=== PATIENT | female | born 1945 ===

== ENCOUNTER 2018-02-16 19:51 | Inpatient (IN) | payer MEDICARE, MEDICAID ==
--- NOTE | 2018-02-16 22:01 | ED PDOC ---
HPI: Psych/Substance Abuse Time Seen by Provider: 02/16/18 21:00 Chief Complaint (Nursing): Psychiatric Evaluation Chief Complaint (Provider): Psychiatric Evaluation History Per: Family (daughters) History/Exam Limitations: no limitations Onset/Duration Of Symptoms: Hrs Current Symptoms Are (Timing): Still Present Additional History Per: EMS Additional Complaint(s): 72 year old female was brought to the ED via EMS for psychiatric evaluation. Her two daughters have custody over the patient and state the patient does not have food and they brought her here for evaluation and admission. Patient has a history of dementia and Alzheimers. PMD: Gelacio Wilson Past Medical History Reviewed: Historical Data, Nursing Documentation, Vital Signs Vital Signs: Last Vital Signs Temp 98.4 F 02/16/18 20:02 Pulse 106 H 02/16/18 20:02 Resp 16 02/16/18 20:02 BP 167/94 H 02/16/18 20:02 Pulse Ox 98 02/16/18 20:02 - Medical History PMH: Alzheimer's Disease, Anemia, Dementia Denies: Chronic Kidney Disease - Family History Family History: States: Unknown Family Hx - Allergies Allergies/Adverse Reactions: Allergies Allergy/AdvReac Type Severity Reaction Status Date / Time cortisone Allergy RASH Verified 02/16/18 19:58 Penicillins Allergy REDNESS Verified 02/16/18 19:58 Review of Systems Review Of Systems: ROS cannot be obtained secondary to pt's inabilty to answer questions. Physical Exam - Reviewed Nursing Documentation Reviewed: Yes Vital Signs Reviewed: Yes - Physical Exam Appears: Positive for: Non-toxic, No Acute Distress Head Exam: Positive for: ATRAUMATIC, NORMAL INSPECTION, NORMOCEPHALIC Skin: Positive for: Normal Color, Warm, Dry. Negative for: Rash Eye Exam: Positive for: Normal appearance, EOMI, PERRL ENT: Positive for: Normal ENT Inspection Neck: Positive for: Normal, Painless ROM, Supple. Negative for: Decreased ROM Cardiovascular/Chest: Positive for: Regular Rate, Rhythm. Negative for: Murmur Respiratory: Positive for: Normal Breath Sounds. Negative for: Decreased Breath Sounds, Wheezing, Respiratory Distress Gastrointestinal/Abdominal: Positive for: Normal Exam, Soft. Negative for: Tenderness Back: Positive for: Normal Inspection. Negative for: L CVA Tenderness, R CVA Tenderness Extremity: Positive for: Normal ROM. Negative for: Tenderness, Pedal Edema, Deformity Neurologic/Psych: Positive for: Alert, Oriented (x3). Negative for: Motor/Sensory Deficits - Laboratory Results Result Diagrams: 02/16/18 21:30 02/16/18 22:10 - ECG O2 Sat by Pulse Oximetry: 98 (RA) Pulse Ox Interpretation: Normal Medical Decision Making Medical Decision Making: Time: 2125 Initial Impression: psychiatric evaluation Initial Plan: EKG Alcohol serum CMP Drug screen Crisis Evaluation CBC w/ Differential CXR Urinalysis Reevaluation Pt is medically cleared for admission and further psychiatric evaluation Scribe Attestation: Documented by Namrata Burns, acting as a scribe for Dexter Mancia PA-C. Provider Scribe Attestation: All medical record entries made by the Scribe were at my direction and personally dictated by me. I have reviewed the chart and agree that the record accurately reflects my personal performance of the history, physical exam, medical decision making, and the department course for this patient. I have also personally directed, reviewed, and agree with the discharge instructions and disposition. Disposition - Clinical Impression Clinical Impression: Dementia with behavioral disturbance - Patient ED Disposition Is Patient to be Admitted: Yes Discussed With : Frank Duran Doctor Will See Patient In The: Hospital Counseled Patient/Family Regarding: Studies Performed, Diagnosis, Need For Followup - Disposition Disposition Time: 23:50 Condition: STABLE Forms: [employer] (Vietnamese) - Pt Status Changed To: Hospital Disposition Of: Inpatient - Admit Certification Admit to Inpatient:: After my assessment, the patient will require hospitalization for at least two midnights. This is because of the severity of symptoms shown, intensity of services needed, and/or the medical risk in this patient being treated as an outpatient.
[2018-02-16 22:33] LABS: BASO % 0.6 % (0.0-2.0); EOS # 0.2 K/uL (0.0-0.7); EOS % 5.1 % (0.0-4.0); HEMOGLOBIN 13.4 g/dL (12.0-16.0); LYMPH # 1.4 K/uL (1.0-4.3); MEAN CORPUSCULAR HEMOGLOBIN 30.3 pg (27.0-31.0); MEAN CORPUSCULAR HGB CONC 33.7 g/dL (33.0-37.0); MONO # 0.4 K/uL (0.0-0.8); MONO % 8.9 % (0.0-10.0); NEUT # 2.7 K/uL (1.8-7.0); NEUT % 56.4 % (50.0-75.0); NRBC % 0.2 % (0.0-0.0); RBC 4.41 Mil/uL (3.80-5.20); WHITE BLOOD COUNT 4.9 K/uL (4.8-10.8)
[2018-02-16 22:35] LABS: URINE BILIRUBIN NEGATIVE (NEGATIVE); URINE BLOOD SMALL (NEGATIVE); URINE CLARITY CLEAR (Clear); URINE COLOR YELLOW (YELLOW); URINE GLUCOSE (UA) NEG (NEGATIVE); URINE LEUKOCYTE ESTERASE NEG Leu/uL (Negative); URINE PROTEIN NEGATIVE (NEGATIVE); URINE UROBILINOGEN 0.2-1.0 mg/dL (0.2-1.0)
[2018-02-16 22:48] LABS: BARBITURATES, UR NEGATIVE (NEGATIVE); BENZODIAZEPINES, UR NEGATIVE (NEGATIVE); OPIATES, UR NEGATIVE (NEGATIVE); PHENCYCLIDINE, UR NEGATIVE (NEGATIVE)
[2018-02-16 23:02] LABS: BLOOD UREA NITROGEN 16 mg/dl (7-17); CALCIUM 8.9 mg/dL (8.4-10.2); GFR NON-AFRICAN AMERICAN > 60
[2018-02-16 23:03] LABS: ALB/GLOB RATIO 1.2 (1.0-2.1); ALT/SGPT 22 U/L (9-52); AST/SGOT 22 U/L (14-36)
[2018-02-17] MEDS ORDERED: Magnesium Hydroxide Susp 30 ml UD PO PRN (02:55)
[2018-02-17] MEDS ORDERED: Alum-Mag Hydrox-Simethicone Susp (30 mL) PO PRN (02:55)
[2018-02-17] MEDS ORDERED: Bismuth Subsalicylate 262 mg/15 ml Sus (240 ml) PO PRN (02:55)
[2018-02-17 08:07] LABS: T4 6.61 ug/dl (5.5-11.0)
[2018-02-17] MEDS: Levothyroxine 75 MCG TAB PO SCH (11:10)
--- NOTE | 2018-02-17 11:40 | PCM.PSYCH ---
Initial Psychiatric Evaluation - Initial Psychiatric Evaluation Type of Admission: Voluntary Legal Status: DPOA Chief Complaint (in patient's own words): "My daughter's is doing something to me." Patient's Reaction to Hospitalization: HPI: 72 yo female w/ h/o Alzheimer's Dementia, presents w/ worsening memory, paranoia that she is being poisoned or contaminated, feelings that her daughter is mistreating her, belief that someone broke into her home and changed the alarm, tangential speech, mood lability, poor insight/judgment. Patient has also been hoarding at home. She did not have food at home and has decreased ability to care for herself. Automotive Dismantler discussed case w/ patient's daughter, Denise Atkins ([phone]), who gave curriculum writer to modify medications as psychiatrically and medically indicated. Automotive Dismantler informed patient's daughter that there is an increased risk of with treatment with antipsychotics in patient's w/ dementia. PPHx: No history of psychiatric admissions or medications PMHx: Hypothyroidism; HLD, anemia, h/o bladder surery, h/o colon polyp resection ALL: Cortison, PCN SHx: Lives alone, denies drugs/etoh/ cig use Current Medications: Active Medications Generic Name Dose Route Start Last Admin Trade Name Freq PRN Reason Stop Dose Admin Acetaminophen 650 mg 02/17/18 02:55 02/17/18 03:12 Tylenol 325mg Tab PO 650 mg Q4 PRN Administration Pain, moderate (4-7) Al Hydrox/Mg Hydrox/Simethicone 30 ml 02/17/18 02:55 Maalox Plus 30 Ml PO Q4 PRN Dyspepsia Bismuth Subsalicylate 524 mg 02/17/18 02:55 Pepto-Bismol PO Q4 PRN Diarrhea Donepezil HCl 5 mg 02/17/18 22:00 Aricept PO HS TYSHAWN Levothyroxine Sodium 75 mcg 02/17/18 11:30 02/17/18 11:10 Synthroid PO 75 mcg DAILY@0630 TYSHAWN Administration Lorazepam 0.5 mg 02/17/18 02:55 Ativan PO 03/03/18 02:56 HS PRN Insomnia Lorazepam 0.5 mg 02/17/18 02:55 Ativan PO 03/03/18 02:56 Q6 PRN Anixety/Agitation Magnesium Hydroxide 30 ml 02/17/18 02:55 Milk Of Magnesia PO HS PRN Constipation Risperidone 0.25 mg 02/17/18 22:00 Risperidone Odt 0.25mg PO HS TYSHAWN Past Psychiatric History - Past Psychiatric History Previous Treatment History: None Pertinent Medical Hx (Current Medical&Sleep Prob, Allergies): Allergies Allergy/AdvReac Type Severity Reaction Status Date / Time cortisone Allergy RASH Verified 02/16/18 19:58 Penicillins Allergy REDNESS Verified 02/16/18 19:58 Levothyroxine [Synthroid] 75 mcg PO DAILY 02/17/18 Review of Systems - Psychiatric Psychiatric: As Per HPI, Anxiety, Behavioral Changes, Change in Appetite, Difficulty Concentrating, Irritability, Memory Loss, Mood Swings, Paranoia Mental Status Examination - Personal Presentation Personal Presentation: Looks stated age - Affect Affect: Constricted - Motor Activity Motor Activity: Calm - Reliability in Providing Information Reliability in Providing Information: Poor, due to cognitve impairment - Speech Speech: Tangential - Mood Mood: Anxious - Formal Thought Process Formal Thought Process: Paranoia - Hallucinations/Delusions Additional comments: No AH/VH/paranoia/delusions - Obsessions/Compulsions Obsessions: No Compulsions: No - Cognitive Functions Orientation: Person, Time Sensorium: Alert Attention/Concentration: Easily distracted Judgement: Imparied, as evidence by: Poor judgement, Imparied, as evidence by: Lack of insight into illness Memory: Recent impaired, as evidence by: Inability to recall events of the day, Recent imparied as evidence by:Inability to complete 3/3 object recall - Risk Risk: Diminished functioning - Strength & Assets Inventory Strength & Assets Inventory: Family support - Limitations Limitations: Living alone, Decreased memory, recent DSM 5 DX - DSM 5 DSM 5 Diagnosis: Dementia with behavioral disturbance; Psychosis NOS - Recommended/Plan of Treatment Treatment Recommendations and Plan of Treatment: Dementia with behavioral disturbance; Psychosis NOS -Admit to psychiatry unit -Individual and group therapy -Start Aricept 5 mg PO HS -Start Risperda 0.25 mg PO HS -Medicine consult -Disposition planning -Psychoeducation -Case discussed w/ POA Projected ELOS: 7-10 days Discharge Plan and Discharge Criteria: Discharge when patient is psychiatrically stable - Smoking Cessation Smoking Cessation Initiated: No Reason for not providing: Not indicated
--- NOTE | 2018-02-17 12:21 | RAD ---
Date of service: 02/16/2018 HISTORY: admit COMPARISON: No prior. TECHNIQUE: Chest PA and lateral FINDINGS: LUNGS: No active pulmonary disease. PLEURA: No significant pleural effusion identified. No pneumothorax apparent. CARDIOVASCULAR: No aortic atherosclerotic calcification present. Normal cardiac size. No pulmonary vascular congestion. OSSEOUS STRUCTURES: No significant abnormalities. VISUALIZED UPPER ABDOMEN: Normal. OTHER FINDINGS: None. IMPRESSION: No active disease.
[2018-02-17 17:54] LABS: FOLATE 13.5 ng/mL
[2018-02-17] MEDS ORDERED: RISPERIDONE 0.25 MG ODT PO SCH (22:00)
--- NOTE | 2018-02-18 00:16 | CP.PCM.HP ---
History of Present Illness - History of Present Illness History of Present Illness: CC: Refusing to take her Medication due to Paranoid Behaviour History of Present Illness: A 72 year old female was brought to the ED via EMS for psychiatric evaluation. Her two daughters have custody over the patient and state the patient does not have food and they brought her here for evaluation and admission. Patient has a history of dementia and Alzheimers with Paranoid Behaviour with refusing to take her medications. Patient states her daughter was bothering her, and the patient states that she told her daughter that she will report her to the legal systems. Present on Admission - Present on Admission Any Indicators Present on Admission: No Review of Systems - Review of Systems All systems: reviewed and no additional remarkable complaints except Review of Systems: as per HPI Past Patient History - Past Medical History & Family History Past Medical History?: Yes Past Family History: Reviewed and not pertinent - Past Social History Smoking Status: Never Smoked Alcohol: None Drugs: Denies - CARDIAC Hx Cardiac Disorders: No Hx Hypercholesterolemia: Yes Hx Hypertension: No - PULMONARY Hx Tuberculosis: No - NEUROLOGICAL Hx Alzheimer's Disease: Yes Hx Dementia: Yes - HEENT Hx HEENT Problems: No - RENAL Hx Chronic Kidney Disease: No - ENDOCRINE/METABOLIC Hx Endocrine Disorders: No Hx Hypothyroidism: Yes - HEMATOLOGICAL/ONCOLOGICAL Hx Anemia: Yes - INTEGUMENTARY Hx Dermatological Problems: No - MUSCULOSKELETAL/RHEUMATOLOGICAL Hx Musculoskeletal Disorders: No Hx Falls: No - GASTROINTESTINAL Hx Gastrointestinal Disorders: No - GENITOURINARY/GYNECOLOGICAL Hx Sexually Transmitted Disorders: No - PSYCHIATRIC Hx Substance Use: No - SURGICAL HISTORY Hx Surgeries: No - ANESTHESIA Hx Anesthesia: No Meds Allergies/Adverse Reactions: Allergies Allergy/AdvReac Type Severity Reaction Status Date / Time cortisone Allergy RASH Verified 02/16/18 19:58 Penicillins Allergy REDNESS Verified 02/16/18 19:58 Physical Exam - Constitutional Appears: Well, No Acute Distress - Head Exam Head Exam: ATRAUMATIC, NORMAL INSPECTION, NORMOCEPHALIC - Eye Exam Eye Exam: EOMI, Normal appearance, PERRL Pupil Exam: NORMAL ACCOMODATION, PERRL - ENT Exam ENT Exam: Mucous Membranes Moist, Normal Exam - Neck Exam Neck exam: Positive for: Normal Inspection - Respiratory Exam Respiratory Exam: Clear to Auscultation Bilateral, NORMAL BREATHING PATTERN - Cardiovascular Exam Cardiovascular Exam: REGULAR RHYTHM, +S1, +S2 - GI/Abdominal Exam GI & Abdominal Exam: Normal Bowel Sounds, Soft. absent: Tenderness - Extremities Exam Extremities exam: Positive for: full ROM, normal capillary refill, normal inspection - Back Exam Back exam: FULL ROM, NORMAL INSPECTION - Neurological Exam Neurological exam: Alert, CN II-XII Intact, Normal Gait, Oriented x3, Reflexes Normal - Psychiatric Exam Additional comments: +Paranoid. Tangential. - Skin Skin Exam: Dry, Intact, Normal Color, Warm Results - Vital Signs Recent Vital Signs: Last Vital Signs Temp 98.2 F 02/17/18 15:51 Pulse 69 02/17/18 15:51 Resp 18 02/17/18 15:51 BP 119/60 02/17/18 15:51 Pulse Ox 98 02/17/18 02:07 - Labs Result Diagrams: 02/22/18 07:30 02/22/18 07:30 Labs: Laboratory Results - last 24 hr 02/17/18 02/17/18 02/17/18 06:15 06:15 06:15 Hemoglobin A1c 5.8 Ferritin 37.0 Triglycerides 85 Cholesterol 158 LDL Cholesterol Direct 103 HDL Cholesterol 49 Vitamin B12 314 Folate 13.5 Free T4 1.00 Thyroxine (T4) 6.61 TSH 3rd Generation 2.25 RPR 02/17/18 06:15 Hemoglobin A1c Ferritin Triglycerides Cholesterol LDL Cholesterol Direct HDL Cholesterol Vitamin B12 Folate Free T4 Thyroxine (T4) TSH 3rd Generation RPR Nonreactive Assessment & Plan (1) Dementia with behavioral disturbance Assessment and Plan: Paranoid Personality Status: Acute Priority: Medium (2) Hypothyroidism (acquired) Status: Acute Priority: Low - Assessment and Plan (Free Text) Plan: C/w Current Care as per Psych recommendation.
[2018-02-18] MEDS: Levothyroxine 75 MCG TAB PO SCH (06:24)
--- NOTE | 2018-02-18 10:49 | PCM.BM ---
<Maren Mulleniraida Stein - Last Filed: 02/18/18 10:47> Treatment Plan Problems - Problems identified on initial assessmt Delusions Date Initiated: 02/18/18 Time Initiated: 10:48 Assessment reference: HP, NA Status: Active Problem 2 Date Initiated: 02/18/18 Time Initiated: 10:49 Assessment reference: HP, NA Status: Active Treatment assets and liabiliti Patient Assests: ADL independent, negotiates basic needs Patient Liabilities: live alone, relationship conflicts, medical problems, imparied memory - Milieu Protocol Maintain good personal hygiene: daily Encourage regular showers, daily Remind patient to perform daily oral care, daily Assist patient to perform ADL's Conduct patient checks and document Observation sheet: Q15 minutes Maintain personal safety: every shift Educate patient to report safety concerns to staff, every shift Monitor environment for contraband/sharps Medication safety: Monitor for expected outcome, potential side effects: every shift, Assess barriers to learning: every shift, Assess readiness for medication education: every shift Milieu Narrative: Dementia with behavioral disturbance; Psychosis NOS -Admit to psychiatry unit -Individual and group therapy -Start Aricept 5 mg PO HS -Start Risperda 0.25 mg PO HS -Medicine consult -Disposition planning -Psychoeducation -Case discussed w/ POA Discharge/Continuing Care - Treatment Team Participation Patient/Family/SO Statement: Dementia with behavioral disturbance; Psychosis NOS -Admit to psychiatry unit -Individual and group therapy -Start Aricept 5 mg PO HS -Start Risperda 0.25 mg PO HS -Medicine consult -Disposition planning -Psychoeducation -Case discussed w/ POA <Madonna Fagan - Last Filed: 02/18/18 11:13> - Diagnosis (1) Dementia with behavioral disturbance Status: Acute Interventions: Medication management, Individual and group therapy, Psychoeducation 02/18/18 11:14 (2) Psychosis Status: Acute Interventions: Medication management, Individual and group therapy, Psychoeducation 02/18/18 11:14 <Dom Flores - Last Filed: 02/20/18 19:45> Family Contact Family involvement: Family/SO is involved Family contact: Patient agrees to contact, Family has been contacted by patient, Telephone contact initiated by staff Family contact name: Denise BenavidezaurelioBarrientos Family contacted how many times per week?: 4 Family contact comment: Vending Service Technician spoke with pt's daughter and POA, Denise [phone], to gain collateral and discuss treatment and discharge. Denise reported that pt was brought to the ED after pt's other daughter came to visit her apartment and found it to be extremely hot and pt did not have any food in her refrigerator. Denise reported that pt will not speak to her or allow her into her apartment because the pt believes that Denise is poisoning her. Denise reported that pt was residing in [place] near her other daughter and would call Denise and tell her that the other daughter was trying to kill her or say that she attempted to hit her with a car. Pt also called the police in September with fears that someone was attempting to break into her apartment to poison her. Denise reported that the police found all of pt's belongings in boxes. Denise reported that pt has no prior psych history, but was diagnosed with Alzheimer's Disease on Oct 29, 2015 by Jeni Vanegas. Pt's two daughters do not feel that pt is safe to return home and are hoping to have pt placed in Long-term care. - Goals for Treatment Patient goals for treatment: Pt unable to formulate goals due to dementia. Patient's family/SO goals for treatment: Daughter would like pt placed in long- term care where gher dementia can be specially treated. Discharge/Continuing Care - Education Needs Education Needs: Family Medication, Family Diagnosis/Disease Process, Family Coping Skills, Family Aftercare Safety Plan, Patient Medication, Patient Diagnosis/Disease Process, Patient Coping Skills, Patient Aftercare Safety Plan - Discharge Discharge Criteria: Tolerates medication w/o severe side effects, Free of paranoid thoughts, Free of agitation, Reduction of target symptoms Discharge to:: [facility]way Facility - Treatment Team Participation Patient/Family/SO Statement: 02/20/18 19:44 Pt seen in team on 02/18/18. Pt unable to participate due to extreme paranoia toward family, no insight into condition, and resistance to placement and diagnosis of dementia. Discussed with Family/SO: Yes Was Patient/Family/SO present at Treatment Team Meeting: Yes
--- NOTE | 2018-02-18 11:18 | PCM.PYCHPN ---
Psychiatric Progress Note - Psychiatric Progress Note Patient seen today, length of contact: Pt evaluated, case discussed w/ team, chart reviewed Patient Chief Complaint: "My daughter's is doing something to me." Problems Identified/Issues Discussed: Patient refused to take medications last night. She continues to be paranoid, expressing beliefs that her son-in-law wants to kill her and that her daughter wants to steal all of her money. She continues to have poor insight/judgment and does not believe she has any memory deficits. Medication Change: No Medical Record Reviewed: Yes Consults ordered or reviewed: Medicine consult Mental Status Examination - Cognitive Function Orientation: Person, Time Memory: Impaired Association: Loose Fund of Knowledge: Poor Decription of patient's judgement and insights: Poor I/J - Mood Mood: Anxious - Affect Affect: Constricted - Formal Thought Process Formal Thought Process: Paranoia Psychotic Thoughts and Behaviors: +Paranoia - Suicidal Ideation Suicidal Ideation: No - Homicidal Ideation Homicidal Ideation: No Goal/Treatment Plan - Goal/Treatment Plan Need for Continued Stay: Remain at risks for inpatient hospitalization, Severe functional impairment Progress Toward Problem(s) and Goals/Treatment Plan: Dementia with behavioral disturbance; Psychosis NOS -Individual and group therapy -Continue to offer Aricept and Risperdal; patient current refusing -Medicine consult -Disposition planning -Psychoeducation -Case discussed w/ POA
--- NOTE | 2018-02-18 16:42 | CP.PCM.PN ---
Subjective - Date & Time of Evaluation Date of Evaluation: 02/18/18 Time of Evaluation: 13:10 Objective - Vital Signs/Intake and Output Vital Signs (last 24 hours): Temp Pulse Resp BP Pulse Ox 98.4 F 71 18 123/78 98 02/18/18 16:04 02/18/18 16:04 02/18/18 16:04 02/18/18 16:04 02/17/18 02:07 - Medications Medications: Current Medications Acetaminophen (Tylenol 325mg Tab) 650 mg PO Q4 PRN PRN Reason: Pain, moderate (4-7) Last Admin: 02/17/18 03:12 Dose: 650 mg Al Hydrox/Mg Hydrox/Simethicone (Maalox Plus 30 Ml) 30 ml PO Q4 PRN PRN Reason: Dyspepsia Bismuth Subsalicylate (Pepto-Bismol) 524 mg PO Q4 PRN PRN Reason: Diarrhea Donepezil HCl (Aricept) 5 mg PO HS [facility] Last Admin: 02/18/18 00:57 Dose: Not Given Levothyroxine Sodium (Synthroid) 75 mcg PO DAILY@0630 [facility] Last Admin: 02/18/18 06:24 Dose: 75 mcg Lorazepam (Ativan) 0.5 mg PO HS PRN PRN Reason: Insomnia Stop: 03/03/18 02:56 Lorazepam (Ativan) 0.5 mg PO Q6 PRN PRN Reason: Anixety/Agitation Stop: 03/03/18 02:56 Magnesium Hydroxide (Milk Of Magnesia) 30 ml PO HS PRN PRN Reason: Constipation Risperidone (Risperdal M-Tab) 0.5 mg PO BID [facility] - Labs Labs: 02/16/18 21:30 02/16/18 22:10
[2018-02-18] MEDS: Risperidone M tab 0.5MG PO SCH (21:15)
[2018-02-19] MEDS: Levothyroxine 75 MCG TAB PO SCH (06:00)
[2018-02-19] MEDS: Risperidone M tab 0.5MG PO SCH ×2 (08:33→21:09)
--- NOTE | 2018-02-19 20:45 | CP.PCM.PN ---
Subjective - Date & Time of Evaluation Date of Evaluation: 02/19/18 Time of Evaluation: 16:15 Objective - Vital Signs/Intake and Output Vital Signs (last 24 hours): Temp Pulse Resp BP Pulse Ox 97.9 F 88 20 129/69 98 02/19/18 15:34 02/19/18 15:34 02/19/18 15:34 02/19/18 15:34 02/17/18 02:07 - Medications Medications: Current Medications Acetaminophen (Tylenol 325mg Tab) 650 mg PO Q4 PRN PRN Reason: Pain, moderate (4-7) Last Admin: 02/17/18 03:12 Dose: 650 mg Al Hydrox/Mg Hydrox/Simethicone (Maalox Plus 30 Ml) 30 ml PO Q4 PRN PRN Reason: Dyspepsia Bismuth Subsalicylate (Pepto-Bismol) 524 mg PO Q4 PRN PRN Reason: Diarrhea Donepezil HCl (Aricept) 5 mg PO HS [facility] Last Admin: 02/18/18 21:15 Dose: Not Given Levothyroxine Sodium (Synthroid) 75 mcg PO DAILY@0630 [facility] Last Admin: 02/19/18 06:00 Dose: 75 mcg Lorazepam (Ativan) 0.5 mg PO HS PRN PRN Reason: Insomnia Stop: 03/03/18 02:56 Lorazepam (Ativan) 0.5 mg PO Q6 PRN PRN Reason: Anixety/Agitation Stop: 03/03/18 02:56 Magnesium Hydroxide (Milk Of Magnesia) 30 ml PO HS PRN PRN Reason: Constipation Risperidone (Risperdal M-Tab) 0.5 mg PO BID [facility] Last Admin: 02/19/18 08:33 Dose: Not Given - Labs Labs: 02/16/18 21:30 02/16/18 22:10
--- NOTE | 2018-02-19 22:24 | PCM.PYCHPN ---
Psychiatric Progress Note - Psychiatric Progress Note Patient seen today, length of contact: Pt evaluated, case discussed w/ team, chart reviewed Patient Chief Complaint: came to hospital for being upset does not think she needs medicine, staff reports that pt. continues to be intrusive although somewhat more redirectable. rx adherent, seen in social area. Problems Identified/Issues Discussed: alteration in mood alteration in level of function Medical Problems: per chart Diagnostic Results: per psychiatry per medicine per nursing per nephrology social worker per recreational therapy Medication Change: No Medical Record Reviewed: Yes Consults ordered or reviewed: pt seen by hospitalist Mental Status Examination - Cognitive Function Orientation: Person, Time Memory: Impaired Association: Loose Fund of Knowledge: Poor Decription of patient's judgement and insights: impaired - Mood Mood: Anxious - Affect Affect: Broad - Speech Speech: Appropriate - Formal Thought Process Formal Thought Process: Paranoia, Circumstantial Psychotic Thoughts and Behaviors: somewhat improved - Suicidal Ideation Suicidal Ideation: No - Homicidal Ideation Homicidal Ideation: No Goal/Treatment Plan - Goal/Treatment Plan Need for Continued Stay: Remain at risks for inpatient hospitalization, Severe functional impairment Progress Toward Problem(s) and Goals/Treatment Plan: inpt milieu vital signs/clinical observation per protocol and per clinical adjust meds per clinical status discharge planning in process Estimated Date of D/C: 02/23/18 - Smoking Cessation Smoking Cessation Initiated: No Reason for not providing: pt defers
[2018-02-20] MEDS: Levothyroxine 75 MCG TAB PO SCH (06:05)
[2018-02-20] MEDS: Risperidone M tab 0.5MG PO SCH ×2 (11:03→16:15)
--- NOTE | 2018-02-20 20:07 | PCM.PYCHPN ---
Psychiatric Progress Note - Psychiatric Progress Note Patient seen today, length of contact: Pt evaluated, case discussed w/ team, chart reviewed Patient Chief Complaint: PT denies having mental illness and denies needing medication-pt refused medication (psychiatric), seen in social area, pt complained of rectal pain seen staff Dr maribeth hughes per staff. _ Problems Identified/Issues Discussed: alteration in mood alteration in level of function Medical Problems: per chart Diagnostic Results: per psychiatry per medicine per nursing per social services coordinator per recreational therapy DSM 5 Symptoms Update: continues to be paranoid refusing medications (psychiatric) Medication Change: No Medical Record Reviewed: Yes Consults ordered or reviewed: pt seen by dr robin Mental Status Examination - Cognitive Function Orientation: Person, Time Memory: Impaired Association: Loose Fund of Knowledge: Poor Decription of patient's judgement and insights: impaired - Mood Mood: Anxious - Affect Affect: Broad - Speech Speech: Appropriate - Formal Thought Process Formal Thought Process: Paranoia, Circumstantial Psychotic Thoughts and Behaviors: unchanged - Suicidal Ideation Suicidal Ideation: No - Homicidal Ideation Homicidal Ideation: No Goal/Treatment Plan - Goal/Treatment Plan Need for Continued Stay: Remain at risks for inpatient hospitalization, Severe functional impairment Progress Toward Problem(s) and Goals/Treatment Plan: inpt milieu vital signs/clinical observation per protocol and per clinical adjust meds per clinical status-pt has been refusing psychiatric medications discharge planning in process Estimated Date of D/C: 02/23/18 - Smoking Cessation Smoking Cessation Initiated: No Reason for not providing: pt defers
--- NOTE | 2018-02-20 20:58 | CP.PCM.PN ---
Subjective - Date & Time of Evaluation Date of Evaluation: 02/20/18 Time of Evaluation: 15:00 Objective - Vital Signs/Intake and Output Vital Signs (last 24 hours): Temp Pulse Resp BP Pulse Ox 98.6 F 78 20 121/69 98 02/20/18 05:57 02/20/18 15:49 02/20/18 15:49 02/20/18 15:49 02/17/18 02:07 - Medications Medications: Current Medications Acetaminophen (Tylenol 325mg Tab) 650 mg PO Q4 PRN PRN Reason: Pain, moderate (4-7) Last Admin: 02/17/18 03:12 Dose: 650 mg Al Hydrox/Mg Hydrox/Simethicone (Maalox Plus 30 Ml) 30 ml PO Q4 PRN PRN Reason: Dyspepsia Last Admin: 02/20/18 20:56 Dose: 30 ml Bismuth Subsalicylate (Pepto-Bismol) 524 mg PO Q4 PRN PRN Reason: Diarrhea Donepezil HCl (Aricept) 5 mg PO HS [facility] Last Admin: 02/19/18 21:10 Dose: Not Given Hydrocortisone (Cortizone 1% Cream) 1 applic TOP TID [facility] Levothyroxine Sodium (Synthroid) 75 mcg PO DAILY@0630 [facility] Last Admin: 02/20/18 06:05 Dose: 75 mcg Lorazepam (Ativan) 0.5 mg PO HS PRN PRN Reason: Insomnia Stop: 03/03/18 02:56 Lorazepam (Ativan) 0.5 mg PO Q6 PRN PRN Reason: Anixety/Agitation Stop: 03/03/18 02:56 Magnesium Hydroxide (Milk Of Magnesia) 30 ml PO HS PRN PRN Reason: Constipation Risperidone (Risperdal M-Tab) 0.5 mg PO BID [facility] Last Admin: 02/20/18 16:15 Dose: Not Given - Labs Labs: 02/16/18 21:30 02/16/18 22:10
[2018-02-21] MEDS: Levothyroxine 75 MCG TAB PO SCH (05:55)
[2018-02-21] MEDS ORDERED: Hydrocortisone-Pramoxine(Proctofoam HC) EXT SCH (09:00)
[2018-02-21] MEDS: Risperidone M tab 0.5MG PO SCH ×2 (10:21→18:33)
--- NOTE | 2018-02-21 11:06 | PCM.PYCHPN ---
Psychiatric Progress Note - Psychiatric Progress Note Patient seen today, length of contact: Pt evaluated, case discussed w/ team, chart reviewed Patient Chief Complaint: "My daughter's is doing something to me." Problems Identified/Issues Discussed: Patient continues to be paranoid and refuses to take an antipsychotic. She continues to believe that her daughter wants to kill her. Cemetery Counselor called patient's PMD Dr. Davenport, , to discuss the case. He reports that patient has a history of dementia and paranoia. Cemetery Counselor informed PMD that patient would benefit from treatment with an antipsychotic and he was in agreement. Patient stated that she will take Risperdal, once she is able to talk with her PMD. Medication Change: No Medical Record Reviewed: Yes Consults ordered or reviewed: Medicine consult Mental Status Examination - Cognitive Function Orientation: Person, Time Memory: Impaired Association: Loose Fund of Knowledge: Poor - Mood Mood: Anxious - Affect Affect: Broad - Speech Speech: Appropriate - Formal Thought Process Formal Thought Process: Paranoia, Circumstantial Psychotic Thoughts and Behaviors: +Paranoia - Suicidal Ideation Suicidal Ideation: No - Homicidal Ideation Homicidal Ideation: No Goal/Treatment Plan - Goal/Treatment Plan Need for Continued Stay: Remain at risks for inpatient hospitalization, Severe functional impairment Progress Toward Problem(s) and Goals/Treatment Plan: Dementia with behavioral disturbance; Psychosis NOS -Individual and group therapy -Continue to offer Aricept and Risperdal -Medicine consult -Disposition planning -Psychoeducation -Case discussed w/ POA and patient's PMD Estimated Date of D/C: 02/25/18
--- NOTE | 2018-02-22 01:36 | CP.PCM.PN ---
Subjective - Date & Time of Evaluation Date of Evaluation: 02/21/18 Time of Evaluation: 23:00 Objective - Vital Signs/Intake and Output Vital Signs (last 24 hours): Temp Pulse Resp BP Pulse Ox 98.1 F 89 18 125/66 98 02/21/18 15:40 02/21/18 15:40 02/21/18 15:40 02/21/18 15:40 02/17/18 02:07 - Medications Medications: Current Medications Acetaminophen (Tylenol 325mg Tab) 650 mg PO Q4 PRN PRN Reason: Pain, moderate (4-7) Last Admin: 02/17/18 03:12 Dose: 650 mg Al Hydrox/Mg Hydrox/Simethicone (Maalox Plus 30 Ml) 30 ml PO Q4 PRN PRN Reason: Dyspepsia Last Admin: 02/20/18 20:56 Dose: 30 ml Bismuth Subsalicylate (Pepto-Bismol) 524 mg PO Q4 PRN PRN Reason: Diarrhea Donepezil HCl (Aricept) 5 mg PO HS [facility] Last Admin: 02/21/18 22:24 Dose: Not Given Hydrocortisone (Cortizone 1% Cream) 1 applic TOP TID [facility] Last Admin: 02/21/18 13:00 Dose: Not Given Levothyroxine Sodium (Synthroid) 75 mcg PO DAILY@0630 [facility] Last Admin: 02/21/18 05:55 Dose: 75 mcg Lorazepam (Ativan) 0.5 mg PO HS PRN PRN Reason: Insomnia Stop: 03/03/18 02:56 Lorazepam (Ativan) 0.5 mg PO Q6 PRN PRN Reason: Anixety/Agitation Stop: 03/03/18 02:56 Magnesium Hydroxide (Milk Of Magnesia) 30 ml PO HS PRN PRN Reason: Constipation Risperidone (Risperdal M-Tab) 0.5 mg PO BID [facility] Last Admin: 02/21/18 18:33 Dose: 0.5 mg - Labs Labs: 02/16/18 21:30 02/16/18 22:10
[2018-02-22] MEDS: Levothyroxine 75 MCG TAB PO SCH (05:46)
[2018-02-22 08:30] LABS: BASO % 0.9 % (0.0-2.0); EOS # 0.3 K/uL (0.0-0.7); EOS % 6.4 % (0.0-4.0); HEMOGLOBIN 14.8 g/dL (12.0-16.0); LYMPH # 1.5 K/uL (1.0-4.3); LYMPH % 31.3 % (20.0-40.0); MEAN CELL VOLUME 92.6 fl (81.0-99.0); MEAN CORPUSCULAR HEMOGLOBIN 30.3 pg (27.0-31.0); MEAN CORPUSCULAR HGB CONC 32.7 g/dL (33.0-37.0); MONO # 0.4 K/uL (0.0-0.8); MONO % 8.6 % (0.0-10.0); NEUT # 2.5 K/uL (1.8-7.0); NEUT % 52.8 % (50.0-75.0); NRBC % 0.1 % (0.0-0.0); RBC 4.89 Mil/uL (3.80-5.20); RED CELL DISTRIBUTION WIDTH 15.5 % (11.5-14.5); WHITE BLOOD COUNT 4.7 K/uL (4.8-10.8)
[2018-02-22 08:40] LABS: ALB/GLOB RATIO 1.2 (1.0-2.1); ALBUMIN 4.2 g/dL (3.5-5.0); ALT/SGPT 21 U/L (9-52); AST/SGOT 21 U/L (14-36); BLOOD UREA NITROGEN 21 mg/dl (7-17); CALCIUM 9.7 mg/dL (8.4-10.2); GFR NON-AFRICAN AMERICAN > 60
[2018-02-22] MEDS: Risperidone M tab 0.5MG PO SCH ×2 (09:02→17:13)
--- NOTE | 2018-02-22 10:44 | PCM.PYCHPN ---
Psychiatric Progress Note - Psychiatric Progress Note Patient seen today, length of contact: Pt evaluated, case discussed w/ team, chart reviewed Patient Chief Complaint: "My daughter's is doing something to me." Problems Identified/Issues Discussed: Patient continues to be paranoid towards her daughter and son-in-law. She believes her daughter is in danger from her son-in-law and also believes that her daughter tells her son-in-law to harm her. She also states that her daughter was hiding food from her and not allowing her to eat. She started taking the Risperdal yesterday. No adverse effects to medications reported. She continues to have poor insight into her chronic memory deficits. Medication Change: No Medical Record Reviewed: Yes Consults ordered or reviewed: Medicine consult Mental Status Examination - Cognitive Function Orientation: Person, Time Memory: Impaired Concentration: Poor Association: Loose Fund of Knowledge: Poor Decription of patient's judgement and insights: Poor I/J - Mood Mood: Anxious - Affect Affect: Broad - Speech Speech: Appropriate - Formal Thought Process Formal Thought Process: Paranoia, Circumstantial Psychotic Thoughts and Behaviors: +Paranoia - Suicidal Ideation Suicidal Ideation: No - Homicidal Ideation Homicidal Ideation: No Goal/Treatment Plan - Goal/Treatment Plan Need for Continued Stay: Remain at risks for inpatient hospitalization, Severe functional impairment Progress Toward Problem(s) and Goals/Treatment Plan: Dementia with behavioral disturbance; Psychosis NOS -Individual and group therapy -Continue Aricept and Risperdal; patient is now taking the medications -Medicine consult -Disposition planning -Psychoeducation -Case discussed w/ POA and patient's PMD Estimated Date of D/C: 02/25/18
--- NOTE | 2018-02-22 18:10 | CP.PCM.PN ---
Subjective - Date & Time of Evaluation Date of Evaluation: 02/22/18 Time of Evaluation: 15:15 - Subjective Subjective: No new complaint. Objective - Vital Signs/Intake and Output Vital Signs (last 24 hours): Temp Pulse Resp BP Pulse Ox 98.1 F 89 19 109/56 L 98 02/22/18 15:22 02/22/18 15:22 02/22/18 15:22 02/22/18 15:22 02/17/18 02:07 - Medications Medications: Current Medications Acetaminophen (Tylenol 325mg Tab) 650 mg PO Q4 PRN PRN Reason: Pain, moderate (4-7) Last Admin: 02/17/18 03:12 Dose: 650 mg Al Hydrox/Mg Hydrox/Simethicone (Maalox Plus 30 Ml) 30 ml PO Q4 PRN PRN Reason: Dyspepsia Last Admin: 02/20/18 20:56 Dose: 30 ml Bismuth Subsalicylate (Pepto-Bismol) 524 mg PO Q4 PRN PRN Reason: Diarrhea Donepezil HCl (Aricept) 5 mg PO HS [facility] Last Admin: 02/21/18 22:24 Dose: Not Given Hydrocortisone (Cortizone 1% Cream) 1 applic TOP TID [facility] Last Admin: 02/22/18 17:12 Dose: Not Given Levothyroxine Sodium (Synthroid) 75 mcg PO DAILY@0630 [facility] Last Admin: 02/22/18 05:46 Dose: 75 mcg Lorazepam (Ativan) 0.5 mg PO HS PRN PRN Reason: Insomnia Stop: 03/03/18 02:56 Lorazepam (Ativan) 0.5 mg PO Q6 PRN PRN Reason: Anixety/Agitation Stop: 03/03/18 02:56 Magnesium Hydroxide (Milk Of Magnesia) 30 ml PO HS PRN PRN Reason: Constipation Risperidone (Risperdal M-Tab) 0.5 mg PO BID [facility] Last Admin: 02/22/18 17:13 Dose: 0.5 mg - Labs Labs: 02/22/18 07:30 02/22/18 07:30 Assessment and Plan (1) Dementia with behavioral disturbance Status: Acute (2) Hypothyroidism (acquired) Status: Acute (3) Psychosis Status: Acute - Assessment and Plan (Free Text) Plan: Continue Current Care
[2018-02-23] MEDS: Levothyroxine 75 MCG TAB PO SCH (05:45)
[2018-02-23] MEDS: Risperidone M tab 0.5MG PO SCH ×2 (09:02→16:12)
--- NOTE | 2018-02-23 09:44 | PCM.PYCHPN ---
Psychiatric Progress Note - Psychiatric Progress Note Patient seen today, length of contact: Pt evaluated, case discussed w/ team, chart reviewed Patient Chief Complaint: "My daughter's is doing something to me." Problems Identified/Issues Discussed: Patient continues to be paranoid towards her daughter and son-in-law. She does not want to talk with her daughter unless there is a recording device to record the conversation. Regulator Tester informed patient that that is not possible. She has been compliant with Risperdal. No adverse effects to medications reported. She continues to have poor insight into her chronic memory deficits. Medication Change: No Medical Record Reviewed: Yes Consults ordered or reviewed: Medicine consult Mental Status Examination - Cognitive Function Orientation: Person, Time Memory: Impaired Concentration: Poor Association: Loose Fund of Knowledge: Poor Decription of patient's judgement and insights: Poor I/J - Mood Mood: Anxious - Affect Affect: Broad - Speech Speech: Appropriate - Formal Thought Process Formal Thought Process: Paranoia, Circumstantial Psychotic Thoughts and Behaviors: +Paranoia - Suicidal Ideation Suicidal Ideation: No - Homicidal Ideation Homicidal Ideation: No Goal/Treatment Plan - Goal/Treatment Plan Need for Continued Stay: Remain at risks for inpatient hospitalization, Severe functional impairment Progress Toward Problem(s) and Goals/Treatment Plan: Dementia with behavioral disturbance; Psychosis NOS -Individual and group therapy -Continue Aricept; patient currently refusing -Continue Risperdal 0.5 mg PO BID -Medicine consult -Disposition planning -Psychoeducation -Case discussed w/ POA and patient's PMD Estimated Date of D/C: 02/25/18
--- NOTE | 2018-02-23 23:50 | CP.PCM.PN ---
Subjective - Date & Time of Evaluation Date of Evaluation: 02/23/18 Time of Evaluation: 13:10 - Subjective Subjective: Continue to Refuse to take medications because paranoid behaviour.. Objective - Vital Signs/Intake and Output Vital Signs (last 24 hours): Temp Pulse Resp BP Pulse Ox 98.8 F 102 H 19 141/81 98 02/23/18 15:17 02/23/18 15:17 02/23/18 15:17 02/23/18 15:17 02/17/18 02:07 - Medications Medications: Current Medications Acetaminophen (Tylenol 325mg Tab) 650 mg PO Q4 PRN PRN Reason: Pain, moderate (4-7) Last Admin: 02/17/18 03:12 Dose: 650 mg Al Hydrox/Mg Hydrox/Simethicone (Maalox Plus 30 Ml) 30 ml PO Q4 PRN PRN Reason: Dyspepsia Last Admin: 02/20/18 20:56 Dose: 30 ml Bismuth Subsalicylate (Pepto-Bismol) 524 mg PO Q4 PRN PRN Reason: Diarrhea Donepezil HCl (Aricept) 5 mg PO HS [facility] Last Admin: 02/22/18 21:51 Dose: Not Given Hydrocortisone (Cortizone 1% Cream) 1 applic TOP TID [facility] Last Admin: 02/23/18 16:13 Dose: Not Given Levothyroxine Sodium (Synthroid) 75 mcg PO DAILY@0630 [facility] Last Admin: 02/23/18 05:45 Dose: 75 mcg Magnesium Hydroxide (Milk Of Magnesia) 30 ml PO HS PRN PRN Reason: Constipation Risperidone (Risperdal M-Tab) 0.5 mg PO BID [facility] Last Admin: 02/23/18 16:12 Dose: 0.5 mg - Labs Labs: 02/22/18 07:30 02/22/18 07:30 Assessment and Plan (1) Dementia with behavioral disturbance Status: Acute (2) Hypothyroidism (acquired) Status: Acute (3) Psychosis Status: Acute - Assessment and Plan (Free Text) Plan: Continue RX as per Psychiatrist
[2018-02-24] MEDS: Levothyroxine 75 MCG TAB PO SCH (06:15)
[2018-02-24] MEDS: Risperidone M tab 0.5MG PO SCH (08:45)
--- NOTE | 2018-02-24 09:37 | PCM.PYCHPN ---
Psychiatric Progress Note - Psychiatric Progress Note Patient seen today, length of contact: Pt evaluated, case discussed w/ team, chart reviewed Patient Chief Complaint: "My daughter's is doing something to me." Problems Identified/Issues Discussed: Patient continues to be paranoid towards her daughter and son-in-law. She has been compliant with Risperdal. No adverse effects to medications reported. She continues to have poor insight into her chronic memory deficits. Medication Change: Yes (Increase Risperdal) Medical Record Reviewed: Yes Consults ordered or reviewed: Medicine consult Mental Status Examination - Cognitive Function Orientation: Person, Time Memory: Impaired Concentration: Poor Association: Loose Fund of Knowledge: Poor Decription of patient's judgement and insights: Poor I/J - Mood Mood: Anxious - Affect Affect: Broad - Speech Speech: Appropriate - Formal Thought Process Formal Thought Process: Paranoia, Circumstantial Psychotic Thoughts and Behaviors: +Paranoia - Suicidal Ideation Suicidal Ideation: No - Homicidal Ideation Homicidal Ideation: No Goal/Treatment Plan - Goal/Treatment Plan Need for Continued Stay: Remain at risks for inpatient hospitalization, Severe functional impairment Progress Toward Problem(s) and Goals/Treatment Plan: Dementia with behavioral disturbance; Psychosis NOS -Individual and group therapy -Continue Aricept; patient currently refusing -Increase Risperdal -Medicine consult -Disposition planning -Psychoeducation -Case discussed w/ POA and patient's PMD Estimated Date of D/C: 02/28/18
[2018-02-24] MEDS: Risperidone M tab 1 MG PO SCH (16:54)
--- NOTE | 2018-02-24 22:33 | CP.PCM.PN ---
Subjective - Date & Time of Evaluation Date of Evaluation: 02/24/18 Time of Evaluation: 12:00 - Subjective Subjective: Seen and examined at the bedside. New complaint. Discussed with the social of all subacute rehab, and being arranged Long-term prison facility with a closed unit. As per the social work program coordinator, the daughters are aware of the plan. Objective - Vital Signs/Intake and Output Vital Signs (last 24 hours): Temp Pulse Resp BP Pulse Ox 98.2 F 102 H 18 118/67 98 02/24/18 15:41 02/24/18 15:41 02/24/18 15:41 02/24/18 15:41 02/17/18 02:07 - Medications Medications: Current Medications Acetaminophen (Tylenol 325mg Tab) 650 mg PO Q4 PRN PRN Reason: Pain, moderate (4-7) Last Admin: 02/17/18 03:12 Dose: 650 mg Al Hydrox/Mg Hydrox/Simethicone (Maalox Plus 30 Ml) 30 ml PO Q4 PRN PRN Reason: Dyspepsia Last Admin: 02/20/18 20:56 Dose: 30 ml Bismuth Subsalicylate (Pepto-Bismol) 524 mg PO Q4 PRN PRN Reason: Diarrhea Donepezil HCl (Aricept) 5 mg PO HS [facility] Last Admin: 02/24/18 06:15 Dose: Not Given Hydrocortisone (Cortizone 1% Cream) 1 applic TOP TID [facility] Last Admin: 02/24/18 16:53 Dose: Not Given Levothyroxine Sodium (Synthroid) 75 mcg PO DAILY@0630 [facility] Last Admin: 02/24/18 06:15 Dose: 75 mcg Magnesium Hydroxide (Milk Of Magnesia) 30 ml PO HS PRN PRN Reason: Constipation Risperidone (Risperdal M-Tab) 1 mg PO BID [facility] Last Admin: 02/24/18 16:54 Dose: 1 mg - Labs Labs: 02/22/18 07:30 02/22/18 07:30 Assessment and Plan (1) Dementia with behavioral disturbance Status: Acute (2) Hypothyroidism (acquired) Status: Acute (3) Psychosis Status: Acute - Assessment and Plan (Free Text) Plan: Continue current care For discharge to long-term facility soon as patient is continued by the psychiatrist.
[2018-02-25] MEDS: Levothyroxine 75 MCG TAB PO SCH (06:09)
[2018-02-25] MEDS: Risperidone M tab 1 MG PO SCH ×2 (08:12→17:09)
--- NOTE | 2018-02-25 11:09 | PCM.PYCHPN ---
Psychiatric Progress Note - Psychiatric Progress Note Patient seen today, length of contact: Pt evaluated, case discussed w/ team, chart reviewed Patient Chief Complaint: "My daughter's is doing something to me." Problems Identified/Issues Discussed: Patient continues to be paranoid towards her daughter and son-in-law. Family meeting was held with the patient, her daughter RODRICK Walker MD and activity therapy, in which the case was discussed with the family. Patient was informed that she has significant cognitive deficits and will need halfway placement. She continues to be paranoid and made paranoid accusations toward the daughter during the meeting. She has been compliant with Risperdal. No adverse effects to medications reported. She continues to have poor insight into her chronic memory deficits. Medication Change: Yes (Increase Risperdal) Medical Record Reviewed: Yes Consults ordered or reviewed: Medicine consult Mental Status Examination - Cognitive Function Orientation: Person, Time Memory: Impaired Concentration: Poor Association: Loose Fund of Knowledge: Poor Decription of patient's judgement and insights: Poor I/J - Mood Mood: Anxious - Affect Affect: Broad - Speech Speech: Appropriate - Formal Thought Process Formal Thought Process: Paranoia, Circumstantial Psychotic Thoughts and Behaviors: +Paranoia - Suicidal Ideation Suicidal Ideation: No - Homicidal Ideation Homicidal Ideation: No Goal/Treatment Plan - Goal/Treatment Plan Need for Continued Stay: Remain at risks for inpatient hospitalization, Severe functional impairment Progress Toward Problem(s) and Goals/Treatment Plan: Dementia with behavioral disturbance; Psychosis NOS -Individual and group therapy -Continue Aricept; patient currently refusing -Increase Risperdal -Medicine consult -Disposition planning- patient will need termination clerk placement -Psychoeducation -Case discussed w/ POA and patient's PMD Estimated Date of D/C: 02/28/18
--- NOTE | 2018-02-25 15:10 | PCM.BM ---
Treatment Plan Problems - Problems identified on initial assessmt Problem 2 Date Initiated: 02/18/18 Time Initiated: 10:49 Assessment reference: HP, NA Status: Active Delusions Date Initiated: 02/18/18 Time Initiated: 10:48 Assessment reference: HP, NA Status: Active Treatment assets and liabiliti Patient Assests: ADL independent, negotiates basic needs Patient Liabilities: live alone, relationship conflicts, medical problems, imparied memory - Milieu Protocol Maintain good personal hygiene: daily Encourage regular showers, daily Remind patient to perform daily oral care, daily Assist patient to perform ADL's Conduct patient checks and document Observation sheet: Q15 minutes Maintain personal safety: every shift Educate patient to report safety concerns to staff, every shift Monitor environment for contraband/sharps Medication safety: Monitor for expected outcome, potential side effects: every shift, Assess barriers to learning: every shift, Assess readiness for medication education: every shift Milieu Narrative: Dementia with behavioral disturbance; Psychosis NOS -Individual and group therapy -Continue Aricept; patient currently refusing -Increase Risperdal -Medicine consult -Disposition planning- patient will need prison placement -Psychoeducation -Case discussed w/ POA and patient's PMD Family Contact Family involvement: Family/SO is involved Family contact: Patient agrees to contact, Family has been contacted by patient, Telephone contact initiated by staff Family contact name: Denise Filiberto PALAFOX Family contacted how many times per week?: 4 Family contact comment: Digester spoke with pt's daughter and JAVY, Denise [phone], to gain collateral and discuss treatment and discharge. Denise reported that pt was brought to the ED after pt's other daughter came to visit her apartment and found it to be extremely hot and pt did not have any food in her refrigerator. Denise reported that pt will not speak to her or allow her into her apartment because the pt believes that Denise is poisoning her. Denise reported that pt was residing in [place] near her other daughter and would call Denise and tell her that the other daughter was trying to kill her or say that she attempted to hit her with a car. Pt also called the police in September with fears that someone was attempting to break into her apartment to poison her. Denise reported that the police found all of pt's belongings in boxes. Denise reported that pt has no prior psych history, but was diagnosed with Alzheimer's Disease on Oct 29, 2015 by Jeni Vanegas. Pt's two daughters do not feel that pt is safe to return home and are hoping to have pt placed in Long-term care. - Goals for Treatment Patient goals for treatment: Pt unable to formulate goals due to dementia. Patient's family/SO goals for treatment: Daughter would like pt placed in long- term care where gher dementia can be specially treated. Discharge/Continuing Care - Education Needs Education Needs: Family Medication, Family Diagnosis/Disease Process, Family Coping Skills, Family Aftercare Safety Plan, Patient Medication, Patient Diagnosis/Disease Process, Patient Coping Skills, Patient Aftercare Safety Plan - Discharge Discharge Criteria: Tolerates medication w/o severe side effects, Free of paranoid thoughts, Free of agitation, Reduction of target symptoms Discharge to:: Group Home Facility - Treatment Team Participation Patient/Family/SO Statement: Dementia with behavioral disturbance; Psychosis NOS -Individual and group therapy -Continue Aricept; patient currently refusing -Increase Risperdal -Medicine consult -Disposition planning- patient will need prison placement -Psychoeducation -Case discussed w/ POA and patient's PMD Discussed with Family/SO: Yes Was Patient/Family/SO present at Treatment Team Meeting: Yes Treatment Plan Review - Problem Problem 2 Time Initiated: 10:49 Delusions Time Initiated: 10:48 - Discharge / Continuing Care Discharge to:: Long Term Behavioral Health Services: Residential treatment Health Needs: Follow up care/test, Doctor appointments (Pt met with for treatment team review on 02/25/18 following family meeting where she was told she would be referred to a long term and wuld not have a choice due to Dementia, delusional thoughts and daughter having POA. Pt offered no questions or complaints at this time. ), Medications/Rx
--- NOTE | 2018-02-25 22:28 | CP.PCM.PN ---
Subjective - Date & Time of Evaluation Date of Evaluation: 02/25/18 Time of Evaluation: 12:05 - Subjective Subjective: No new complaint Objective - Vital Signs/Intake and Output Vital Signs (last 24 hours): Temp Pulse Resp BP Pulse Ox 97.8 F 98 H 18 110/71 98 02/25/18 16:14 02/25/18 16:14 02/25/18 16:14 02/25/18 16:14 02/17/18 02:07 - Medications Medications: Current Medications Acetaminophen (Tylenol 325mg Tab) 650 mg PO Q4 PRN PRN Reason: Pain, moderate (4-7) Last Admin: 02/17/18 03:12 Dose: 650 mg Al Hydrox/Mg Hydrox/Simethicone (Maalox Plus 30 Ml) 30 ml PO Q4 PRN PRN Reason: Dyspepsia Last Admin: 02/20/18 20:56 Dose: 30 ml Bismuth Subsalicylate (Pepto-Bismol) 524 mg PO Q4 PRN PRN Reason: Diarrhea Donepezil HCl (Aricept) 5 mg PO HS [facility] Last Admin: 02/25/18 21:02 Dose: Not Given Hydrocortisone (Cortizone 1% Cream) 1 applic TOP TID [facility] Last Admin: 02/25/18 17:08 Dose: Not Given Levothyroxine Sodium (Synthroid) 75 mcg PO DAILY@0630 [facility] Last Admin: 02/25/18 06:09 Dose: 75 mcg Magnesium Hydroxide (Milk Of Magnesia) 30 ml PO HS PRN PRN Reason: Constipation Risperidone (Risperdal M-Tab) 1 mg PO BID [facility] Last Admin: 02/25/18 17:09 Dose: 1 mg - Labs Labs: 02/22/18 07:30 02/22/18 07:30 Assessment and Plan (1) Dementia with behavioral disturbance Status: Acute (2) Hypothyroidism (acquired) Status: Acute (3) Psychosis Status: Acute - Assessment and Plan (Free Text) Plan: Continue current care
[2018-02-26] MEDS: Levothyroxine 75 MCG TAB PO SCH (06:16)
[2018-02-26] MEDS: Risperidone M tab 1 MG PO SCH ×2 (09:03→17:06)
--- NOTE | 2018-02-26 09:17 | PCM.PYCHPN ---
Psychiatric Progress Note - Psychiatric Progress Note Patient seen today, length of contact: Pt evaluated, case discussed w/ team, chart reviewed Patient Chief Complaint: "My daughter's is doing something to me." Problems Identified/Issues Discussed: Patient continues to be paranoid towards her daughter. Family meeting was held on 02/25/18, with the patient, her daughter RODRICK Walker MD and activity therapy, in which the case was discussed with the family. She has been compliant with Risperdal. No adverse effects to medications reported. She continues to have poor insight into her chronic memory deficits. Medication Change: No Medical Record Reviewed: Yes Consults ordered or reviewed: Medicine consult Mental Status Examination - Cognitive Function Orientation: Person, Time Memory: Impaired Concentration: Poor Association: Loose Fund of Knowledge: Poor Decription of patient's judgement and insights: Poor I/J - Mood Mood: Anxious - Affect Affect: Broad - Speech Speech: Appropriate - Formal Thought Process Formal Thought Process: Paranoia, Circumstantial Psychotic Thoughts and Behaviors: +Paranoia - Suicidal Ideation Suicidal Ideation: No - Homicidal Ideation Homicidal Ideation: No Goal/Treatment Plan - Goal/Treatment Plan Need for Continued Stay: Remain at risks for inpatient hospitalization, Severe functional impairment Progress Toward Problem(s) and Goals/Treatment Plan: Dementia with behavioral disturbance; Psychosis NOS -Individual and group therapy -Continue Aricept; patient currently refusing -Continue Risperdal -Medicine consult -Disposition planning- patient will need longterm placement -Psychoeducation -Case discussed w/ POA and patient's PMD Estimated Date of D/C: 03/01/18
--- NOTE | 2018-02-27 01:19 | CP.PCM.PN ---
Subjective - Date & Time of Evaluation Date of Evaluation: 02/26/18 Time of Evaluation: 07:15 - Subjective Subjective: Reviewed. No change. Objective - Vital Signs/Intake and Output Vital Signs (last 24 hours): Temp Pulse Resp BP Pulse Ox 97.0 F L 92 H 19 118/72 98 02/26/18 15:24 02/26/18 15:24 02/26/18 15:24 02/26/18 15:24 02/17/18 02:07 - Medications Medications: Current Medications Acetaminophen (Tylenol 325mg Tab) 650 mg PO Q4 PRN PRN Reason: Pain, moderate (4-7) Last Admin: 02/17/18 03:12 Dose: 650 mg Al Hydrox/Mg Hydrox/Simethicone (Maalox Plus 30 Ml) 30 ml PO Q4 PRN PRN Reason: Dyspepsia Last Admin: 02/20/18 20:56 Dose: 30 ml Bismuth Subsalicylate (Pepto-Bismol) 524 mg PO Q4 PRN PRN Reason: Diarrhea Donepezil HCl (Aricept) 5 mg PO HS [facility] Last Admin: 02/26/18 21:15 Dose: 5 mg Hydrocortisone (Cortizone 1% Cream) 1 applic TOP TID [facility] Last Admin: 02/26/18 17:07 Dose: 1 applic Levothyroxine Sodium (Synthroid) 75 mcg PO DAILY@0630 [facility] Last Admin: 02/26/18 06:16 Dose: 75 mcg Magnesium Hydroxide (Milk Of Magnesia) 30 ml PO HS PRN PRN Reason: Constipation Risperidone (Risperdal M-Tab) 1 mg PO BID [facility] Last Admin: 02/26/18 17:06 Dose: 1 mg - Labs Labs: 02/22/18 07:30 02/22/18 07:30 Assessment and Plan (1) Dementia with behavioral disturbance Status: Acute (2) Hypothyroidism (acquired) Status: Acute (3) Psychosis Status: Acute - Assessment and Plan (Free Text) Plan: Continue Current Care For LT NH placement
[2018-02-27] MEDS: Levothyroxine 75 MCG TAB PO SCH (06:20)
[2018-02-27 08:45] LABS: BASO % 0.7 % (0.0-2.0); EOS # 0.3 K/uL (0.0-0.7); EOS % 6.6 % (0.0-4.0); HEMOGLOBIN 13.1 g/dL (12.0-16.0); LYMPH # 1.2 K/uL (1.0-4.3); LYMPH % 26.6 % (20.0-40.0); MEAN CELL VOLUME 90.5 fl (81.0-99.0); MEAN CORPUSCULAR HEMOGLOBIN 31.7 pg (27.0-31.0); MEAN CORPUSCULAR HGB CONC 35.1 g/dL (33.0-37.0); MEAN PLATELET VOLUME 8.1 fl (7.2-11.7); MONO # 0.5 K/uL (0.0-0.8); MONO % 11.8 % (0.0-10.0); NEUT # 2.5 K/uL (1.8-7.0); NEUT % 54.3 % (50.0-75.0); NRBC % 0.1 % (0.0-0.0); RBC 4.13 Mil/uL (3.80-5.20); RED CELL DISTRIBUTION WIDTH 15.7 % (11.5-14.5); WHITE BLOOD COUNT 4.6 K/uL (4.8-10.8)
[2018-02-27] MEDS: Risperidone M tab 1 MG PO SCH ×2 (08:45→16:41)
--- NOTE | 2018-02-27 08:47 | PCM.PYCHPN ---
Psychiatric Progress Note - Psychiatric Progress Note Patient seen today, length of contact: Pt evaluated, case discussed w/ team, chart reviewed Patient Chief Complaint: Paranoia Problems Identified/Issues Discussed: Patient is less paranoid towards her daughter and was able to meet with her alone yesterday. Patient had previously refused to talk or meet with her daughter due to acute paranoia. She has been compliant with Risperdal. No adverse effects to medications reported. She continues to have poor insight into her chronic memory deficits. Medication Change: No Medical Record Reviewed: Yes Consults ordered or reviewed: Medicine consult Mental Status Examination - Cognitive Function Orientation: Person, Time Memory: Impaired Concentration: Poor Association: Loose Fund of Knowledge: Poor Decription of patient's judgement and insights: Poor I/J - Mood Mood: Anxious - Affect Affect: Broad - Speech Speech: Appropriate - Formal Thought Process Formal Thought Process: Paranoia, Circumstantial Psychotic Thoughts and Behaviors: +Paranoia - Suicidal Ideation Suicidal Ideation: No - Homicidal Ideation Homicidal Ideation: No Goal/Treatment Plan - Goal/Treatment Plan Need for Continued Stay: Remain at risks for inpatient hospitalization, Severe functional impairment Progress Toward Problem(s) and Goals/Treatment Plan: Dementia with behavioral disturbance; Psychosis NOS -Individual and group therapy -Continue Aricept; patient currently refusing -Continue Risperdal -Medicine consult -Disposition planning- patient will need correction placement -Psychoeducation -Case discussed w/ PODung and patient's PMD Estimated Date of D/C: 03/01/18
[2018-02-27 08:51] LABS: ALB/GLOB RATIO 1.2 (1.0-2.1); ALBUMIN 3.6 g/dL (3.5-5.0); ALT/SGPT 32 U/L (9-52); AST/SGOT 19 U/L (14-36); BLOOD UREA NITROGEN 20 mg/dl (7-17); GFR NON-AFRICAN AMERICAN > 60
--- NOTE | 2018-02-27 21:44 | CP.PCM.PN ---
Subjective - Date & Time of Evaluation Date of Evaluation: 02/27/18 Time of Evaluation: 18:55 Objective - Vital Signs/Intake and Output Vital Signs (last 24 hours): Temp Pulse Resp BP Pulse Ox 97.8 F 87 19 120/67 98 02/27/18 15:58 02/27/18 15:58 02/27/18 15:58 02/27/18 15:58 02/17/18 02:07 - Medications Medications: Current Medications Acetaminophen (Tylenol 325mg Tab) 650 mg PO Q4 PRN PRN Reason: Pain, moderate (4-7) Last Admin: 02/17/18 03:12 Dose: 650 mg Al Hydrox/Mg Hydrox/Simethicone (Maalox Plus 30 Ml) 30 ml PO Q4 PRN PRN Reason: Dyspepsia Last Admin: 02/20/18 20:56 Dose: 30 ml Bismuth Subsalicylate (Pepto-Bismol) 524 mg PO Q4 PRN PRN Reason: Diarrhea Donepezil HCl (Aricept) 5 mg PO HS [facility] Last Admin: 02/27/18 21:11 Dose: 5 mg Hydrocortisone (Cortizone 1% Cream) 1 applic TOP TID [facility] Last Admin: 02/27/18 16:41 Dose: Not Given Levothyroxine Sodium (Synthroid) 75 mcg PO DAILY@0630 [facility] Last Admin: 02/27/18 06:20 Dose: 75 mcg Magnesium Hydroxide (Milk Of Magnesia) 30 ml PO HS PRN PRN Reason: Constipation Risperidone (Risperdal M-Tab) 1 mg PO BID [facility] Last Admin: 02/27/18 16:41 Dose: 1 mg - Labs Labs: 02/27/18 07:10 02/27/18 07:10 Assessment and Plan (1) Dementia with behavioral disturbance Status: Acute (2) Hypothyroidism (acquired) Status: Acute (3) Psychosis Status: Acute
[2018-02-28] MEDS: Levothyroxine 75 MCG TAB PO SCH (06:13)
[2018-02-28] MEDS: Risperidone M tab 1 MG PO SCH ×2 (08:42→16:11)
--- NOTE | 2018-02-28 08:51 | PCM.PYCHPN ---
Psychiatric Progress Note - Psychiatric Progress Note Patient seen today, length of contact: Pt evaluated, case discussed w/ team, chart reviewed Patient Chief Complaint: Paranoia Problems Identified/Issues Discussed: Patient continues to have paranoid ideations towards her daughter and son-in-law, but is less paranoid and now able to engage in conversation with her daughter, who visited her several times over the weekend. She is also less pressured to talk about her paranoid ideations. She has been compliant with Risperdal. No adverse effects to medications reported. She continues to have poor insight into her chronic memory deficits. Medication Change: No Medical Record Reviewed: Yes Consults ordered or reviewed: Medicine consult Mental Status Examination - Cognitive Function Orientation: Person, Time Memory: Impaired Concentration: Poor Association: Loose Fund of Knowledge: Poor Decription of patient's judgement and insights: Poor I/J - Mood Mood: Anxious - Affect Affect: Broad - Speech Speech: Appropriate - Formal Thought Process Formal Thought Process: Paranoia, Circumstantial Psychotic Thoughts and Behaviors: +Paranoia - Suicidal Ideation Suicidal Ideation: No - Homicidal Ideation Homicidal Ideation: No Goal/Treatment Plan - Goal/Treatment Plan Need for Continued Stay: Remain at risks for inpatient hospitalization, Severe functional impairment Progress Toward Problem(s) and Goals/Treatment Plan: Dementia with behavioral disturbance; Psychosis NOS -Individual and group therapy -Continue Aricept -Continue Risperdal -Medicine consult -Disposition planning- patient will need residential placement -Psychoeducation -Case discussed w/ POA and patient's PMD Estimated Date of D/C: 03/02/18
--- NOTE | 2018-02-28 22:49 | CP.PCM.PN ---
Subjective - Date & Time of Evaluation Date of Evaluation: 02/28/18 Time of Evaluation: 16:05 Objective - Vital Signs/Intake and Output Vital Signs (last 24 hours): Temp Pulse Resp BP Pulse Ox 98.4 F 96 H 18 128/69 98 02/28/18 16:04 02/28/18 16:04 02/28/18 16:04 02/28/18 16:04 02/17/18 02:07 - Medications Medications: Current Medications Acetaminophen (Tylenol 325mg Tab) 650 mg PO Q4 PRN PRN Reason: Pain, moderate (4-7) Last Admin: 02/17/18 03:12 Dose: 650 mg Al Hydrox/Mg Hydrox/Simethicone (Maalox Plus 30 Ml) 30 ml PO Q4 PRN PRN Reason: Dyspepsia Last Admin: 02/20/18 20:56 Dose: 30 ml Bismuth Subsalicylate (Pepto-Bismol) 524 mg PO Q4 PRN PRN Reason: Diarrhea Donepezil HCl (Aricept) 5 mg PO HS [facility]EDS AT [facility] Last Admin: 02/28/18 21:15 Dose: 5 mg Hydrocortisone (Cortizone 1% Cream) 1 applic TOP TID [facility] BEDS AT THE [facility] Last Admin: 02/28/18 16:11 Dose: Not Given Levothyroxine Sodium (Synthroid) 75 mcg PO DAILY@0630 [facility]S [facility] Last Admin: 02/28/18 06:13 Dose: 75 mcg Magnesium Hydroxide (Milk Of Magnesia) 30 ml PO HS PRN PRN Reason: Constipation Risperidone (Risperdal M-Tab) 1 mg PO BID [facility] Last Admin: 02/28/18 16:11 Dose: 1 mg - Labs Labs: 02/27/18 07:10 02/27/18 07:10 Assessment and Plan (1) Dementia with behavioral disturbance Status: Acute (2) Hypothyroidism (acquired) Status: Acute (3) Psychosis Status: Acute
[2018-03-01] MEDS: Levothyroxine 75 MCG TAB PO SCH (05:53)
[2018-03-01] MEDS: Risperidone M tab 1 MG PO SCH ×2 (08:25→16:18)
--- NOTE | 2018-03-01 09:35 | PCM.PYCHPN ---
Psychiatric Progress Note - Psychiatric Progress Note Patient seen today, length of contact: Pt evaluated, case discussed w/ team, chart reviewed Patient Chief Complaint: Inability to care for self Problems Identified/Issues Discussed: Patient reports her mood is stable. She denies acute depression/anxiety. Her paranoia has improved and she is now able to meet with her daughter and spend time with her. She has been compliant with Risperdal. No adverse effects to medications reported. She continues to have poor insight into her chronic memory deficits. Medication Change: No Medical Record Reviewed: Yes Consults ordered or reviewed: Medicine consult Mental Status Examination - Cognitive Function Orientation: Person, Time Memory: Impaired Concentration: Poor Association: Loose Fund of Knowledge: Poor Decription of patient's judgement and insights: Poor I/J - Mood Mood: Neutral - Affect Affect: Broad - Speech Speech: Appropriate - Formal Thought Process Formal Thought Process: Circumstantial Psychotic Thoughts and Behaviors: +Mild chronic paranoia - Suicidal Ideation Suicidal Ideation: No - Homicidal Ideation Homicidal Ideation: No Goal/Treatment Plan - Goal/Treatment Plan Need for Continued Stay: Severe functional impairment Progress Toward Problem(s) and Goals/Treatment Plan: Dementia with behavioral disturbance; Psychosis NOS; patient is psychiatrically stable for referral for medical terminologist placement -Individual and group therapy -Continue Aricept -Continue Risperdal -Medicine consult -Psychoeducation -Case discussed w/ POA and patient's PMD Estimated Date of D/C: 03/04/18
[2018-03-02] MEDS: Levothyroxine 75 MCG TAB PO SCH (05:29)
[2018-03-02] MEDS: Risperidone M tab 1 MG PO SCH ×2 (08:28→17:25)
--- NOTE | 2018-03-02 09:46 | PCM.PYCHPN ---
Psychiatric Progress Note - Psychiatric Progress Note Patient seen today, length of contact: Pt evaluated, case discussed w/ team, chart reviewed Patient Chief Complaint: Inability to care for self Problems Identified/Issues Discussed: Patient reports her mood is stable. She denies acute depression/anxiety. She is less paranoid towards her family. She has been compliant with Risperdal. No adverse effects to medications reported. She understands that she will need truck terminal manager placement. Medication Change: No Medical Record Reviewed: Yes Consults ordered or reviewed: Medicine consult Mental Status Examination - Cognitive Function Orientation: Person, Time Memory: Impaired Concentration: Poor Association: Loose Fund of Knowledge: Poor Decription of patient's judgement and insights: Poor I/J - Mood Mood: Neutral - Affect Affect: Broad - Speech Speech: Appropriate - Formal Thought Process Formal Thought Process: Circumstantial Psychotic Thoughts and Behaviors: +Mild chronic paranoia - Suicidal Ideation Suicidal Ideation: No - Homicidal Ideation Homicidal Ideation: No Goal/Treatment Plan - Goal/Treatment Plan Need for Continued Stay: Severe functional impairment Progress Toward Problem(s) and Goals/Treatment Plan: Alzheimer's Dementia without behavioral disturbance; Psychosis NOS; patient is psychiatrically stable for referral for truck terminal manager placement -Individual and group therapy -Continue Aricept -Continue Risperdal -Medicine consult -Psychoeducation -Case discussed w/ POA and patient's PMD Estimated Date of D/C: 03/04/18
--- NOTE | 2018-03-02 22:26 | CP.PCM.PN ---
Subjective - Date & Time of Evaluation Date of Evaluation: 03/01/18 Time of Evaluation: 07:50 Objective - Vital Signs/Intake and Output Vital Signs (last 24 hours): Temp Pulse Resp BP Pulse Ox 98.8 F 87 20 108/62 98 03/02/18 15:56 03/02/18 15:56 03/02/18 15:56 03/02/18 15:56 02/17/18 02:07 - Medications Medications: Current Medications Acetaminophen (Tylenol 325mg Tab) 650 mg PO Q4 PRN PRN Reason: Pain, moderate (4-7) Last Admin: 02/17/18 03:12 Dose: 650 mg Al Hydrox/Mg Hydrox/Simethicone (Maalox Plus 30 Ml) 30 ml PO Q4 PRN PRN Reason: Dyspepsia Last Admin: 02/20/18 20:56 Dose: 30 ml Bismuth Subsalicylate (Pepto-Bismol) 524 mg PO Q4 PRN PRN Reason: Diarrhea Donepezil HCl (Aricept) 5 mg PO HS [facility] Last Admin: 03/02/18 21:08 Dose: 5 mg Hydrocortisone (Cortizone 1% Cream) 1 applic TOP TID [facility] Last Admin: 03/02/18 17:15 Dose: Not Given Levothyroxine Sodium (Synthroid) 75 mcg PO DAILY@0630 [facility] Last Admin: 03/02/18 05:29 Dose: 75 mcg Magnesium Hydroxide (Milk Of Magnesia) 30 ml PO HS PRN PRN Reason: Constipation Oxymetazoline HCl (Nasal Decongestant 15 Ml) 1 spr NS Q12 PRN PRN Reason: Nasal congestion Last Admin: 03/02/18 21:09 Dose: 1 spr Risperidone (Risperdal M-Tab) 1 mg PO BID [facility] Last Admin: 03/02/18 17:25 Dose: 1 mg - Labs Labs: 02/27/18 07:10 02/27/18 07:10 Assessment and Plan (1) Dementia with behavioral disturbance Status: Acute (2) Hypothyroidism (acquired) Status: Acute (3) Psychosis Status: Acute
--- NOTE | 2018-03-02 22:27 | CP.PCM.PN ---
Subjective - Date & Time of Evaluation Date of Evaluation: 03/02/18 Time of Evaluation: 12:55 Objective - Vital Signs/Intake and Output Vital Signs (last 24 hours): Temp Pulse Resp BP Pulse Ox 98.8 F 87 20 108/62 98 03/02/18 15:56 03/02/18 15:56 03/02/18 15:56 03/02/18 15:56 02/17/18 02:07 - Medications Medications: Current Medications Acetaminophen (Tylenol 325mg Tab) 650 mg PO Q4 PRN PRN Reason: Pain, moderate (4-7) Last Admin: 02/17/18 03:12 Dose: 650 mg Al Hydrox/Mg Hydrox/Simethicone (Maalox Plus 30 Ml) 30 ml PO Q4 PRN PRN Reason: Dyspepsia Last Admin: 02/20/18 20:56 Dose: 30 ml Bismuth Subsalicylate (Pepto-Bismol) 524 mg PO Q4 PRN PRN Reason: Diarrhea Donepezil HCl (Aricept) 5 mg PO HS [facility] Last Admin: 03/02/18 21:08 Dose: 5 mg Hydrocortisone (Cortizone 1% Cream) 1 applic TOP TID [facility] Last Admin: 03/02/18 17:15 Dose: Not Given Levothyroxine Sodium (Synthroid) 75 mcg PO DAILY@0630 [facility] Last Admin: 03/02/18 05:29 Dose: 75 mcg Magnesium Hydroxide (Milk Of Magnesia) 30 ml PO HS PRN PRN Reason: Constipation Oxymetazoline HCl (Nasal Decongestant 15 Ml) 1 spr NS Q12 PRN PRN Reason: Nasal congestion Last Admin: 03/02/18 21:09 Dose: 1 spr Risperidone (Risperdal M-Tab) 1 mg PO BID [facility] Last Admin: 03/02/18 17:25 Dose: 1 mg - Labs Labs: 02/27/18 07:10 02/27/18 07:10 Assessment and Plan (1) Dementia with behavioral disturbance Status: Acute (2) Hypothyroidism (acquired) Status: Acute (3) Psychosis Status: Acute
[2018-03-03] MEDS: Levothyroxine 75 MCG TAB PO SCH (08:20)
[2018-03-03] MEDS: Risperidone M tab 1 MG PO SCH ×2 (08:20→17:10)
--- NOTE | 2018-03-03 08:20 | PCM.PYCHPN ---
Psychiatric Progress Note - Psychiatric Progress Note Patient seen today, length of contact: Pt evaluated, case discussed w/ team, chart reviewed Patient Chief Complaint: Inability to care for self Problems Identified/Issues Discussed: No new events. No behavioral issues. Patient reports her mood is stable. She denies acute depression/anxiety. She is less paranoid towards her family. She has been compliant with Risperdal. No adverse effects to medications reported. She understands that she will need snf placement. Medication Change: No Medical Record Reviewed: Yes Consults ordered or reviewed: Medicine consult Mental Status Examination - Cognitive Function Orientation: Person, Time Memory: Impaired Concentration: Poor Association: Loose Fund of Knowledge: Poor Decription of patient's judgement and insights: Poor I/J - Mood Mood: Neutral - Affect Affect: Broad - Speech Speech: Appropriate - Formal Thought Process Formal Thought Process: Circumstantial Psychotic Thoughts and Behaviors: +Mild chronic paranoia - Suicidal Ideation Suicidal Ideation: No - Homicidal Ideation Homicidal Ideation: No Goal/Treatment Plan - Goal/Treatment Plan Need for Continued Stay: Severe functional impairment Progress Toward Problem(s) and Goals/Treatment Plan: Alzheimer's Dementia without behavioral disturbance; Psychosis NOS; patient is psychiatrically stable for referral for intermodal truck driver placement -Individual and group therapy -Continue Aricept -Continue Risperdal -Medicine consult -Psychoeducation -Case discussed w/ POA and patient's PMD Estimated Date of D/C: 03/04/18
[2018-03-04] MEDS: Levothyroxine 75 MCG TAB PO SCH (06:08)
[2018-03-04] MEDS: Risperidone M tab 1 MG PO SCH ×2 (08:32→16:22)
--- NOTE | 2018-03-04 10:20 | CP.PCM.PN ---
Subjective - Date & Time of Evaluation Date of Evaluation: 03/03/18 Objective - Vital Signs/Intake and Output Vital Signs (last 24 hours): Temp Pulse Resp BP Pulse Ox 97.9 F 76 18 96/64 L 98 03/04/18 06:00 03/04/18 06:00 03/04/18 06:00 03/04/18 06:00 02/17/18 02:07 - Medications Medications: Current Medications Acetaminophen (Tylenol 325mg Tab) 650 mg PO Q4 PRN PRN Reason: Pain, moderate (4-7) Last Admin: 02/17/18 03:12 Dose: 650 mg Al Hydrox/Mg Hydrox/Simethicone (Maalox Plus 30 Ml) 30 ml PO Q4 PRN PRN Reason: Dyspepsia Last Admin: 02/20/18 20:56 Dose: 30 ml Bismuth Subsalicylate (Pepto-Bismol) 524 mg PO Q4 PRN PRN Reason: Diarrhea Donepezil HCl (Aricept) 5 mg PO HS [facility] Last Admin: 03/03/18 21:06 Dose: 5 mg Hydrocortisone (Cortizone 1% Cream) 1 applic TOP TID [facility] Last Admin: 03/04/18 08:32 Dose: Not Given Levothyroxine Sodium (Synthroid) 75 mcg PO DAILY@0630 [facility] Last Admin: 03/04/18 06:08 Dose: 75 mcg Magnesium Hydroxide (Milk Of Magnesia) 30 ml PO HS PRN PRN Reason: Constipation Oxymetazoline HCl (Nasal Decongestant 15 Ml) 1 spr NS Q12 PRN PRN Reason: Nasal congestion Last Admin: 03/03/18 21:07 Dose: 1 spr Risperidone (Risperdal M-Tab) 1 mg PO BID [facility] Last Admin: 03/04/18 08:32 Dose: 1 mg - Labs Labs: 02/27/18 07:10 02/27/18 07:10 Assessment and Plan (1) Dementia with behavioral disturbance Status: Acute (2) Hypothyroidism (acquired) Status: Acute (3) Psychosis Status: Acute
--- NOTE | 2018-03-04 10:48 | PCM.PYCHPN ---
Psychiatric Progress Note - Psychiatric Progress Note Patient seen today, length of contact: Pt evaluated, case discussed w/ team, chart reviewed Patient Chief Complaint: Inability to care for self Problems Identified/Issues Discussed: No new events overnight. No behavioral issues. Patient reports her mood is stable. She denies acute depression/anxiety. She is less paranoid towards her family. She has been compliant with Risperdal. No adverse effects to medic ations reported. She understands that she will need technician terminal and repeater placement. Medication Change: No Medical Record Reviewed: Yes Consults ordered or reviewed: Medicine consult Mental Status Examination - Cognitive Function Orientation: Person, Time Memory: Impaired Concentration: Poor Association: Loose Fund of Knowledge: Poor Decription of patient's judgement and insights: Poor I/J - Mood Mood: Neutral - Affect Affect: Broad - Speech Speech: Appropriate - Formal Thought Process Formal Thought Process: Circumstantial Psychotic Thoughts and Behaviors: +Mild chronic paranoia - Suicidal Ideation Suicidal Ideation: No - Homicidal Ideation Homicidal Ideation: No Goal/Treatment Plan - Goal/Treatment Plan Need for Continued Stay: Severe functional impairment Progress Toward Problem(s) and Goals/Treatment Plan: Alzheimer's Dementia without behavioral disturbance; Psychosis NOS; patient is psychiatrically stable for referral for technician terminal and repeater placement -Individual and group therapy -Continue Aricept -Continue Risperdal -Medicine consult -Psychoeducation -Case discussed w/ POA and patient's PMD Estimated Date of D/C: 03/09/18
[2018-03-04] MEDS ORDERED: Hydrocortisone-Pramoxine 1%-1% Foam(10 gm) TOP SCH (18:15)
--- NOTE | 2018-03-04 23:03 | CP.PCM.PN ---
Subjective - Date & Time of Evaluation Date of Evaluation: 03/04/18 Objective - Vital Signs/Intake and Output Vital Signs (last 24 hours): Temp Pulse Resp BP Pulse Ox 98.2 F 93 H 20 139/78 98 03/04/18 15:45 03/04/18 15:45 03/04/18 15:45 03/04/18 15:45 02/17/18 02:07 - Medications Medications: Current Medications Acetaminophen (Tylenol 325mg Tab) 650 mg PO Q4 PRN PRN Reason: Pain, moderate (4-7) Last Admin: 02/17/18 03:12 Dose: 650 mg Al Hydrox/Mg Hydrox/Simethicone (Maalox Plus 30 Ml) 30 ml PO Q4 PRN PRN Reason: Dyspepsia Last Admin: 02/20/18 20:56 Dose: 30 ml Bismuth Subsalicylate (Pepto-Bismol) 524 mg PO Q4 PRN PRN Reason: Diarrhea Donepezil HCl (Aricept) 5 mg PO HS [facility] Last Admin: 03/04/18 21:10 Dose: 5 mg Hamamelis (Tucks) 1 pad TP BID [facility] Last Admin: 03/04/18 21:10 Dose: 1 pad Levothyroxine Sodium (Synthroid) 75 mcg PO DAILY@0630 [facility] Last Admin: 03/04/18 06:08 Dose: 75 mcg Magnesium Hydroxide (Milk Of Magnesia) 30 ml PO HS PRN PRN Reason: Constipation Oxymetazoline HCl (Nasal Decongestant 15 Ml) 1 spr NS Q12 PRN PRN Reason: Nasal congestion Last Admin: 03/04/18 21:15 Dose: 1 spr Risperidone (Risperdal M-Tab) 1 mg PO BID [facility] Last Admin: 03/04/18 16:22 Dose: 1 mg - Labs Labs: 02/27/18 07:10 02/27/18 07:10 Assessment and Plan (1) Dementia with behavioral disturbance Status: Acute (2) Hypothyroidism (acquired) Status: Acute (3) Psychosis Status: Acute
[2018-03-05] MEDS: Levothyroxine 75 MCG TAB PO SCH (05:49)
[2018-03-05] MEDS: Risperidone M tab 1 MG PO SCH ×2 (09:17→16:50)
--- NOTE | 2018-03-05 16:33 | PCM.PYCHPN ---
Psychiatric Progress Note - Psychiatric Progress Note Patient seen today, length of contact: Pt evaluated, case discussed w/ team, chart reviewed Patient Chief Complaint: pt has been less paranoid and less anxious and less depressed but remains with limited insight . Medication Change: No Medical Record Reviewed: Yes Mental Status Examination - Cognitive Function Orientation: Person, Time Memory: Impaired Concentration: Poor Association: Loose Fund of Knowledge: Poor - Mood Mood: Neutral - Affect Affect: Broad - Speech Speech: Appropriate - Formal Thought Process Formal Thought Process: Circumstantial - Suicidal Ideation Suicidal Ideation: No - Homicidal Ideation Homicidal Ideation: No Goal/Treatment Plan - Goal/Treatment Plan Need for Continued Stay: Severe functional impairment Progress Toward Problem(s) and Goals/Treatment Plan: will continue to stabilize with risperdal. pt is waiting for placement. Estimated Date of D/C: 03/09/18
--- NOTE | 2018-03-06 00:15 | CP.PCM.PN ---
Subjective - Date & Time of Evaluation Date of Evaluation: 03/05/18 Objective - Vital Signs/Intake and Output Vital Signs (last 24 hours): Temp Pulse Resp BP Pulse Ox 97.5 F L 84 18 110/66 98 03/05/18 15:49 03/05/18 15:49 03/05/18 15:49 03/05/18 15:49 02/17/18 02:07 - Medications Medications: Current Medications Acetaminophen (Tylenol 325mg Tab) 650 mg PO Q4 PRN PRN Reason: Pain, moderate (4-7) Last Admin: 02/17/18 03:12 Dose: 650 mg Al Hydrox/Mg Hydrox/Simethicone (Maalox Plus 30 Ml) 30 ml PO Q4 PRN PRN Reason: Dyspepsia Last Admin: 02/20/18 20:56 Dose: 30 ml Bismuth Subsalicylate (Pepto-Bismol) 524 mg PO Q4 PRN PRN Reason: Diarrhea Donepezil HCl (Aricept) 5 mg PO HS [facility] Last Admin: 03/05/18 21:09 Dose: 5 mg Hamamelis (Tucks) 1 pad TP BID [facility] Last Admin: 03/05/18 17:06 Dose: 1 pad Levothyroxine Sodium (Synthroid) 75 mcg PO DAILY@0630 [facility] Last Admin: 03/05/18 05:49 Dose: 75 mcg Magnesium Hydroxide (Milk Of Magnesia) 30 ml PO HS PRN PRN Reason: Constipation Oxymetazoline HCl (Nasal Decongestant 15 Ml) 1 spr NS Q12 PRN PRN Reason: Nasal congestion Last Admin: 03/05/18 10:16 Dose: 1 spr Risperidone (Risperdal M-Tab) 1 mg PO BID [facility] Last Admin: 03/05/18 16:50 Dose: 1 mg - Labs Labs: 02/27/18 07:10 02/27/18 07:10 Assessment and Plan (1) Dementia with behavioral disturbance Status: Acute (2) Hypothyroidism (acquired) Status: Acute (3) Psychosis Status: Acute
[2018-03-06] MEDS: Levothyroxine 75 MCG TAB PO SCH (05:35)
[2018-03-06] MEDS: Risperidone M tab 1 MG PO SCH ×2 (08:44→16:19)
--- NOTE | 2018-03-06 13:14 | PCM.PYCHPN ---
Psychiatric Progress Note - Psychiatric Progress Note Patient seen today, length of contact: Pt evaluated, case discussed w/ team, chart reviewed Patient Chief Complaint: pt has been still internally preoccupied .pt has been less paranoid and less anxious and less depressed but remains with limited insight . Medication Change: No Medical Record Reviewed: Yes Mental Status Examination - Cognitive Function Orientation: Person, Time Memory: Impaired Concentration: Poor Association: Loose Fund of Knowledge: Poor - Mood Mood: Neutral - Affect Affect: Broad - Speech Speech: Appropriate - Formal Thought Process Formal Thought Process: Circumstantial - Suicidal Ideation Suicidal Ideation: No - Homicidal Ideation Homicidal Ideation: No Goal/Treatment Plan - Goal/Treatment Plan Need for Continued Stay: Severe functional impairment Progress Toward Problem(s) and Goals/Treatment Plan: will continue to stabilize with risperdal. pt is waiting for placement. Estimated Date of D/C: 03/09/18
[2018-03-07] MEDS: Levothyroxine 75 MCG TAB PO SCH (05:58)
--- NOTE | 2018-03-07 07:52 | PCM.PYCHPN ---
Psychiatric Progress Note - Psychiatric Progress Note Patient seen today, length of contact: Pt evaluated, case discussed w/ team, chart reviewed Patient Chief Complaint: Inability to care for self Problems Identified/Issues Discussed: No new events over the weekend. No behavioral issues. Patient reports her mood is stable. She denies acute depression/anxiety. She has been compliant with Risperdal. No adverse effects to medications reported. She understands that she will need cogeneration technician placement. Medication Change: No Medical Record Reviewed: Yes Consults ordered or reviewed: Medicine consult Mental Status Examination - Cognitive Function Orientation: Person, Place, Time Memory: Impaired Concentration: Poor Association: Loose Fund of Knowledge: Poor Decription of patient's judgement and insights: Chronic limitations in I/J due to dementia - Mood Mood: Neutral - Affect Affect: Broad - Speech Speech: Appropriate - Formal Thought Process Formal Thought Process: Circumstantial Psychotic Thoughts and Behaviors: Denies AH/VH - Suicidal Ideation Suicidal Ideation: No - Homicidal Ideation Homicidal Ideation: No Goal/Treatment Plan - Goal/Treatment Plan Need for Continued Stay: Severe functional impairment Progress Toward Problem(s) and Goals/Treatment Plan: Alzheimer's Dementia without behavioral disturbance; Psychosis NOS; patient is psychiatrically stable for referral for cogeneration technician placement -Individual and group therapy -Continue Aricept -Continue Risperdal -Medicine consult -Psychoeducation -Case discussed w/ POA and patient's PMD Estimated Date of D/C: 03/09/18
[2018-03-07] MEDS: Risperidone M tab 1 MG PO SCH ×2 (08:31→16:05)
--- NOTE | 2018-03-08 01:15 | CP.PCM.PN ---
Subjective - Date & Time of Evaluation Date of Evaluation: 03/07/18 Time of Evaluation: 14:00 Objective - Vital Signs/Intake and Output Vital Signs (last 24 hours): Temp Pulse Resp BP Pulse Ox 98.6 F 82 18 111/62 98 03/07/18 16:05 03/07/18 16:05 03/07/18 16:05 03/07/18 16:05 02/17/18 02:07 - Medications Medications: Current Medications Acetaminophen (Tylenol 325mg Tab) 650 mg PO Q4 PRN PRN Reason: Pain, moderate (4-7) Last Admin: 02/17/18 03:12 Dose: 650 mg Al Hydrox/Mg Hydrox/Simethicone (Maalox Plus 30 Ml) 30 ml PO Q4 PRN PRN Reason: Dyspepsia Last Admin: 02/20/18 20:56 Dose: 30 ml Bismuth Subsalicylate (Pepto-Bismol) 524 mg PO Q4 PRN PRN Reason: Diarrhea Donepezil HCl (Aricept) 5 mg PO HS [facility] Last Admin: 03/07/18 21:08 Dose: 5 mg Hamamelis (Tucks) 1 pad TP BID [facility] Last Admin: 03/07/18 16:06 Dose: 1 pad Levothyroxine Sodium (Synthroid) 75 mcg PO DAILY@0630 [facility] Last Admin: 03/07/18 05:58 Dose: 75 mcg Magnesium Hydroxide (Milk Of Magnesia) 30 ml PO HS PRN PRN Reason: Constipation Oxymetazoline HCl (Nasal Decongestant 15 Ml) 1 spr NS Q12 PRN PRN Reason: Nasal congestion Last Admin: 03/07/18 21:09 Dose: 1 spr Risperidone (Risperdal M-Tab) 1 mg PO BID [facility] Last Admin: 03/07/18 16:05 Dose: 1 mg - Labs Labs: 02/27/18 07:10 02/27/18 07:10 Assessment and Plan (1) Dementia with behavioral disturbance Status: Acute (2) Hypothyroidism (acquired) Status: Acute (3) Psychosis Status: Acute
[2018-03-08] MEDS: Levothyroxine 75 MCG TAB PO SCH (05:54)
[2018-03-08] MEDS: Risperidone M tab 1 MG PO SCH ×2 (08:06→17:56)
--- NOTE | 2018-03-08 08:09 | PCM.BM ---
Treatment Plan Problems - Problems identified on initial assessmt Problem 2 Date Initiated: 02/18/18 Time Initiated: 10:49 Assessment reference: HP, NA Status: Active Delusions Date Initiated: 02/18/18 Time Initiated: 10:48 Assessment reference: HP, NA Status: Active Treatment assets and liabiliti Patient Assests: ADL independent, negotiates basic needs Patient Liabilities: live alone, relationship conflicts, medical problems, imparied memory - Milieu Protocol Maintain good personal hygiene: daily Encourage regular showers, daily Remind patient to perform daily oral care, daily Assist patient to perform ADL's Conduct patient checks and document Observation sheet: Q15 minutes Maintain personal safety: every shift Educate patient to report safety concerns to staff, every shift Monitor environment for contraband/sharps Medication safety: Monitor for expected outcome, potential side effects: every shift, Assess barriers to learning: every shift, Assess readiness for medication education: every shift Milieu Narrative: Alzheimer's Dementia without behavioral disturbance; Psychosis NOS; patient is psychiatrically stable for referral for assisted placement -Individual and group therapy -Continue Aricept -Continue Risperdal -Medicine consult -Psychoeducation -Case discussed w/ POA and patient's PMD Family Contact Family involvement: Family/SO is involved Family contact: Patient agrees to contact, Family has been contacted by patient, Telephone contact initiated by staff Family contact name: Denise Filiberto PALAFOX Family contacted how many times per week?: 4 Family contact comment: [employer]er[employer] Supervisor spoke with pt's daughter and JAVY, Denise [phone], to gain collateral and discuss treatment and discharge. Denise reported that pt was brought to the ED after pt's other daughter came to visit her apartment and found it to be extremely hot and pt did not have any food in her refrigerator. Denise reported that pt will not speak to her or allow her into her apartment because the pt believes that Denise is poisoning her. Denise reported that pt was residing in [place] near her other daughter and would call Denise and tell her that the other daughter was trying to kill her or say that she attempted to hit her with a car. Pt also called the police in September with fears that someone was attempting to break into her apartment to poison her. Denise reported that the police found all of pt's belongings in boxes. Denise reported that pt has no prior psych history, but was diagnosed with Alzheimer's Disease on Oct 29, 2015 by Jeni Vanegas. Pt's two daughters do not feel that pt is safe to return home and are hoping to have pt placed in Long-term care. - Goals for Treatment Patient goals for treatment: Pt unable to formulate goals due to dementia. Patient's family/SO goals for treatment: Daughter would like pt placed in long- term care where gher dementia can be specially treated. Discharge/Continuing Care - Education Needs Education Needs: Family Medication, Family Diagnosis/Disease Process, Family Coping Skills, Family Aftercare Safety Plan, Patient Medication, Patient Diagnosis/Disease Process, Patient Coping Skills, Patient Aftercare Safety Plan - Discharge Discharge Criteria: Tolerates medication w/o severe side effects, Free of paranoid thoughts, Free of agitation, Reduction of target symptoms Discharge to:: [facility] - Treatment Team Participation Patient/Family/SO Statement: Alzheimer's Dementia without behavioral disturbance; Psychosis NOS; patient is psychiatrically stable for referral for long term care phlebotomist placement -Individual and group therapy -Continue Aricept -Continue Risperdal -Medicine consult -Psychoeducation -Case discussed w/ POA and patient's PMD Discussed with Family/SO: Yes Was Patient/Family/SO present at Treatment Team Meeting: Yes Treatment Plan Review - Problem Problem 2 Time Initiated: 10:49 Delusions Time Initiated: 10:48 - Discharge / Continuing Care Discharge to:: [facility]: Residential treatment Health Needs: Follow up care/test, Doctor appointments, Medications/Rx (Pt was seen in treatment team for a review on 03/04/18. It was explained that pt was awaiting insurance approval for LTP and then she would be transferred to a residential. )
--- NOTE | 2018-03-08 08:16 | PCM.PYCHPN ---
Psychiatric Progress Note - Psychiatric Progress Note Patient seen today, length of contact: Pt evaluated, case discussed w/ team, chart reviewed Patient Chief Complaint: Inability to care for self Problems Identified/Issues Discussed: No new events. No behavioral issues. Patient reports her mood is stable. She denies acute depression/anxiety. She has been compliant with Risperdal. No adverse effects to medications reported. She understands that she will need custodial placement. Medication Change: No Medical Record Reviewed: Yes Consults ordered or reviewed: Medicine consult Mental Status Examination - Cognitive Function Orientation: Person, Place, Time Memory: Impaired Concentration: Poor Association: Loose Fund of Knowledge: Poor Decription of patient's judgement and insights: Chronic limitations in I/J due to dementia - Mood Mood: Neutral - Affect Affect: Broad - Speech Speech: Appropriate - Formal Thought Process Formal Thought Process: Circumstantial Psychotic Thoughts and Behaviors: Denies AH/VH - Suicidal Ideation Suicidal Ideation: No - Homicidal Ideation Homicidal Ideation: No Goal/Treatment Plan - Goal/Treatment Plan Need for Continued Stay: Severe functional impairment Progress Toward Problem(s) and Goals/Treatment Plan: Alzheimer's Dementia without behavioral disturbance; Psychosis NOS; patient is psychiatrically stable for referral for custodial placement -Individual and group therapy -Continue Aricept -Continue Risperdal -Medicine consult -Psychoeducation -Case discussed w/ POA and patient's PMD -Disposition planning- referral for rodent exterminator placement Estimated Date of D/C: 03/11/18
--- NOTE | 2018-03-08 17:37 | CP.PCM.PN ---
Subjective - Date & Time of Evaluation Date of Evaluation: 03/08/18 Time of Evaluation: 16:20 Objective - Vital Signs/Intake and Output Vital Signs (last 24 hours): Temp Pulse Resp BP Pulse Ox 97.9 F 98 H 20 129/69 98 03/08/18 15:44 03/08/18 15:44 03/08/18 15:44 03/08/18 15:44 02/17/18 02:07 - Medications Medications: Current Medications Acetaminophen (Tylenol 325mg Tab) 650 mg PO Q4 PRN PRN Reason: Pain, moderate (4-7) Last Admin: 02/17/18 03:12 Dose: 650 mg Al Hydrox/Mg Hydrox/Simethicone (Maalox Plus 30 Ml) 30 ml PO Q4 PRN PRN Reason: Dyspepsia Last Admin: 02/20/18 20:56 Dose: 30 ml Bismuth Subsalicylate (Pepto-Bismol) 524 mg PO Q4 PRN PRN Reason: Diarrhea Donepezil HCl (Aricept) 5 mg PO HS [facility] Last Admin: 03/07/18 21:08 Dose: 5 mg Fluticasone Propionate (Flonase) 2 spr FRITZ DAILY [facility] Last Admin: 03/08/18 10:57 Dose: 2 spr Hamamelis (Tucks) 1 pad TP BID [facility] Last Admin: 03/08/18 08:07 Dose: 1 pad Levothyroxine Sodium (Synthroid) 75 mcg PO DAILY@0630 [facility] Last Admin: 03/08/18 05:54 Dose: 75 mcg Magnesium Hydroxide (Milk Of Magnesia) 30 ml PO HS PRN PRN Reason: Constipation Oxymetazoline HCl (Nasal Decongestant 15 Ml) 1 spr NS Q12 PRN PRN Reason: Nasal congestion Last Admin: 03/08/18 10:57 Dose: 1 spr Risperidone (Risperdal M-Tab) 1 mg PO BID [facility] Last Admin: 03/08/18 08:06 Dose: 1 mg - Labs Labs: 02/27/18 07:10 02/27/18 07:10 Assessment and Plan (1) Dementia with behavioral disturbance Status: Acute (2) Hypothyroidism (acquired) Status: Acute (3) Psychosis Status: Acute
[2018-03-09] MEDS: Levothyroxine 75 MCG TAB PO SCH (06:03)
--- NOTE | 2018-03-09 08:14 | PCM.PYCHPN ---
Psychiatric Progress Note - Psychiatric Progress Note Patient seen today, length of contact: Pt evaluated, case discussed w/ team, chart reviewed Patient Chief Complaint: Inability to care for self Problems Identified/Issues Discussed: No new events overnight. No behavioral issues. Patient reports her mood is stable. She denies acute depression/anxiety. She has been compliant with Risperdal. No adverse effects to medications reported. She understands that she will need equipment operator intermodal yard placement. Medication Change: No Medical Record Reviewed: Yes Consults ordered or reviewed: Medicine consult Mental Status Examination - Cognitive Function Orientation: Person, Place, Time Memory: Impaired Concentration: Poor Association: Loose Fund of Knowledge: Poor Decription of patient's judgement and insights: Chronic limitations in I/J due to dementia - Mood Mood: Neutral - Affect Affect: Broad - Speech Speech: Appropriate - Formal Thought Process Formal Thought Process: Circumstantial Psychotic Thoughts and Behaviors: Denies AH/VH - Suicidal Ideation Suicidal Ideation: No - Homicidal Ideation Homicidal Ideation: No Goal/Treatment Plan - Goal/Treatment Plan Need for Continued Stay: Severe functional impairment Progress Toward Problem(s) and Goals/Treatment Plan: Alzheimer's Dementia without behavioral disturbance; Psychosis NOS; patient is psychiatrically stable for referral for equipment operator intermodal yard placement -Individual and group therapy -Continue Aricept -Continue Risperdal -Medicine consult -Psychoeducation -Case discussed w/ POA and patient's PMD -Disposition planning- referral for skilled nursing placement Estimated Date of D/C: 03/11/18
[2018-03-09] MEDS: Risperidone M tab 1 MG PO SCH ×2 (08:33→16:03)
--- NOTE | 2018-03-09 21:32 | CP.PCM.PN ---
Subjective - Date & Time of Evaluation Date of Evaluation: 03/09/18 Objective - Vital Signs/Intake and Output Vital Signs (last 24 hours): Temp Pulse Resp BP Pulse Ox 98.2 F 89 18 108/55 L 98 03/09/18 15:43 03/09/18 15:43 03/09/18 15:43 03/09/18 15:43 02/17/18 02:07 - Medications Medications: Current Medications Acetaminophen (Tylenol 325mg Tab) 650 mg PO Q4 PRN PRN Reason: Pain, moderate (4-7) Last Admin: 02/17/18 03:12 Dose: 650 mg Al Hydrox/Mg Hydrox/Simethicone (Maalox Plus 30 Ml) 30 ml PO Q4 PRN PRN Reason: Dyspepsia Last Admin: 02/20/18 20:56 Dose: 30 ml Bismuth Subsalicylate (Pepto-Bismol) 524 mg PO Q4 PRN PRN Reason: Diarrhea Donepezil HCl (Aricept) 5 mg PO HS [facility] Last Admin: 03/09/18 21:13 Dose: 5 mg Fluticasone Propionate (Flonase) 2 spr FRITZ DAILY [facility] Last Admin: 03/09/18 08:32 Dose: 2 spr Hamamelis (Tucks) 1 pad TP BID [facility] Last Admin: 03/09/18 16:17 Dose: 1 pad Levothyroxine Sodium (Synthroid) 75 mcg PO DAILY@0630 [facility] Last Admin: 03/09/18 06:03 Dose: 75 mcg Magnesium Hydroxide (Milk Of Magnesia) 30 ml PO HS PRN PRN Reason: Constipation Oxymetazoline HCl (Nasal Decongestant 15 Ml) 1 spr NS Q12 PRN PRN Reason: Nasal congestion Last Admin: 03/09/18 21:14 Dose: 1 spr Risperidone (Risperdal M-Tab) 1 mg PO BID [facility] Last Admin: 03/09/18 16:03 Dose: 1 mg - Labs Labs: 02/27/18 07:10 02/27/18 07:10 Assessment and Plan (1) Dementia with behavioral disturbance Status: Acute (2) Hypothyroidism (acquired) Status: Acute (3) Psychosis Status: Acute
[2018-03-10] MEDS: Levothyroxine 75 MCG TAB PO SCH (05:30)
--- NOTE | 2018-03-10 08:04 | PCM.PYCHPN ---
Psychiatric Progress Note - Psychiatric Progress Note Patient seen today, length of contact: Pt evaluated, case discussed w/ team, chart reviewed Patient Chief Complaint: Inability to care for self Problems Identified/Issues Discussed: No new events. No behavioral issues. Patient reports her mood is stable. She denies acute depression/anxiety. She has been compliant with Risperdal. No adverse effects to medications reported. She understands that she will need long-term placement. Medication Change: No Medical Record Reviewed: Yes Consults ordered or reviewed: Medicine consult Mental Status Examination - Cognitive Function Orientation: Person, Place, Time Memory: Impaired Concentration: Poor Association: Loose Fund of Knowledge: Poor Decription of patient's judgement and insights: Chronic limitations in I/J due to dementia - Mood Mood: Neutral - Affect Affect: Broad - Speech Speech: Appropriate - Formal Thought Process Formal Thought Process: Circumstantial Psychotic Thoughts and Behaviors: Denies AH/VH - Suicidal Ideation Suicidal Ideation: No - Homicidal Ideation Homicidal Ideation: No Goal/Treatment Plan - Goal/Treatment Plan Need for Continued Stay: Severe functional impairment Progress Toward Problem(s) and Goals/Treatment Plan: Alzheimer's Dementia without behavioral disturbance; Psychosis NOS; patient is psychiatrically stable for referral for long-term placement -Individual and group therapy -Continue Aricept -Continue Risperdal -Medicine consult -Psychoeducation -Case discussed w/ POA and patient's PMD -Disposition planning- referral for terminal operator placement Estimated Date of D/C: 03/11/18
[2018-03-10] MEDS: Risperidone M tab 1 MG PO SCH ×2 (08:50→16:38)
--- NOTE | 2018-03-10 21:56 | CP.PCM.PN ---
Subjective - Date & Time of Evaluation Date of Evaluation: 03/10/18 Time of Evaluation: 16:35 Objective - Vital Signs/Intake and Output Vital Signs (last 24 hours): Temp Pulse Resp BP Pulse Ox 97.6 F 85 20 110/63 98 03/10/18 16:18 03/10/18 16:18 03/10/18 16:18 03/10/18 16:18 02/17/18 02:07 - Medications Medications: Current Medications Acetaminophen (Tylenol 325mg Tab) 650 mg PO Q4 PRN PRN Reason: Pain, moderate (4-7) Last Admin: 02/17/18 03:12 Dose: 650 mg Al Hydrox/Mg Hydrox/Simethicone (Maalox Plus 30 Ml) 30 ml PO Q4 PRN PRN Reason: Dyspepsia Last Admin: 02/20/18 20:56 Dose: 30 ml Bismuth Subsalicylate (Pepto-Bismol) 524 mg PO Q4 PRN PRN Reason: Diarrhea Donepezil HCl (Aricept) 5 mg PO HS [facility] Last Admin: 03/10/18 21:08 Dose: 5 mg Fluticasone Propionate (Flonase) 2 spr FRITZ DAILY [facility] Last Admin: 03/10/18 08:50 Dose: 2 spr Hamamelis (Tucks) 1 pad TP BID [facility] Last Admin: 03/10/18 16:40 Dose: 1 pad Levothyroxine Sodium (Synthroid) 75 mcg PO DAILY@0630 [facility] Last Admin: 03/10/18 05:30 Dose: 75 mcg Magnesium Hydroxide (Milk Of Magnesia) 30 ml PO HS PRN PRN Reason: Constipation Oxymetazoline HCl (Nasal Decongestant 15 Ml) 1 spr NS Q12 PRN PRN Reason: Nasal congestion Last Admin: 03/09/18 21:14 Dose: 1 spr Risperidone (Risperdal M-Tab) 1 mg PO BID [facility] Last Admin: 03/10/18 16:38 Dose: 1 mg - Labs Labs: 02/27/18 07:10 02/27/18 07:10 Assessment and Plan (1) Dementia with behavioral disturbance Status: Acute (2) Hypothyroidism (acquired) Status: Acute (3) Psychosis Status: Acute
[2018-03-11] MEDS: Levothyroxine 75 MCG TAB PO SCH (06:02)
[2018-03-11] MEDS: Risperidone M tab 1 MG PO SCH ×2 (08:25→17:31)
--- NOTE | 2018-03-11 09:56 | PCM.PYCHPN ---
Psychiatric Progress Note - Psychiatric Progress Note Patient seen today, length of contact: Pt evaluated, case discussed w/ team, chart reviewed Patient Chief Complaint: Inability to care for self Problems Identified/Issues Discussed: No new events overnight. No behavioral issues. Patient reports her mood is stable. She denies acute depression/anxiety. She has been compliant with Risperdal. No adverse effects to medications reported. She understands that she will need exterminator termite placement. Medication Change: No Medical Record Reviewed: Yes Consults ordered or reviewed: Medicine consult Mental Status Examination - Cognitive Function Orientation: Person, Place, Time Memory: Impaired Concentration: Poor Association: Loose Fund of Knowledge: Poor Decription of patient's judgement and insights: Chronic limitations in I/J due to dementia - Mood Mood: Neutral - Affect Affect: Broad - Speech Speech: Appropriate - Formal Thought Process Formal Thought Process: Circumstantial Psychotic Thoughts and Behaviors: Denies AH/VH - Suicidal Ideation Suicidal Ideation: No - Homicidal Ideation Homicidal Ideation: No Goal/Treatment Plan - Goal/Treatment Plan Need for Continued Stay: Severe functional impairment Progress Toward Problem(s) and Goals/Treatment Plan: Alzheimer's Dementia without behavioral disturbance; Psychosis NOS; patient is psychiatrically stable for referral for exterminator termite placement -Individual and group therapy -Continue Aricept -Continue Risperdal -Medicine consult -Psychoeducation -Case discussed w/ POA and patient's PMD -Disposition planning- referral for shelter placement Estimated Date of D/C: 03/15/18
--- NOTE | 2018-03-12 01:28 | CP.PCM.PN ---
Subjective - Date & Time of Evaluation Date of Evaluation: 03/11/18 Time of Evaluation: 16:10 Objective - Vital Signs/Intake and Output Vital Signs (last 24 hours): Temp Pulse Resp BP Pulse Ox 98.7 F 89 18 99/55 L 98 03/11/18 15:39 03/11/18 15:39 03/11/18 15:39 03/11/18 15:39 02/17/18 02:07 - Medications Medications: Current Medications Acetaminophen (Tylenol 325mg Tab) 650 mg PO Q4 PRN PRN Reason: Pain, moderate (4-7) Last Admin: 02/17/18 03:12 Dose: 650 mg Al Hydrox/Mg Hydrox/Simethicone (Maalox Plus 30 Ml) 30 ml PO Q4 PRN PRN Reason: Dyspepsia Last Admin: 02/20/18 20:56 Dose: 30 ml Bismuth Subsalicylate (Pepto-Bismol) 524 mg PO Q4 PRN PRN Reason: Diarrhea Donepezil HCl (Aricept) 5 mg PO HS [facility] Last Admin: 03/11/18 21:05 Dose: 5 mg Fluticasone Propionate (Flonase) 2 spr FRITZ DAILY [facility] Last Admin: 03/11/18 08:25 Dose: 2 spr Hamamelis (Tucks) 1 pad TP BID [facility] Last Admin: 03/11/18 17:32 Dose: 1 pad Levothyroxine Sodium (Synthroid) 75 mcg PO DAILY@0630 [facility] Last Admin: 03/11/18 06:02 Dose: 75 mcg Magnesium Hydroxide (Milk Of Magnesia) 30 ml PO HS PRN PRN Reason: Constipation Oxymetazoline HCl (Nasal Decongestant 15 Ml) 1 spr NS Q12 PRN PRN Reason: Nasal congestion Last Admin: 03/09/18 21:14 Dose: 1 spr Risperidone (Risperdal M-Tab) 1 mg PO BID [facility] Last Admin: 03/11/18 17:31 Dose: 1 mg - Labs Labs: 02/27/18 07:10 02/27/18 07:10 Assessment and Plan (1) Dementia with behavioral disturbance Status: Acute (2) Hypothyroidism (acquired) Status: Acute (3) Psychosis Status: Acute
[2018-03-12] MEDS: Levothyroxine 75 MCG TAB PO SCH (05:45)
[2018-03-12] MEDS: Risperidone M tab 1 MG PO SCH ×2 (08:37→17:10)
--- NOTE | 2018-03-12 09:52 | PCM.PYCHPN ---
Psychiatric Progress Note - Psychiatric Progress Note Patient seen today, length of contact: Pt evaluated, case discussed w/ team, chart reviewed Patient Chief Complaint: pt has been improving on the unit and socializing better ..pt has been less paranoid and less anxious and less depressed but remains with limited insight . Medication Change: No Medical Record Reviewed: Yes Mental Status Examination - Cognitive Function Orientation: Person, Place, Time Memory: Impaired Concentration: Poor Association: Loose Fund of Knowledge: Poor - Mood Mood: Neutral - Affect Affect: Broad - Speech Speech: Appropriate - Formal Thought Process Formal Thought Process: Circumstantial - Suicidal Ideation Suicidal Ideation: No - Homicidal Ideation Homicidal Ideation: No Goal/Treatment Plan - Goal/Treatment Plan Need for Continued Stay: Severe functional impairment Progress Toward Problem(s) and Goals/Treatment Plan: will continue to stabilize with risperdal. pt is waiting for placement. Estimated Date of D/C: 03/15/18
--- NOTE | 2018-03-12 14:57 | PCM.BM ---
Treatment Plan Problems - Problems identified on initial assessmt Problem 2 Date Initiated: 02/18/18 Time Initiated: 10:49 Assessment reference: HP, NA Status: Active Delusions Date Initiated: 02/18/18 Time Initiated: 10:48 Assessment reference: HP, NA Status: Active Treatment assets and liabiliti Patient Assests: ADL independent, negotiates basic needs Patient Liabilities: live alone, relationship conflicts, medical problems, imparied memory - Milieu Protocol Maintain good personal hygiene: daily Encourage regular showers, daily Remind patient to perform daily oral care, daily Assist patient to perform ADL's Conduct patient checks and document Observation sheet: Q15 minutes Maintain personal safety: every shift Educate patient to report safety concerns to staff, every shift Monitor environment for contraband/sharps Medication safety: Monitor for expected outcome, potential side effects: every shift, Assess barriers to learning: every shift, Assess readiness for medication education: every shift Milieu Narrative: will continue to stabilize with risperdal. pt is waiting for placement. Family Contact Family involvement: Family/SO is involved Family contact: Patient agrees to contact, Family has been contacted by patient, Telephone contact initiated by staff Family contact name: Denise PALAFOX Family contacted how many times per week?: 4 Family contact comment: Newspaper Or Periodical Editor spoke with pt's daughter and JAVY, Denise [phone], to gain collateral and discuss treatment and discharge. Denise reported that pt was brought to the ED after pt's other daughter came to visit her apartment and found it to be extremely hot and pt did not have any food in her refrigerator. Denise reported that pt will not speak to her or allow her into her apartment because the pt believes that Denise is poisoning her. Denise reported that pt was residing in [place] near her other daughter and would call Denise and tell her that the other daughter was trying to kill her or say that she attempted to hit her with a car. Pt also called the police in September with fears that someone was attempting to break into her apartment to poison her. Denise reported that the police found all of pt's belongings in boxes. Denise reported that pt has no prior psych history, but was diagnosed with Alzheimer's Disease on Oct 29, 2015 by Jeni Vanegas. Pt's two daughters do not feel that pt is safe to return home and are hoping to have pt placed in Long-term care. - Goals for Treatment Patient goals for treatment: Pt unable to formulate goals due to dementia. Patient's family/SO goals for treatment: Daughter would like pt placed in long- term care where gher dementia can be specially treated. Discharge/Continuing Care - Education Needs Education Needs: Family Medication, Family Diagnosis/Disease Process, Family Coping Skills, Family Aftercare Safety Plan, Patient Medication, Patient Diagnosis/Disease Process, Patient Coping Skills, Patient Aftercare Safety Plan - Discharge Discharge Criteria: Tolerates medication w/o severe side effects, Free of paranoid thoughts, Free of agitation, Reduction of target symptoms Discharge to:: [facility] - Treatment Team Participation Patient/Family/SO Statement: will continue to stabilize with risperdal. pt is waiting for placement. Discussed with Family/SO: Yes Was Patient/Family/SO present at Treatment Team Meeting: Yes Treatment Plan Review - Problem Problem 2 Time Initiated: 10:49 Delusions Time Initiated: 10:48 - Discharge / Continuing Care Discharge to:: [facility] Services: Residential treatment Health Needs: Follow up care/test, Doctor appointments, Medications/Rx (Pt was seen in treatment team for review on 03/11/18. As per pt she reported that her daughter doesnot want her to be admitted to a fpc and is looking for apartments for her. This statement is a delusion as pt's daughter still wishes pt to be referred to a fpc. Pt denied SI/HI and AVT hallucinations.)
[2018-03-13] MEDS: Levothyroxine 75 MCG TAB PO SCH (06:09)
[2018-03-13] MEDS: Risperidone M tab 1 MG PO SCH ×2 (08:18→17:18)
--- NOTE | 2018-03-13 10:56 | PCM.PYCHPN ---
Psychiatric Progress Note - Psychiatric Progress Note Patient seen today, length of contact: Pt evaluated, case discussed w/ team, chart reviewed Patient Chief Complaint: I am fine today Problems Identified/Issues Discussed: pt on evaluation, smiling, cooperative reported feeling well, no behavioral disturbances reported by staff, compliant with medications, denied S/H I denied perceptual disturbances DSM 5 Symptoms Update: Major neurocognitive disorder Medication Change: No Medical Record Reviewed: Yes Mental Status Examination - Cognitive Function Orientation: Person, Place, Time Memory: Impaired Concentration: Poor Association: Loose Fund of Knowledge: Poor - Mood Mood: Neutral - Affect Affect: Broad - Speech Speech: Appropriate - Formal Thought Process Formal Thought Process: Circumstantial - Suicidal Ideation Suicidal Ideation: No - Homicidal Ideation Homicidal Ideation: No Goal/Treatment Plan - Goal/Treatment Plan Need for Continued Stay: Severe functional impairment Progress Toward Problem(s) and Goals/Treatment Plan: continue current management Estimated Date of D/C: 03/15/18
[2018-03-14] MEDS: Levothyroxine 75 MCG TAB PO SCH (05:49)
[2018-03-14] MEDS: Risperidone M tab 1 MG PO SCH ×2 (08:37→17:25)
--- NOTE | 2018-03-14 08:55 | PCM.PYCHPN ---
Psychiatric Progress Note - Psychiatric Progress Note Patient seen today, length of contact: Pt evaluated, case discussed w/ team, chart reviewed Patient Chief Complaint: Inability to care for self Problems Identified/Issues Discussed: No new events over the weekend. No behavioral issues. Patient reports her mood is stable. She denies acute depression/anxiety. She has been compliant with Risperdal. No adverse effects to medications reported. She understands that she will need middle or intermediate school principal placement. Medication Change: No Medical Record Reviewed: Yes Consults ordered or reviewed: Medicine consult Mental Status Examination - Cognitive Function Orientation: Person, Place, Time Memory: Impaired Concentration: Poor Association: Loose Fund of Knowledge: Poor Decription of patient's judgement and insights: Chronic poor I/J due to dementia - Mood Mood: Neutral - Affect Affect: Broad - Speech Speech: Appropriate - Formal Thought Process Formal Thought Process: Circumstantial Psychotic Thoughts and Behaviors: Denies AH/VH/paranoia - Suicidal Ideation Suicidal Ideation: No - Homicidal Ideation Homicidal Ideation: No Goal/Treatment Plan - Goal/Treatment Plan Need for Continued Stay: Severe functional impairment Progress Toward Problem(s) and Goals/Treatment Plan: Alzheimer's Dementia without behavioral disturbance; Psychosis NOS; patient is psychiatrically stable for referral for snf placement -Individual and group therapy -Continue Aricept -Continue Risperdal -Medicine consult -Psychoeducation -Case discussed w/ POA and patient's PMD -Disposition planning- referral for snf placement Estimated Date of D/C: 03/18/18
[2018-03-15] MEDS: Levothyroxine 75 MCG TAB PO SCH (05:50)
[2018-03-15] MEDS: Risperidone M tab 1 MG PO SCH ×2 (08:15→17:28)
--- NOTE | 2018-03-15 10:09 | PCM.PYCHPN ---
Psychiatric Progress Note - Psychiatric Progress Note Patient seen today, length of contact: Pt evaluated, case discussed w/ team, chart reviewed Patient Chief Complaint: Inability to care for self Problems Identified/Issues Discussed: No new events. Patient reports her mood is stable. She denies acute depression/anxiety. She has been compliant with Risperdal. No adverse effects to medications reported. She understands that she will need fpc placement. Medication Change: No Medical Record Reviewed: Yes Consults ordered or reviewed: Medicine consult Mental Status Examination - Cognitive Function Orientation: Person, Place, Time Memory: Impaired Concentration: Poor Association: Loose Fund of Knowledge: Poor Decription of patient's judgement and insights: Chronic poor I/J due to dementia - Mood Mood: Neutral - Affect Affect: Broad - Speech Speech: Appropriate - Formal Thought Process Formal Thought Process: Circumstantial Psychotic Thoughts and Behaviors: Denies AH/VH/paranoia - Suicidal Ideation Suicidal Ideation: No - Homicidal Ideation Homicidal Ideation: No Goal/Treatment Plan - Goal/Treatment Plan Need for Continued Stay: Severe functional impairment Progress Toward Problem(s) and Goals/Treatment Plan: Alzheimer's Dementia without behavioral disturbance; Psychosis NOS; patient is psychiatrically stable for referral for fpc placement -Individual and group therapy -Continue Aricept -Continue Risperdal -Medicine consult -Psychoeducation -Case discussed w/ POA and patient's PMD -Disposition planning- referral for rat exterminator placement Estimated Date of D/C: 03/16/18
[2018-03-16] MEDS: Levothyroxine 75 MCG TAB PO SCH (06:02)
--- NOTE | 2018-03-16 08:23 | PCM.PYCHPN ---
Psychiatric Progress Note - Psychiatric Progress Note Patient seen today, length of contact: Pt evaluated, case discussed w/ team, chart reviewed Patient Chief Complaint: Inability to care for self Problems Identified/Issues Discussed: No new events overnight. Patient reports her mood is stable. She denies acute depression/anxiety. She has been compliant with Risperdal. No adverse effects to medications reported. She understands that she will need care home [employer]. Medication Change: No Medical Record Reviewed: Yes Consults ordered or reviewed: Medicine consult Mental Status Examination - Cognitive Function Orientation: Person, Place, Time Memory: Impaired Concentration: Poor Association: Loose Fund of Knowledge: Poor Decription of patient's judgement and insights: Chronic poor I/J due to dementia - Mood Mood: Neutral - Affect Affect: Broad - Speech Speech: Appropriate - Formal Thought Process Formal Thought Process: Circumstantial Psychotic Thoughts and Behaviors: Denies AH/VH/paranoia - Suicidal Ideation Suicidal Ideation: No - Homicidal Ideation Homicidal Ideation: No Goal/Treatment Plan - Goal/Treatment Plan Need for Continued Stay: Severe functional impairment Progress Toward Problem(s) and Goals/Treatment Plan: Alzheimer's Dementia without behavioral disturbance; Psychosis NOS; patient is psychiatrically stable for referral for care home placement; pending correction placement -Individual and group therapy -Continue Aricept -Continue Risperdal -Medicine consult -Psychoeducation -Case discussed w/ POA and patient's PMD -Disposition planning- pending correction placement, see RODRICK re: disposition planning
[2018-03-16] MEDS: Risperidone M tab 1 MG PO SCH ×2 (09:37→17:17)
--- NOTE | 2018-03-17 04:53 | CP.PCM.PN ---
Subjective - Date & Time of Evaluation Date of Evaluation: 03/13/18 Objective - Vital Signs/Intake and Output Vital Signs (last 24 hours): Temp Pulse Resp BP Pulse Ox 98.1 F 88 18 107/55 L 98 03/16/18 15:47 03/16/18 15:47 03/16/18 15:47 03/16/18 15:47 02/17/18 02:07 - Medications Medications: Current Medications Acetaminophen (Tylenol 325mg Tab) 650 mg PO Q4 PRN PRN Reason: Pain, moderate (4-7) Last Admin: 02/17/18 03:12 Dose: 650 mg Al Hydrox/Mg Hydrox/Simethicone (Maalox Plus 30 Ml) 30 ml PO Q4 PRN PRN Reason: Dyspepsia Last Admin: 02/20/18 20:56 Dose: 30 ml Bismuth Subsalicylate (Pepto-Bismol) 524 mg PO Q4 PRN PRN Reason: Diarrhea Donepezil HCl (Aricept) 5 mg PO HS [facility] Last Admin: 03/16/18 21:01 Dose: 5 mg Fluticasone Propionate (Flonase) 2 spr FRITZ DAILY [facility] Last Admin: 03/16/18 09:37 Dose: 2 spr Hamamelis (Tucks) 1 pad TP BID [facility] Last Admin: 03/16/18 17:17 Dose: 1 pad Levothyroxine Sodium (Synthroid) 75 mcg PO DAILY@0630 [facility] Last Admin: 03/16/18 06:02 Dose: 75 mcg Magnesium Hydroxide (Milk Of Magnesia) 30 ml PO HS PRN PRN Reason: Constipation Risperidone (Risperdal M-Tab) 1 mg PO BID [facility] Last Admin: 03/16/18 17:17 Dose: 1 mg - Labs Labs: 02/27/18 07:10 02/27/18 07:10 Assessment and Plan (1) Dementia with behavioral disturbance Status: Acute (2) Hypothyroidism (acquired) Status: Acute (3) Psychosis Status: Acute
--- NOTE | 2018-03-17 04:53 | CP.PCM.PN ---
Subjective - Date & Time of Evaluation Date of Evaluation: 03/12/18 Time of Evaluation: 19:05 Objective - Vital Signs/Intake and Output Vital Signs (last 24 hours): Temp Pulse Resp BP Pulse Ox 98.1 F 88 18 107/55 L 98 03/16/18 15:47 03/16/18 15:47 03/16/18 15:47 03/16/18 15:47 02/17/18 02:07 - Medications Medications: Current Medications Acetaminophen (Tylenol 325mg Tab) 650 mg PO Q4 PRN PRN Reason: Pain, moderate (4-7) Last Admin: 02/17/18 03:12 Dose: 650 mg Al Hydrox/Mg Hydrox/Simethicone (Maalox Plus 30 Ml) 30 ml PO Q4 PRN PRN Reason: Dyspepsia Last Admin: 02/20/18 20:56 Dose: 30 ml Bismuth Subsalicylate (Pepto-Bismol) 524 mg PO Q4 PRN PRN Reason: Diarrhea Donepezil HCl (Aricept) 5 mg PO HS [facility] Last Admin: 03/16/18 21:01 Dose: 5 mg Fluticasone Propionate (Flonase) 2 spr FRITZ DAILY [facility] Last Admin: 03/16/18 09:37 Dose: 2 spr Hamamelis (Tucks) 1 pad TP BID [facility] Last Admin: 03/16/18 17:17 Dose: 1 pad Levothyroxine Sodium (Synthroid) 75 mcg PO DAILY@0630 [facility] Last Admin: 03/16/18 06:02 Dose: 75 mcg Magnesium Hydroxide (Milk Of Magnesia) 30 ml PO HS PRN PRN Reason: Constipation Risperidone (Risperdal M-Tab) 1 mg PO BID [facility] Last Admin: 03/16/18 17:17 Dose: 1 mg - Labs Labs: 02/27/18 07:10 02/27/18 07:10 Assessment and Plan (1) Dementia with behavioral disturbance Status: Acute (2) Hypothyroidism (acquired) Status: Acute (3) Psychosis Status: Acute
--- NOTE | 2018-03-17 04:54 | CP.PCM.PN ---
Subjective - Date & Time of Evaluation Date of Evaluation: 03/14/18 Objective - Vital Signs/Intake and Output Vital Signs (last 24 hours): Temp Pulse Resp BP Pulse Ox 98.1 F 88 18 107/55 L 98 03/16/18 15:47 03/16/18 15:47 03/16/18 15:47 03/16/18 15:47 02/17/18 02:07 - Medications Medications: Current Medications Acetaminophen (Tylenol 325mg Tab) 650 mg PO Q4 PRN PRN Reason: Pain, moderate (4-7) Last Admin: 02/17/18 03:12 Dose: 650 mg Al Hydrox/Mg Hydrox/Simethicone (Maalox Plus 30 Ml) 30 ml PO Q4 PRN PRN Reason: Dyspepsia Last Admin: 02/20/18 20:56 Dose: 30 ml Bismuth Subsalicylate (Pepto-Bismol) 524 mg PO Q4 PRN PRN Reason: Diarrhea Donepezil HCl (Aricept) 5 mg PO HS [facility] Last Admin: 03/16/18 21:01 Dose: 5 mg Fluticasone Propionate (Flonase) 2 spr FRITZ DAILY [facility] Last Admin: 03/16/18 09:37 Dose: 2 spr Hamamelis (Tucks) 1 pad TP BID [facility] Last Admin: 03/16/18 17:17 Dose: 1 pad Levothyroxine Sodium (Synthroid) 75 mcg PO DAILY@0630 [facility] Last Admin: 03/16/18 06:02 Dose: 75 mcg Magnesium Hydroxide (Milk Of Magnesia) 30 ml PO HS PRN PRN Reason: Constipation Risperidone (Risperdal M-Tab) 1 mg PO BID [facility] Last Admin: 03/16/18 17:17 Dose: 1 mg - Labs Labs: 02/27/18 07:10 02/27/18 07:10 Assessment and Plan (1) Dementia with behavioral disturbance Status: Acute (2) Hypothyroidism (acquired) Status: Acute (3) Psychosis Status: Acute
--- NOTE | 2018-03-17 04:55 | CP.PCM.PN ---
Subjective - Date & Time of Evaluation Date of Evaluation: 03/15/18 Objective - Vital Signs/Intake and Output Vital Signs (last 24 hours): Temp Pulse Resp BP Pulse Ox 98.1 F 88 18 107/55 L 98 03/16/18 15:47 03/16/18 15:47 03/16/18 15:47 03/16/18 15:47 02/17/18 02:07 - Medications Medications: Current Medications Acetaminophen (Tylenol 325mg Tab) 650 mg PO Q4 PRN PRN Reason: Pain, moderate (4-7) Last Admin: 02/17/18 03:12 Dose: 650 mg Al Hydrox/Mg Hydrox/Simethicone (Maalox Plus 30 Ml) 30 ml PO Q4 PRN PRN Reason: Dyspepsia Last Admin: 02/20/18 20:56 Dose: 30 ml Bismuth Subsalicylate (Pepto-Bismol) 524 mg PO Q4 PRN PRN Reason: Diarrhea Donepezil HCl (Aricept) 5 mg PO HS [facility] Last Admin: 03/16/18 21:01 Dose: 5 mg Fluticasone Propionate (Flonase) 2 spr FRITZ DAILY [facility] Last Admin: 03/16/18 09:37 Dose: 2 spr Hamamelis (Tucks) 1 pad TP BID [facility] Last Admin: 03/16/18 17:17 Dose: 1 pad Levothyroxine Sodium (Synthroid) 75 mcg PO DAILY@0630 [facility] Last Admin: 03/16/18 06:02 Dose: 75 mcg Magnesium Hydroxide (Milk Of Magnesia) 30 ml PO HS PRN PRN Reason: Constipation Risperidone (Risperdal M-Tab) 1 mg PO BID [facility] Last Admin: 03/16/18 17:17 Dose: 1 mg - Labs Labs: 02/27/18 07:10 02/27/18 07:10 Assessment and Plan (1) Dementia with behavioral disturbance Status: Acute (2) Hypothyroidism (acquired) Status: Acute (3) Psychosis Status: Acute
--- NOTE | 2018-03-17 04:56 | CP.PCM.PN ---
Subjective - Date & Time of Evaluation Date of Evaluation: 03/16/18 Objective - Vital Signs/Intake and Output Vital Signs (last 24 hours): Temp Pulse Resp BP Pulse Ox 98.1 F 88 18 107/55 L 98 03/16/18 15:47 03/16/18 15:47 03/16/18 15:47 03/16/18 15:47 02/17/18 02:07 - Medications Medications: Current Medications Acetaminophen (Tylenol 325mg Tab) 650 mg PO Q4 PRN PRN Reason: Pain, moderate (4-7) Last Admin: 02/17/18 03:12 Dose: 650 mg Al Hydrox/Mg Hydrox/Simethicone (Maalox Plus 30 Ml) 30 ml PO Q4 PRN PRN Reason: Dyspepsia Last Admin: 02/20/18 20:56 Dose: 30 ml Bismuth Subsalicylate (Pepto-Bismol) 524 mg PO Q4 PRN PRN Reason: Diarrhea Donepezil HCl (Aricept) 5 mg PO HS [facility] Last Admin: 03/16/18 21:01 Dose: 5 mg Fluticasone Propionate (Flonase) 2 spr FRITZ DAILY [facility] Last Admin: 03/16/18 09:37 Dose: 2 spr Hamamelis (Tucks) 1 pad TP BID [facility] Last Admin: 03/16/18 17:17 Dose: 1 pad Levothyroxine Sodium (Synthroid) 75 mcg PO DAILY@0630 [facility] Last Admin: 03/16/18 06:02 Dose: 75 mcg Magnesium Hydroxide (Milk Of Magnesia) 30 ml PO HS PRN PRN Reason: Constipation Risperidone (Risperdal M-Tab) 1 mg PO BID [facility] Last Admin: 03/16/18 17:17 Dose: 1 mg - Labs Labs: 02/27/18 07:10 02/27/18 07:10 Assessment and Plan (1) Dementia with behavioral disturbance Status: Acute (2) Hypothyroidism (acquired) Status: Acute (3) Psychosis Status: Acute
[2018-03-17] MEDS: Levothyroxine 75 MCG TAB PO SCH (06:13)
[2018-03-17] MEDS: Risperidone M tab 1 MG PO SCH ×2 (08:24→16:57)
--- NOTE | 2018-03-17 08:52 | PCM.PYCHPN ---
Psychiatric Progress Note - Psychiatric Progress Note Patient seen today, length of contact: Pt evaluated, case discussed w/ team, chart reviewed Patient Chief Complaint: Inability to care for self Problems Identified/Issues Discussed: No new events. Patient reports her mood is stable. She denies acute depression/anxiety. She has been compliant with Risperdal. No adverse effects to medications reported. She understands that she will need [facility] placement. Medication Change: No Medical Record Reviewed: Yes Consults ordered or reviewed: Medicine consult Mental Status Examination - Cognitive Function Orientation: Person, Place, Time Memory: Impaired Concentration: Poor Association: Loose Fund of Knowledge: Poor Decription of patient's judgement and insights: Chronic poor I/J due to dementia - Mood Mood: Neutral - Affect Affect: Broad - Speech Speech: Appropriate - Formal Thought Process Formal Thought Process: Circumstantial Psychotic Thoughts and Behaviors: Denies AH/VH - Suicidal Ideation Suicidal Ideation: No - Homicidal Ideation Homicidal Ideation: No Goal/Treatment Plan - Goal/Treatment Plan Need for Continued Stay: Severe functional impairment Progress Toward Problem(s) and Goals/Treatment Plan: Alzheimer's Dementia without behavioral disturbance; Psychosis NOS; patient is psychiatrically stable for referral for terminal operations supervisor placement; pending penitentiary placement -Individual and group therapy -Continue Aricept -Continue Risperdal -Medicine consult -Psychoeducation -Case discussed w/ POA and patient's PMD -Disposition planning- pending penitentiary placement, see RODRICK re: disposition planning Estimated Date of D/C: 03/25/18
[2018-03-18] MEDS: Levothyroxine 75 MCG TAB PO SCH (06:06)
--- NOTE | 2018-03-18 07:50 | PCM.PYCHPN ---
Psychiatric Progress Note - Psychiatric Progress Note Patient seen today, length of contact: Pt evaluated, case discussed w/ team, chart reviewed Patient Chief Complaint: Inability to care for self Problems Identified/Issues Discussed: No new events. No behavioral issues. Patient reports her mood is stable. She denies acute depression/anxiety. She has been compliant with Risperdal. No adverse effects to medications reported. She understands that she will need correction placement. Medication Change: No Medical Record Reviewed: Yes Consults ordered or reviewed: Medicine consult Mental Status Examination - Cognitive Function Orientation: Person, Place, Time Memory: Impaired Concentration: Poor Association: Loose Fund of Knowledge: Poor Decription of patient's judgement and insights: Chronic poor I/J due to dementia - Mood Mood: Neutral - Affect Affect: Broad - Speech Speech: Appropriate - Formal Thought Process Formal Thought Process: Circumstantial Psychotic Thoughts and Behaviors: Denies AH/VH - Suicidal Ideation Suicidal Ideation: No - Homicidal Ideation Homicidal Ideation: No Goal/Treatment Plan - Goal/Treatment Plan Need for Continued Stay: Severe functional impairment Progress Toward Problem(s) and Goals/Treatment Plan: Alzheimer's Dementia without behavioral disturbance; Psychosis NOS; patient is psychiatrically stable for referral for carrot tier placement; pending assisted placement -Individual and group therapy -Continue Aricept -Continue Risperdal -Medicine consult -Psychoeducation -Case discussed w/ POA and patient's PMD -Disposition planning- pending assisted placement, see RODRICK re: disposition planning Estimated Date of D/C: 03/25/18
[2018-03-18] MEDS: Risperidone M tab 1 MG PO SCH ×2 (08:35→16:54)
--- NOTE | 2018-03-18 11:35 | CP.PCM.PN ---
Subjective - Date & Time of Evaluation Date of Evaluation: 03/17/18 Time of Evaluation: 17:35 Objective - Vital Signs/Intake and Output Vital Signs (last 24 hours): Temp Pulse Resp BP Pulse Ox 98.0 F 87 18 109/68 98 03/18/18 06:00 03/18/18 06:00 03/18/18 06:00 03/18/18 06:00 02/17/18 02:07 - Medications Medications: Current Medications Acetaminophen (Tylenol 325mg Tab) 650 mg PO Q4 PRN PRN Reason: Pain, moderate (4-7) Last Admin: 03/18/18 00:45 Dose: 650 mg Al Hydrox/Mg Hydrox/Simethicone (Maalox Plus 30 Ml) 30 ml PO Q4 PRN PRN Reason: Dyspepsia Last Admin: 02/20/18 20:56 Dose: 30 ml Bismuth Subsalicylate (Pepto-Bismol) 524 mg PO Q4 PRN PRN Reason: Diarrhea Donepezil HCl (Aricept) 5 mg PO HS [facility] Last Admin: 03/17/18 21:16 Dose: 5 mg Fluticasone Propionate (Flonase) 2 spr FRITZ DAILY [facility] Last Admin: 03/18/18 08:35 Dose: 2 spr Hamamelis (Tucks) 1 pad TP BID [facility] Last Admin: 03/18/18 08:35 Dose: 1 pad Levothyroxine Sodium (Synthroid) 75 mcg PO DAILY@0630 [facility] Last Admin: 03/18/18 06:06 Dose: 75 mcg Magnesium Hydroxide (Milk Of Magnesia) 30 ml PO HS PRN PRN Reason: Constipation Naproxen (Naproxen) 500 mg PO Q12 [facility] Stop: 03/23/18 09:00 Risperidone (Risperdal M-Tab) 1 mg PO BID [facility] Last Admin: 03/18/18 08:35 Dose: 1 mg - Labs Labs: 02/27/18 07:10 02/27/18 07:10 Assessment and Plan (1) Dementia with behavioral disturbance Status: Acute (2) Hypothyroidism (acquired) Status: Acute (3) Psychosis Status: Acute
[2018-03-18] MEDS: Naproxen 500 MG TAB PO SCH ×2 (12:28→21:03)
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
--- NOTE | 2018-03-18 18:31 | US ---
Date of service: 03/18/2018 PROCEDURE: Bilateral lower extremity venous duplex Doppler. HISTORY: Left knee and Calf swollen and painful COMPARISON: None available. TECHNIQUE: Bilateral common femoral, superficial femoral, popliteal and posterior tibial veins were evaluated. Flow was assessed with color Doppler, compressibility, assessment of phasic flow and augmentation response. FINDINGS: COMMON FEMORAL VEIN: Right CFV: Unremarkable. Left CFV: Unremarkable. SUPERFICIAL FEMORAL VEIN: Right SFV: Unremarkable. Left SFV: Unremarkable. POPLITEAL VEIN: Right Popliteal: Unremarkable. Left Popliteal: Unremarkable. POSTERIOR TIBIAL VEIN: Right PTV: Unremarkable. Left PTV: Unremarkable. OTHER FINDINGS: None. IMPRESSION: No evidence of deep venous thrombosis.
[2018-03-18 19:14] LABS: BASO % 0.8 % (0.0-2.0); EOS # 0.3 K/uL (0.0-0.7); EOS % 6.2 % (0.0-4.0); HEMOGLOBIN 13.3 g/dL (12.0-16.0); LYMPH % 21.6 % (20.0-40.0); MEAN CELL VOLUME 91.4 fl (81.0-99.0); MEAN CORPUSCULAR HEMOGLOBIN 30.9 pg (27.0-31.0); MEAN CORPUSCULAR HGB CONC 33.8 g/dL (33.0-37.0); MEAN PLATELET VOLUME 8.1 fl (7.2-11.7); MONO # 0.5 K/uL (0.0-0.8); MONO % 11.9 % (0.0-10.0); NEUT # 2.7 K/uL (1.8-7.0); NEUT % 59.5 % (50.0-75.0); NRBC % 0.1 % (0.0-0.0); RBC 4.31 Mil/uL (3.80-5.20); RED CELL DISTRIBUTION WIDTH 15.3 % (11.5-14.5); WHITE BLOOD COUNT 4.5 K/uL (4.8-10.8)
[2018-03-18 20:12] LABS: ALB/GLOB RATIO 1.1 (1.0-2.1); ALBUMIN 3.7 g/dL (3.5-5.0); ALT/SGPT 36 U/L (9-52); AST/SGOT 45 U/L (14-36); BLOOD UREA NITROGEN 20 mg/dl (7-17); GFR NON-AFRICAN AMERICAN > 60; URIC ACID 5.2 mg/Dl (2.2-7.5)
[2018-03-18] MEDS ORDERED: Enoxaparin 60 mg Syringe SC SCH (21:00)
[2018-03-18] MEDS ORDERED: Aztreonam 1 GM in Sodium Chloride 0.9% 100 ML IVPB SCH (21:00)
[2018-03-18] MEDS ORDERED: Vancomycin 1 g Inj IVPB SCH (21:00)
[2018-03-18 21:08] LABS: SQUAMOUS EPITHIAL 1 /hpf (0-5); URINE BILIRUBIN NEGATIVE (NEGATIVE); URINE BLOOD NEGATIVE (NEGATIVE); URINE CLARITY CLEAR (Clear); URINE COLOR YELLOW (YELLOW); URINE GLUCOSE (UA) NEG (NEGATIVE); URINE LEUKOCYTE ESTERASE NEG Leu/uL (Negative); URINE PROTEIN NEGATIVE (NEGATIVE)
--- NOTE | 2018-03-18 23:03 | CP.PCM.PN ---
Subjective - Date & Time of Evaluation Date of Evaluation: 03/18/18 Time of Evaluation: 16:50 - Subjective Subjective: Seen and Examined at the bed side. Left Knee and Calf pain, and swelling. Denies fever or chills. No urinary symptoms. Objective - Vital Signs/Intake and Output Vital Signs (last 24 hours): Temp Pulse Resp BP Pulse Ox 96.1 F L 78 20 124/72 98 03/18/18 18:00 03/18/18 18:00 03/18/18 18:00 03/18/18 18:00 02/17/18 02:07 - Medications Medications: Current Medications Acetaminophen (Tylenol 325mg Tab) 650 mg PO Q4 PRN PRN Reason: Pain, moderate (4-7) Last Admin: 03/18/18 00:45 Dose: 650 mg Al Hydrox/Mg Hydrox/Simethicone (Maalox Plus 30 Ml) 30 ml PO Q4 PRN PRN Reason: Dyspepsia Last Admin: 02/20/18 20:56 Dose: 30 ml Bismuth Subsalicylate (Pepto-Bismol) 524 mg PO Q4 PRN PRN Reason: Diarrhea Donepezil HCl (Aricept) 5 mg PO HS [facility] Last Admin: 03/18/18 21:03 Dose: 5 mg Fluticasone Propionate (Flonase) 2 spr FRITZ DAILY [facility] Last Admin: 03/18/18 08:35 Dose: 2 spr Hamamelis (Tucks) 1 pad TP BID [facility] Last Admin: 03/18/18 16:54 Dose: 1 pad Aztreonam 1 gm/ Sodium (Chloride) 100 mls @ 100 mls/hr IVPB Q12 [facility]; Protocol Last Admin: 03/18/18 22:22 Dose: 100 mls/hr Vancomycin HCl 1 gm/ Sodium (Chloride) 250 mls @ 125 mls/hr IVPB Q12H [facility] Last Admin: 03/18/18 20:42 Dose: 125 mls/hr Levothyroxine Sodium (Synthroid) 75 mcg PO DAILY@0630 [facility] Last Admin: 03/18/18 06:06 Dose: 75 mcg Magnesium Hydroxide (Milk Of Magnesia) 30 ml PO HS PRN PRN Reason: Constipation Naproxen (Naproxen) 500 mg PO Q12 [facility] Stop: 03/23/18 09:00 Last Admin: 03/18/18 21:03 Dose: 500 mg Risperidone (Risperdal M-Tab) 1 mg PO BID [facility] Last Admin: 03/18/18 16:54 Dose: 1 mg - Labs Labs: 03/18/18 18:55 03/18/18 19:55 Assessment and Plan (1) Dementia with behavioral disturbance Status: Acute (2) Hypothyroidism (acquired) Status: Acute (3) Psychosis Status: Acute
[2018-03-19] MEDS: Levothyroxine 75 MCG TAB PO SCH (06:07)
[2018-03-19] MEDS: Risperidone M tab 1 MG PO SCH ×2 (08:59→17:12)
[2018-03-19] MEDS: Naproxen 500 MG TAB PO SCH ×2 (08:59→21:14)
--- NOTE | 2018-03-19 10:01 | PCM.PYCHPN ---
Psychiatric Progress Note - Psychiatric Progress Note Patient seen today, length of contact: Pt evaluated, case discussed w/ team, chart reviewed Patient Chief Complaint: I am fine today Problems Identified/Issues Discussed: pt on evaluation,seen in bed smiling, cooperative reported feeling well, no behavioral disturbances reported by staff, compliant with medications, denied S/H I denied perceptual disturbances DSM 5 Symptoms Update: major neurocognitive disorder Medication Change: No Medical Record Reviewed: Yes Mental Status Examination - Cognitive Function Orientation: Person, Place, Time Memory: Impaired Concentration: Poor Association: Loose Fund of Knowledge: Poor - Mood Mood: Neutral - Affect Affect: Broad - Speech Speech: Appropriate - Formal Thought Process Formal Thought Process: Circumstantial - Suicidal Ideation Suicidal Ideation: No - Homicidal Ideation Homicidal Ideation: No Goal/Treatment Plan - Goal/Treatment Plan Need for Continued Stay: Discharge may exacerbated symptoms, Severe functional impairment Progress Toward Problem(s) and Goals/Treatment Plan: continue current management supportive therapy Estimated Date of D/C: 03/25/18
[2018-03-19] MEDS: Aztreonam 1 GM in Sodium Chloride 0.9% 100 ML IVPB SCH ×2 (11:00→21:05)
--- NOTE | 2018-03-19 22:59 | CP.PCM.PN ---
Subjective - Date & Time of Evaluation Date of Evaluation: 03/19/18 Time of Evaluation: 17:10 - Subjective Subjective: Seen and examined at the bedside. Left knee and leg swelling has relatively decreased. Ultrasound venous Doppler ruled out DVT. Denies fever or chills. ID consulted and pending input. Objective - Vital Signs/Intake and Output Vital Signs (last 24 hours): Temp Pulse Resp BP Pulse Ox 98.1 F 82 20 111/59 L 98 03/19/18 16:30 03/19/18 16:30 03/19/18 16:30 03/19/18 16:30 02/17/18 02:07 - Medications Medications: Current Medications Acetaminophen (Tylenol 325mg Tab) 650 mg PO Q4 PRN PRN Reason: Pain, moderate (4-7) Last Admin: 03/18/18 00:45 Dose: 650 mg Al Hydrox/Mg Hydrox/Simethicone (Maalox Plus 30 Ml) 30 ml PO Q4 PRN PRN Reason: Dyspepsia Last Admin: 02/20/18 20:56 Dose: 30 ml Bismuth Subsalicylate (Pepto-Bismol) 524 mg PO Q4 PRN PRN Reason: Diarrhea Donepezil HCl (Aricept) 5 mg PO HS [facility] Last Admin: 03/19/18 21:13 Dose: 5 mg Fluticasone Propionate (Flonase) 2 spr FRITZ DAILY [facility] Last Admin: 03/19/18 08:58 Dose: 2 spr Vancomycin HCl 1 gm/ Sodium (Chloride) 250 mls @ 125 mls/hr IVPB Q12@0800,2000 [facility] Last Admin: 03/19/18 20:30 Dose: 125 mls/hr Aztreonam 1 gm/ Sodium (Chloride) 100 mls @ 100 mls/hr IVPB Q12H [facility]; Protocol Last Admin: 03/19/18 21:05 Dose: 100 mls/hr Levothyroxine Sodium (Synthroid) 75 mcg PO DAILY@0630 [facility] Last Admin: 03/19/18 06:07 Dose: 75 mcg Magnesium Hydroxide (Milk Of Magnesia) 30 ml PO HS PRN PRN Reason: Constipation Naproxen (Naproxen) 500 mg PO Q12 [facility] Stop: 03/23/18 09:00 Last Admin: 03/19/18 21:14 Dose: 500 mg Risperidone (Risperdal M-Tab) 1 mg PO BID [facility] Last Admin: 03/19/18 17:12 Dose: 1 mg - Labs Labs: 03/18/18 18:55 03/18/18 19:55 - Constitutional Appears: Well - Head Exam Head Exam: ATRAUMATIC, NORMAL INSPECTION, NORMOCEPHALIC - Eye Exam Eye Exam: EOMI, Normal appearance, PERRL Pupil Exam: NORMAL ACCOMODATION, PERRL - ENT Exam ENT Exam: Mucous Membranes Moist, Normal Exam - Neck Exam Neck Exam: Full ROM, Normal Inspection. absent: Lymphadenopathy - Respiratory Exam Respiratory Exam: Clear to Ausculation Bilateral, NORMAL BREATHING PATTERN - Cardiovascular Exam Cardiovascular Exam: REGULAR RHYTHM, +S1, +S2. absent: Murmur - GI/Abdominal Exam GI & Abdominal Exam: Soft, Normal Bowel Sounds. absent: Tenderness - Extremities Exam Extremities Exam: Joint Swelling, Normal Capillary Refill. absent: Pedal Edema Additional comments: Left Knee area Tenderness - Back Exam Back Exam: NORMAL INSPECTION - Neurological Exam Neurological Exam: Alert, Awake, CN II-XII Intact, Normal Gait, Oriented x3 - Psychiatric Exam Psychiatric exam: Normal Affect, Normal Mood - Skin Skin Exam: Dry, Intact, Normal Color, Warm Assessment and Plan (1) Dementia with behavioral disturbance Status: Acute (2) Hypothyroidism (acquired) Status: Acute (3) Psychosis Status: Acute (4) Cellulitis Assessment & Plan: DVT Ruled out Status: Acute (5) Right knee skin infection Status: Acute - Assessment and Plan (Free Text) Plan: IV vancomycin 1 g every 12 Rocephin 1 g IV daily Pain control ID consult CT of left knee.
[2018-03-20] MEDS: Levothyroxine 75 MCG TAB PO SCH (05:44)
[2018-03-20] MEDS: Risperidone M tab 1 MG PO SCH ×2 (08:29→16:10)
[2018-03-20] MEDS: Naproxen 500 MG TAB PO SCH ×2 (08:29→21:13)
--- NOTE | 2018-03-20 08:40 | PCM.PYCHPN ---
Psychiatric Progress Note - Psychiatric Progress Note Patient seen today, length of contact: Pt evaluated, case discussed w/ team, chart reviewed Patient Chief Complaint: Inability to care for self Problems Identified/Issues Discussed: On IV antibiotics for L knee/leg cellulitis. No behavioral issues. Patient reports her mood is stable. She denies acute depression/anxiety. She has been compliant with Risperdal. No adverse effects to medications reported. She understands that she will need longterm placement. Medication Change: No Medical Record Reviewed: Yes Consults ordered or reviewed: Medicine consult, ID consult Mental Status Examination - Cognitive Function Orientation: Person, Place, Time Memory: Impaired Concentration: Poor Association: Loose Fund of Knowledge: Poor Decription of patient's judgement and insights: Poor I/J due to chronic dementia - Mood Mood: Neutral - Affect Affect: Broad - Speech Speech: Appropriate - Formal Thought Process Formal Thought Process: Circumstantial Psychotic Thoughts and Behaviors: Denies AH/VH - Suicidal Ideation Suicidal Ideation: No - Homicidal Ideation Homicidal Ideation: No Goal/Treatment Plan - Goal/Treatment Plan Need for Continued Stay: Discharge may exacerbated symptoms, Severe functional impairment Progress Toward Problem(s) and Goals/Treatment Plan: Psychosis NOS, Alzheimer's Dementia without behavioral disturbance; patient is psychiatrically stable for referral for manager long term care placement; pending residential placement -Individual and group therapy -Continue Aricept -Continue Risperdal -Medicine consult re: L knee/leg cellulitis -Psychoeducation -Case discussed w/ POA and patient's PMD -Disposition planning- pending residential placement, see SW re: disposition planning Estimated Date of D/C: 03/25/18
[2018-03-20] MEDS: Aztreonam 1 GM in Sodium Chloride 0.9% 100 ML IVPB SCH ×2 (12:18→21:04)
--- NOTE | 2018-03-20 13:36 | CP.PCM.CON ---
History of Present Illness - History of Present Illness History of Present Illness: 72 year old female was brought to the ED via EMS for psychiatric evaluation. Patient has a history of dementia and Alzheimers with Paranoid Behaviour with refusing to take her medications. Referred for ID eval for swelling and rednesss left knee of recent onset with impaired mobility due to pain on ambulation c/o decreased ROM and swelling Denies fever chills cough SOB or fall Has Hx of PCN allergies Review of Systems - Review of Systems All systems: reviewed and no additional remarkable complaints except - Constitutional Constitutional: As Per HPI - EENT Eyes: absent: As Per HPI, Blind Spots, Blurred Vision, Change in Vision, Decreased Night Vision, Diplopia, Discharge, Dry Eye, Exophthalmos, Floaters, Irritation, Itchy Eyes, Loss of Peripheral Vision, Pain, Photophobia, Requires Corrective Lenses, Sees Flashes, Spots in Vision, Tunnel Vision, Other Visual Disturbances, Loss of Vision, Other Ears: absent: As Per HPI, Decreased Hearing, Ear Discharge, Ear Pain, Tinnitus, Abnormal Hearing, Disequilibrium, Dizziness, Other Nose/Mouth/Throat: absent: As Per HPI, Epistaxis, Nasal Congestion, Nasal Discha rge, Nasal Obstruction, Nasal Trauma, Nose Pain, Post Nasal Drip, Sinus Pain, Sinus Pressure, Bleeding Gums, Change in Voice, Dental Pain, Dry Mouth, Dysphagia, Halitosis, Hoarsness, Lip Swelling, Mouth Lesions, Mouth Pain, Odynophagia, Sore Throat, Throat Swelling, Tongue Swelling, Facial Pain, Neck Pain, Neck Mass, Other - Cardiovascular Cardiovascular: absent: As Per HPI, Acrocyanosis, Chest Pain, Chest Pain at Rest, Chest Pain with Activity, Claudication, Diaphoresis, Dyspnea, Dyspnea on Exertion, Edema, Irregular Heart Rhythm, Pain Radiating to Arm/Neck/Jaw, Leg Edema, Leg Ulcers, Lightheadedness, Orthopnea, Palpitations, Paroxysmal Nocturnal Dyspnea, Pedal Edema, Radiating Pain, Rapid Heart Rate, Slow Heart Rate, Syncope, Other - Respiratory Respiratory: absent: As Per HPI, Cough, Dyspnea, Hemoptysis, Dyspnea on Exertion, Wheezing, Snoring, Stridor, Pain on Inspiration, Chest Congestion, Excessive Mucous Production, Change in Mucous Color, Pain with Coughing, Other - Gastrointestinal Gastrointestinal: absent: As Per HPI, Abdominal Pain, Belching, Bloating, Change in Bowel Habits, Change in Stool Character, Coffee Ground Emesis, Constipation, Cramping, Diarrhea, Dyspepsia, Dysphagia, Early Satiety, Excessive Flatus, Fecal Incontinence, Heartburn, Hematemesis, Hematochezia, Loose Stools, Melena, Nausea, Odynophagia, Temesmus, Vomiting, Other - Genitourinary Genitourinary: absent: As Per HPI, Change in Urinary Stream, Difficulty Urinating, Dysuria, Flank Pain, Hematuria, Pyuria, Nocturia, Urinary Incontinence, Urinary Frequency, Urinary Hesitance, Urinary Urgency, Voiding Freq/Small Amts, Freq UTI, Hx Renal/Bladder Calculi, Hx /Renal Surgery, Bladder Distension, Other - Reproductive: Female Reproductive:Female: absent: As Per HPI, Amenorrhea, Amenorrhea/ Control, C urrently Menstual, Cycle <21 Days, Cycle >35 Days, Cycle Variable, Menses 1-7 Days, Menses >/= 8 Days, Menses Variable, Cycle > 4 Weeks Between, No Menses for 6 Months, Heavy Menses, Light Menses, Normal Menses, Spotting Between Cycles, S/P Hysterectomy, Menopausal, Post Menopausal, Premenarche, Abnormal Vaginal Bleeding, Dysmenorrhea, Dyspareunia, Genital Lesions, Genital Pruritis, Pelvic Pain, Prolapse Symptoms, Sexual Dysfunction, Vaginal Discharge, Vaginal Dryness, Vaginal Odor, Vaginal Pruritis, Other - Menstruation Menstruation: absent: As Per HPI, Amenorrhea, Amenorrhea/ Control, Currently Menstual, Cycle <21 Days, Cycle >35 Days, Cycle Variable, Menses 1-7 Days, Menses >/= 8 Days, Menses Variable, Cycle > 4 Weeks Between, No Menses for 6 Months, Heavy Menses, Light Menses, Normal Menses, Spotting Between Cycles, S/P Hysterectomy, Menopausal, Post Menopausal, Premenarche, Abnormal Vaginal Bleeding, Dysmenorrhea, Other - Musculoskeletal Musculoskeletal: As Per HPI - Integumentary Integumentary: absent: As Per HPI, Acne, Alopecia, Bleeding Lesions, Change in Hair, Change in Nails, Change in Pigmentation, Changing Lesions, Dry Skin, Erythema, Furuncle, Hirsutism, Lesions, New Lesions, Non-Healing Lesions, Photosensitivity, Pruritus, Rash, Skin Pain, Skin Ulcer, Sores, Striae, Swelling, Unusual Bruising, Wounds, Jaundice, Other - Neurological Neurological: absent: As Per HPI, Abnormal Gait, Abnormal Hearing, Abnormal Movements, Abnormal Speech, Behavioral Changes, Burning Sensations, Confusion, Convulsions, Disequilibrium, Dizziness, Numbness, Focal Weakness, Frequent Falls, Headaches, Lack of Coordination, Loss of Vision, Memory Loss, Paresthesias, Radicular Pain, Restless Legs, Sensory Deficit, Syncope, Tingling, Tremor, Vertigo, Weakness, Other Visual Disturbances, Other - Psychiatric Psychiatric: As Per HPI - Endocrine Endocrine: absent: As Per HPI, Change in Body Appearance, Change in Libido, Cold Intolorance, Deepening of Voice, Excessive Sweating, Fatigue, Flushing, Heat Intolorance, Increase in Ring/Shoe/Hat Size, Palpitations, Polydipsia, Polyphagia, Polyuria, Other - Hematologic/Lymphatic Hematologic: absent: As Per HPI, Easy Bleeding, Easy Bruising, Lymphadenopathy, Other Past Patient History - Past Medical History & Family History Past Medical History?: Yes Past Family History: Reviewed and not pertinent - Past Social History Smoking Status: Never Smoked Alcohol: None Drugs: Denies - CARDIAC Hx Cardiac Disorders: No Hx Hypercholesterolemia: Yes Hx Hypertension: No - PULMONARY Hx Tuberculosis: No - NEUROLOGICAL Hx Alzheimer's Disease: Yes Hx Dementia: Yes - HEENT Hx HEENT Problems: No - RENAL Hx Chronic Kidney Disease: No - ENDOCRINE/METABOLIC Hx Endocrine Disorders: No Hx Hypothyroidism: Yes - HEMATOLOGICAL/ONCOLOGICAL Hx Anemia: Yes - INTEGUMENTARY Hx Dermatological Problems: No - MUSCULOSKELETAL/RHEUMATOLOGICAL Hx Musculoskeletal Disorders: No Hx Falls: No - GASTROINTESTINAL Hx Gastrointestinal Disorders: No - GENITOURINARY/GYNECOLOGICAL Hx Sexually Transmitted Disorders: No - PSYCHIATRIC Hx Substance Use: No - SURGICAL HISTORY Hx Surgeries: No - ANESTHESIA Hx Anesthesia: No Meds Allergies/Adverse Reactions: Allergies Allergy/AdvReac Type Severity Reaction Status Date / Time cortisone Allergy RASH Verified 02/16/18 19:58 Penicillins Allergy REDNESS Verified 02/16/18 19:58 - Medications Medications: Current Medications Acetaminophen (Tylenol 325mg Tab) 650 mg PO Q4 PRN PRN Reason: Pain, moderate (4-7) Last Admin: 03/18/18 00:45 Dose: 650 mg Al Hydrox/Mg Hydrox/Simethicone (Maalox Plus 30 Ml) 30 ml PO Q4 PRN PRN Reason: Dyspepsia Last Admin: 02/20/18 20:56 Dose: 30 ml Bismuth Subsalicylate (Pepto-Bismol) 524 mg PO Q4 PRN PRN Reason: Diarrhea Donepezil HCl (Aricept) 5 mg PO HS [facility] Last Admin: 03/19/18 21:13 Dose: 5 mg Fluticasone Propionate (Flonase) 2 spr FRITZ DAILY [facility] Last Admin: 03/20/18 08:30 Dose: 2 spr Vancomycin HCl 1 gm/ Sodium (Chloride) 250 mls @ 125 mls/hr IVPB Q12@0800,2000 [facility] Last Admin: 03/20/18 07:50 Dose: 125 mls/hr Aztreonam 1 gm/ Sodium (Chloride) 100 mls @ 100 mls/hr IVPB Q12H [facility]; Protocol Last Admin: 03/20/18 12:18 Dose: 100 mls/hr Levothyroxine Sodium (Synthroid) 75 mcg PO DAILY@0630 [facility] Last Admin: 03/20/18 05:44 Dose: 75 mcg Magnesium Hydroxide (Milk Of Magnesia) 30 ml PO HS PRN PRN Reason: Constipation Naproxen (Naproxen) 500 mg PO Q12 [facility] Stop: 03/23/18 09:00 Last Admin: 03/20/18 08:29 Dose: 500 mg Risperidone (Risperdal M-Tab) 1 mg PO BID [facility] Last Admin: 03/20/18 08:29 Dose: 1 mg Physical Exam - Constitutional Appears: Non-toxic, No Acute Distress, Confused, Chronically Ill - Head Exam Head Exam: ATRAUMATIC, NORMAL INSPECTION, NORMOCEPHALIC - Eye Exam Eye Exam: PERRL. absent: Scleral icterus - ENT Exam ENT Exam: Mucous Membranes Dry, Normal External Ear Exam - Neck Exam Neck exam: Negative for: Lymphadenopathy - Respiratory Exam Respiratory Exam: Decreased Breath Sounds, Clear to Auscultation Bilateral - Cardiovascular Exam Cardiovascular Exam: REGULAR RHYTHM, +S1, +S2 - GI/Abdominal Exam GI & Abdominal Exam: Diminished Bowel Sounds, Soft. absent: Tenderness - Rectal Exam Rectal Exam: Deferred - Exam Exam: NORMAL INSPECTION - Extremities Exam Extremities exam: Positive for: joint swelling, tenderness, pedal pulses present. Negative for: calf tenderness, normal inspection, pedal edema Additional comments: swelling left knee with mild decreased ROM and difficulty ambulating - Back Exam Back exam: absent: CVA tenderness (L), CVA tenderness (R), paraspinal tenderness - Neurological Exam Neurological exam: Alert, CN II-XII Intact, Oriented x3, Reflexes Normal - Psychiatric Exam Psychiatric exam: Depressed - Skin Skin Exam: Dry, Intact Results - Vital Signs Recent Vital Signs: Last Vital Signs Temp 97.9 F 03/20/18 06:00 Pulse 81 03/20/18 06:00 Resp 18 03/20/18 06:00 BP 114/71 03/20/18 06:00 Pulse Ox 98 02/17/18 02:07 - Labs Result Diagrams: 03/18/18 18:55 03/18/18 19:55 Assessment & Plan (1) Dementia with behavioral disturbance Status: Acute Priority: Medium (2) Hypothyroidism (acquired) Status: Acute Priority: Low (3) Psychosis Status: Acute - Assessment and Plan (Free Text) Assessment: Elderly female with dementia and hypothyroidism is admitted for depression with psychotic features is now referred for ID evaluation of left knee cellulitis Has osteoarthritic changes , mild effusion and pain on motion with decreased ROM Doubt septic joint but if no improvement may need arthrocentesis Started on empiric IV antibiotics pending CT left knee to r/o derangement, fracture other Venous doppler is negative Cont DVT prophylaxis Cont IV antibiotics for now May need ortho eval
--- NOTE | 2018-03-20 17:12 | CT ---
Indication: Left Knee and leg swelling and Pain Noncontrast CT of the left knee Comparison: None available Technique: Noncontrast axial images of the left knee. Sagittal and coronal reformatted images were generated and reviewed. This CT exam was performed using 1 or more of the falling dose reduction techniques: Automated exposure control, adjustment of the MAA and/or kV according to patient size, and/or use of iterative reconstruction technique. Total exam DLP: 295.58 Findings: Small suprapatellar joint effusion. No acute displaced fracture. No dislocation. Minimal soft tissue edema. No focal fluid collection. No evidence of radiopaque foreign body. Impression: Minimal soft tissue edema. Small suprapatellar joint effusion.
[2018-03-21] MEDS: Levothyroxine 75 MCG TAB PO SCH (05:48)
--- NOTE | 2018-03-21 07:35 | CP.PCM.PN ---
Subjective - Date & Time of Evaluation Date of Evaluation: 03/21/18 Time of Evaluation: 12:00 - Subjective Subjective: Seen and examined the bedside. The swelling and tenderness. DVT ruled out. CT scan of the knee and leg is done, and pending results. No fever or chills. Objective - Vital Signs/Intake and Output Vital Signs (last 24 hours): Temp Pulse Resp BP Pulse Ox 98.8 F 79 18 131/81 98 03/21/18 05:43 03/21/18 05:43 03/21/18 05:43 03/21/18 05:43 02/17/18 02:07 - Medications Medications: Current Medications Acetaminophen (Tylenol 325mg Tab) 650 mg PO Q4 PRN PRN Reason: Pain, moderate (4-7) Last Admin: 03/18/18 00:45 Dose: 650 mg Al Hydrox/Mg Hydrox/Simethicone (Maalox Plus 30 Ml) 30 ml PO Q4 PRN PRN Reason: Dyspepsia Last Admin: 02/20/18 20:56 Dose: 30 ml Bismuth Subsalicylate (Pepto-Bismol) 524 mg PO Q4 PRN PRN Reason: Diarrhea Donepezil HCl (Aricept) 5 mg PO HS [facility] Last Admin: 03/20/18 21:13 Dose: 5 mg Fluticasone Propionate (Flonase) 2 spr FRITZ DAILY [facility] Last Admin: 03/20/18 08:30 Dose: 2 spr Vancomycin HCl 1 gm/ Sodium (Chloride) 250 mls @ 125 mls/hr IVPB Q12@1000,2200 [facility] Aztreonam 1 gm/ Sodium (Chloride) 100 mls @ 100 mls/hr IVPB Q12@0800,2000 [facility]; Protocol Levothyroxine Sodium (Synthroid) 75 mcg PO DAILY@0630 [facility] Last Admin: 03/21/18 05:48 Dose: 75 mcg Magnesium Hydroxide (Milk Of Magnesia) 30 ml PO HS PRN PRN Reason: Constipation Naproxen (Naproxen) 500 mg PO Q12 [facility] Stop: 03/23/18 09:00 Last Admin: 03/20/18 21:13 Dose: 500 mg Risperidone (Risperdal M-Tab) 1 mg PO BID [facility] Last Admin: 03/20/18 16:10 Dose: 1 mg - Labs Labs: 03/18/18 18:55 03/18/18 19:55 Assessment and Plan (1) Dementia with behavioral disturbance Status: Acute (2) Hypothyroidism (acquired) Status: Acute (3) Psychosis Status: Acute (4) Cellulitis Status: Acute (5) Right knee skin infection Status: Acute - Assessment and Plan (Free Text) Plan: Continue current care
[2018-03-21] MEDS: Aztreonam 1 GM in Sodium Chloride 0.9% 100 ML IVPB SCH ×2 (08:18→20:11)
[2018-03-21] MEDS: Naproxen 500 MG TAB PO SCH ×2 (08:20→21:17)
[2018-03-21] MEDS: Risperidone M tab 1 MG PO SCH ×2 (08:23→17:16)
--- NOTE | 2018-03-21 08:39 | PCM.PYCHPN ---
Psychiatric Progress Note - Psychiatric Progress Note Patient seen today, length of contact: Pt evaluated, case discussed w/ team, chart reviewed Patient Chief Complaint: Inability to care for self Problems Identified/Issues Discussed: No behavioral issues. Patient reports her mood is stable. She denies acute depression/anxiety. She has been compliant with Risperdal. No adverse effects to medications reported. She understands that she will need alf placem ent. Medication Change: No Medical Record Reviewed: Yes Consults ordered or reviewed: Medicine consult, ID consult Mental Status Examination - Cognitive Function Orientation: Person, Place, Time Memory: Impaired Concentration: Poor Association: Loose Fund of Knowledge: Poor Decription of patient's judgement and insights: Poor I/J due to chronic dementia - Mood Mood: Neutral - Affect Affect: Broad - Speech Speech: Appropriate - Formal Thought Process Formal Thought Process: Circumstantial Psychotic Thoughts and Behaviors: Denies AH/VH - Suicidal Ideation Suicidal Ideation: No - Homicidal Ideation Homicidal Ideation: No Goal/Treatment Plan - Goal/Treatment Plan Need for Continued Stay: Discharge may exacerbated symptoms, Severe functional impairment Progress Toward Problem(s) and Goals/Treatment Plan: Psychosis NOS, Alzheimer's Dementia without behavioral disturbance; patient is psychiatrically stable for referral for alf placement; pending group home placement -Individual and group therapy -Continue Aricept -Continue Risperdal -Medicine consult + ID consult re: L knee/leg cellulitis; patient on IV antibiotics -Psychoeducation -Case discussed w/ POA and patient's PMD -Disposition planning- pending group home placement, see SW re: disposition planning Estimated Date of D/C: 03/25/18
[2018-03-22] MEDS: Levothyroxine 75 MCG TAB PO SCH (05:42)
--- NOTE | 2018-03-22 07:47 | PCM.PYCHPN ---
Psychiatric Progress Note - Psychiatric Progress Note Patient seen today, length of contact: Pt evaluated, case discussed w/ team, chart reviewed Patient Chief Complaint: Inability to care for self Problems Identified/Issues Discussed: No behavioral issues. Patient reports her mood is stable. She denies acute depression/anxiety. She has been compliant with Risperdal. No adverse effects to medications reported. She understands that she will need senior living placem ent. Patient continues to receive IV antibiotics. Medication Change: No Medical Record Reviewed: Yes Consults ordered or reviewed: Medicine consult, ID consult Mental Status Examination - Cognitive Function Orientation: Person, Place, Time Memory: Impaired Concentration: Poor Association: Loose Fund of Knowledge: Poor Decription of patient's judgement and insights: Poor I/J due to chronic dementia - Mood Mood: Neutral - Affect Affect: Broad - Speech Speech: Appropriate - Formal Thought Process Formal Thought Process: Circumstantial Psychotic Thoughts and Behaviors: Denies AH/VH - Suicidal Ideation Suicidal Ideation: No - Homicidal Ideation Homicidal Ideation: No Goal/Treatment Plan - Goal/Treatment Plan Need for Continued Stay: Discharge may exacerbated symptoms, Severe functional impairment Progress Toward Problem(s) and Goals/Treatment Plan: Psychosis NOS, Alzheimer's Dementia without behavioral disturbance; patient is psychiatrically stable 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
[2018-03-22] MEDS: Naproxen 500 MG TAB PO SCH ×2 (09:30→21:14)
[2018-03-22] MEDS: Risperidone M tab 1 MG PO SCH ×2 (09:32→17:36)
[2018-03-22] MEDS: Aztreonam 1 GM in Sodium Chloride 0.9% 100 ML IVPB SCH ×2 (09:32→20:08)
--- NOTE | 2018-03-22 10:11 | CP.PCM.PN ---
Subjective - Date & Time of Evaluation Date of Evaluation: 03/22/18 Time of Evaluation: 07:00 - Subjective Subjective: CT and Vanco level noted cont rx cellulitis ortho eval pending Objective - Vital Signs/Intake and Output Vital Signs (last 24 hours): Temp Pulse Resp BP Pulse Ox 98.1 F 86 18 101/64 98 03/22/18 05:57 03/22/18 05:57 03/22/18 05:57 03/22/18 05:57 02/17/18 02:07 - Medications Medications: Current Medications Acetaminophen (Tylenol 325mg Tab) 650 mg PO Q4 PRN PRN Reason: Pain, moderate (4-7) Last Admin: 03/18/18 00:45 Dose: 650 mg Al Hydrox/Mg Hydrox/Simethicone (Maalox Plus 30 Ml) 30 ml PO Q4 PRN PRN Reason: Dyspepsia Last Admin: 02/20/18 20:56 Dose: 30 ml Bismuth Subsalicylate (Pepto-Bismol) 524 mg PO Q4 PRN PRN Reason: Diarrhea Donepezil HCl (Aricept) 5 mg PO HS [facility] Last Admin: 03/21/18 21:17 Dose: 5 mg Fluticasone Propionate (Flonase) 2 spr FRITZ DAILY [facility] Last Admin: 03/22/18 09:29 Dose: 2 spr Vancomycin HCl 1 gm/ Sodium (Chloride) 250 mls @ 125 mls/hr IVPB Q12@1000,2200 [facility] Last Admin: 03/21/18 22:24 Dose: 125 mls/hr Aztreonam 1 gm/ Sodium (Chloride) 100 mls @ 100 mls/hr IVPB Q12@0800,2000 [facility]; Protocol Last Admin: 03/22/18 09:32 Dose: 100 mls/hr Levothyroxine Sodium (Synthroid) 75 mcg PO DAILY@0630 [facility] Last Admin: 03/22/18 05:42 Dose: 75 mcg Magnesium Hydroxide (Milk Of Magnesia) 30 ml PO HS PRN PRN Reason: Constipation Naproxen (Naproxen) 500 mg PO Q12 [facility] Stop: 03/23/18 09:00 Last Admin: 03/22/18 09:30 Dose: 500 mg Risperidone (Risperdal M-Tab) 1 mg PO BID [facility] Last Admin: 03/22/18 09:32 Dose: 1 mg - Labs Labs: 03/18/18 18:55 03/18/18 19:55 Assessment and Plan (1) Dementia with behavioral disturbance Status: Acute (2) Hypothyroidism (acquired) Status: Acute (3) Psychosis Status: Acute
--- NOTE | 2018-03-22 17:11 | CP.PCM.PN ---
Subjective - Date & Time of Evaluation Date of Evaluation: 03/21/18 Time of Evaluation: 16:55 Objective - Vital Signs/Intake and Output Vital Signs (last 24 hours): Temp Pulse Resp BP Pulse Ox 97.5 F L 75 18 131/72 98 03/22/18 16:16 03/22/18 16:16 03/22/18 16:16 03/22/18 16:16 02/17/18 02:07 - Medications Medications: Current Medications Acetaminophen (Tylenol 325mg Tab) 650 mg PO Q4 PRN PRN Reason: Pain, moderate (4-7) Last Admin: 03/18/18 00:45 Dose: 650 mg Al Hydrox/Mg Hydrox/Simethicone (Maalox Plus 30 Ml) 30 ml PO Q4 PRN PRN Reason: Dyspepsia Last Admin: 02/20/18 20:56 Dose: 30 ml Bismuth Subsalicylate (Pepto-Bismol) 524 mg PO Q4 PRN PRN Reason: Diarrhea Donepezil HCl (Aricept) 5 mg PO HS [facility] Last Admin: 03/21/18 21:17 Dose: 5 mg Fluticasone Propionate (Flonase) 2 spr FRITZ DAILY [facility] Last Admin: 03/22/18 09:29 Dose: 2 spr Aztreonam 1 gm/ Sodium (Chloride) 100 mls @ 100 mls/hr IVPB Q12@0800,2000 [facility]; Protocol Last Admin: 03/22/18 09:32 Dose: 100 mls/hr Vancomycin HCl 1 gm/ Sodium (Chloride) 250 mls @ 166.667 mls/hr IVPB Q24H [facility]; Protocol Last Admin: 03/22/18 10:38 Dose: 166.667 mls/hr Levothyroxine Sodium (Synthroid) 75 mcg PO DAILY@0630 [facility] Last Admin: 03/22/18 05:42 Dose: 75 mcg Magnesium Hydroxide (Milk Of Magnesia) 30 ml PO HS PRN PRN Reason: Constipation Naproxen (Naproxen) 500 mg PO Q12 [facility] Stop: 03/23/18 09:00 Last Admin: 03/22/18 09:30 Dose: 500 mg Risperidone (Risperdal M-Tab) 1 mg PO BID [facility] Last Admin: 03/22/18 09:32 Dose: 1 mg - Labs Labs: 03/18/18 18:55 03/18/18 19:55 Assessment and Plan (1) Dementia with behavioral disturbance Status: Acute (2) Hypothyroidism (acquired) Status: Acute (3) Psychosis Status: Acute (4) Cellulitis Status: Acute (5) Right knee skin infection Status: Acute
--- NOTE | 2018-03-22 17:11 | CP.PCM.PN ---
Subjective - Date & Time of Evaluation Date of Evaluation: 03/22/18 Time of Evaluation: 16:45 - Subjective Subjective: Seen and examined at the bed side. Knee swelling and pain has subsided. D/w Dr. Gonzalez, ID, and Septic Arthritis less likely. Will D/c Patient on Levofloxacin 500mg po daily for 5days. No Other complaint. Objective - Vital Signs/Intake and Output Vital Signs (last 24 hours): Temp Pulse Resp BP Pulse Ox 97.5 F L 75 18 131/72 98 03/22/18 16:16 03/22/18 16:16 03/22/18 16:16 03/22/18 16:16 02/17/18 02:07 - Medications Medications: Current Medications Acetaminophen (Tylenol 325mg Tab) 650 mg PO Q4 PRN PRN Reason: Pain, moderate (4-7) Last Admin: 03/18/18 00:45 Dose: 650 mg Al Hydrox/Mg Hydrox/Simethicone (Maalox Plus 30 Ml) 30 ml PO Q4 PRN PRN Reason: Dyspepsia Last Admin: 02/20/18 20:56 Dose: 30 ml Bismuth Subsalicylate (Pepto-Bismol) 524 mg PO Q4 PRN PRN Reason: Diarrhea Donepezil HCl (Aricept) 5 mg PO HS [facility] Last Admin: 03/21/18 21:17 Dose: 5 mg Fluticasone Propionate (Flonase) 2 spr FRITZ DAILY [facility] Last Admin: 03/22/18 09:29 Dose: 2 spr Aztreonam 1 gm/ Sodium (Chloride) 100 mls @ 100 mls/hr IVPB Q12@0800,2000 [facility]; Protocol Last Admin: 03/22/18 09:32 Dose: 100 mls/hr Vancomycin HCl 1 gm/ Sodium (Chloride) 250 mls @ 166.667 mls/hr IVPB Q24H [facility]; Protocol Last Admin: 03/22/18 10:38 Dose: 166.667 mls/hr Levothyroxine Sodium (Synthroid) 75 mcg PO DAILY@0630 [facility] Last Admin: 03/22/18 05:42 Dose: 75 mcg Magnesium Hydroxide (Milk Of Magnesia) 30 ml PO HS PRN PRN Reason: Constipation Naproxen (Naproxen) 500 mg PO Q12 [facility] Stop: 03/23/18 09:00 Last Admin: 03/22/18 09:30 Dose: 500 mg Risperidone (Risperdal M-Tab) 1 mg PO BID [facility] Last Admin: 03/22/18 09:32 Dose: 1 mg - Labs Labs: 03/18/18 18:55 03/18/18 19:55 Assessment and Plan (1) Dementia with behavioral disturbance Status: Acute (2) Hypothyroidism (acquired) Status: Acute (3) Psychosis Status: Acute (4) Cellulitis Status: Acute (5) Right knee skin infection Status: Acute - Assessment and Plan (Free Text) Plan: D/c on Levaquin 500mg Po daily for 5 days.
[2018-03-23] MEDS: Levothyroxine 75 MCG TAB PO SCH (05:54)
[2018-03-23] MEDS: Risperidone M tab 1 MG PO SCH (08:28)
[2018-03-23] MEDS: Naproxen 500 MG TAB PO SCH (08:28)
[2018-03-23] MEDS: Aztreonam 1 GM in Sodium Chloride 0.9% 100 ML IVPB SCH ×2 (08:42→20:23)
--- NOTE | 2018-03-23 11:14 | PCM.PYCHPN ---
Psychiatric Progress Note - Psychiatric Progress Note Patient seen today, length of contact: Pt evaluated, case discussed w/ team, chart reviewed Patient Chief Complaint: Inability to care for self Problems Identified/Issues Discussed: No behavioral issues overnight. Patient reports her mood is stable. She denies acute depression/anxiety. She has been compliant with Risperdal. No adverse effects to medications reported. She understands that she will need prison placement. Patient continues to receive IV antibiotics. Medication Change: No Medical Record Reviewed: Yes Consults ordered or reviewed: Medicine consult, ID consult Mental Status Examination - Cognitive Function Orientation: Person, Place, Time Memory: Impaired Concentration: Poor Association: Loose Fund of Knowledge: Poor Decription of patient's judgement and insights: Poor I/J due to chronic dementia - Mood Mood: Neutral - Affect Affect: Broad - Speech Speech: Appropriate - Formal Thought Process Formal Thought Process: Circumstantial Psychotic Thoughts and Behaviors: Denies AH/VH - Suicidal Ideation Suicidal Ideation: No - Homicidal Ideation Homicidal Ideation: No Goal/Treatment Plan - Goal/Treatment Plan Need for Continued Stay: Discharge may exacerbated symptoms, Severe functional impairment Progress Toward Problem(s) and Goals/Treatment Plan: Psychosis NOS, Alzheimer's Dementia without behavioral disturbance; patient is psychiatrically stable for 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
--- NOTE | 2018-03-23 12:55 | CP.PCM.PN ---
Subjective - Date & Time of Evaluation Date of Evaluation: 03/23/18 Time of Evaluation: 08:00 - Subjective Subjective: swelling less no fever Alert NAD Objective - Vital Signs/Intake and Output Vital Signs (last 24 hours): Temp Pulse Resp BP Pulse Ox 97.5 F L 80 20 118/74 98 03/23/18 06:00 03/23/18 06:00 03/23/18 06:00 03/23/18 06:00 02/17/18 02:07 - Medications Medications: Current Medications Acetaminophen (Tylenol 325mg Tab) 650 mg PO Q4 PRN PRN Reason: Pain, moderate (4-7) Last Admin: 03/18/18 00:45 Dose: 650 mg Al Hydrox/Mg Hydrox/Simethicone (Maalox Plus 30 Ml) 30 ml PO Q4 PRN PRN Reason: Dyspepsia Last Admin: 02/20/18 20:56 Dose: 30 ml Bismuth Subsalicylate (Pepto-Bismol) 524 mg PO Q4 PRN PRN Reason: Diarrhea Donepezil HCl (Aricept) 5 mg PO HS [facility] Last Admin: 03/22/18 21:14 Dose: 5 mg Aztreonam 1 gm/ Sodium (Chloride) 100 mls @ 100 mls/hr IVPB Q12@0800,2000 [facility]; Protocol Last Admin: 03/23/18 08:42 Dose: 100 mls/hr Vancomycin HCl 1 gm/ Sodium (Chloride) 250 mls @ 166.667 mls/hr IVPB Q24H [facility]; Protocol Last Admin: 03/23/18 11:11 Dose: 166.667 mls/hr Levothyroxine Sodium (Synthroid) 75 mcg PO DAILY@0630 [facility] Last Admin: 03/23/18 05:54 Dose: 75 mcg Magnesium Hydroxide (Milk Of Magnesia) 30 ml PO HS PRN PRN Reason: Constipation Risperidone (Risperdal Tab) 1 mg PO BID [facility] - Labs Labs: 03/18/18 18:55 03/18/18 19:55 - Constitutional Appears: Non-toxic, Chronically Ill - Head Exam Head Exam: ATRAUMATIC, NORMAL INSPECTION, NORMOCEPHALIC - Eye Exam Eye Exam: EOMI, Normal appearance, PERRL Pupil Exam: NORMAL ACCOMODATION, PERRL - ENT Exam ENT Exam: Mucous Membranes Moist, Normal Exam - Neck Exam Neck Exam: Full ROM, Normal Inspection. absent: Lymphadenopathy - Respiratory Exam Respiratory Exam: Clear to Ausculation Bilateral, NORMAL BREATHING PATTERN - Cardiovascular Exam Cardiovascular Exam: REGULAR RHYTHM, +S1, +S2. absent: Murmur - GI/Abdominal Exam GI & Abdominal Exam: Soft, Normal Bowel Sounds. absent: Tenderness - Rectal Exam Rectal Exam: NORMAL INSPECTION - Extremities Exam Extremities Exam: Full ROM, Normal Capillary Refill, Normal Inspection. absent: Joint Swelling, Pedal Edema - Back Exam Back Exam: NORMAL INSPECTION - Neurological Exam Neurological Exam: Alert, Awake, CN II-XII Intact, Normal Gait, Oriented x3 - Psychiatric Exam Psychiatric exam: Normal Affect, Normal Mood - Skin Skin Exam: Dry, Intact, Normal Color, Warm Assessment and Plan (1) Dementia with behavioral disturbance Status: Acute (2) Hypothyroidism (acquired) Status: Acute (3) Psychosis Status: Acute - Assessment and Plan (Free Text) Assessment: resolving cellulitis- ok to d/c on PO rx no need for joint aspiration
[2018-03-24] MEDS: Levothyroxine 75 MCG TAB PO SCH (05:41)
[2018-03-24] MEDS: Aztreonam 1 GM in Sodium Chloride 0.9% 100 ML IVPB SCH (09:18)
--- NOTE | 2018-03-24 09:28 | PCM.PYCHPN ---
Psychiatric Progress Note - Psychiatric Progress Note Patient seen today, length of contact: Pt evaluated, case discussed w/ team, chart reviewed Patient Chief Complaint: Inability to care for self Problems Identified/Issues Discussed: Patient reports her mood is stable. She denies acute depression/anxiety. She has been compliant with Risperdal. No adverse effects to medications reported. She understands that she will need plant wrapper placement. Patient now on PO antibiotics. Medication Change: No Medical Record Reviewed: Yes Consults ordered or reviewed: Medicine consult, ID consult Mental Status Examination - Cognitive Function Orientation: Person, Place, Time Memory: Impaired Concentration: Poor Association: Loose Fund of Knowledge: Poor Decription of patient's judgement and insights: Poor I/J due to chronic dementia - Mood Mood: Neutral - Affect Affect: Broad - Speech Speech: Appropriate - Formal Thought Process Formal Thought Process: Circumstantial Psychotic Thoughts and Behaviors: Denies AH/VH - Suicidal Ideation Suicidal Ideation: No - Homicidal Ideation Homicidal Ideation: No Goal/Treatment Plan - Goal/Treatment Plan Need for Continued Stay: Discharge may exacerbated symptoms, Severe functional impairment Progress Toward Problem(s) and Goals/Treatment Plan: Psychosis NOS, Alzheimer's Dementia without behavioral disturbance; patient is psychiatrically stable for referral for detention placement; pending nursing liam e placement -Individual and group therapy -Continue Aricept -Continue Risperdal -Medicine consult + ID consult re: L knee/leg cellulitis; patient on PO antibiotics -Psychoeducation -Case discussed w/ POA and patient's PMD -Disposition planning- pending [facility] placement, see SW re: disposition planning Estimated Date of D/C: 03/25/18
--- NOTE | 2018-03-24 16:32 | CP.PCM.PN ---
Subjective - Date & Time of Evaluation Date of Evaluation: 03/23/18 Time of Evaluation: 12:45 Objective - Vital Signs/Intake and Output Vital Signs (last 24 hours): Temp Pulse Resp BP Pulse Ox 97.8 F 80 19 119/71 98 03/24/18 15:38 03/24/18 15:38 03/24/18 15:38 03/24/18 15:38 02/17/18 02:07 - Medications Medications: Current Medications Acetaminophen (Tylenol 325mg Tab) 650 mg PO Q4 PRN PRN Reason: Pain, moderate (4-7) Last Admin: 03/18/18 00:45 Dose: 650 mg Al Hydrox/Mg Hydrox/Simethicone (Maalox Plus 30 Ml) 30 ml PO Q4 PRN PRN Reason: Dyspepsia Last Admin: 02/20/18 20:56 Dose: 30 ml Bismuth Subsalicylate (Pepto-Bismol) 524 mg PO Q4 PRN PRN Reason: Diarrhea Donepezil HCl (Aricept) 5 mg PO HS [facility] Last Admin: 03/23/18 21:08 Dose: 5 mg Levofloxacin (Levaquin) 500 mg PO DAILY [facility]; Protocol Stop: 03/29/18 23:59 Levothyroxine Sodium (Synthroid) 75 mcg PO DAILY@0630 [facility] Last Admin: 03/24/18 05:41 Dose: 75 mcg Magnesium Hydroxide (Milk Of Magnesia) 30 ml PO HS PRN PRN Reason: Constipation Risperidone (Risperdal Tab) 1 mg PO BID [facility] Last Admin: 03/24/18 09:19 Dose: 1 mg - Labs Labs: 03/18/18 18:55 03/18/18 19:55 Assessment and Plan (1) Dementia with behavioral disturbance Status: Acute (2) Hypothyroidism (acquired) Status: Acute (3) Psychosis Status: Acute (4) Cellulitis Status: Acute (5) Right knee skin infection Status: Acute
--- NOTE | 2018-03-24 23:28 | CP.PCM.PN ---
Subjective - Date & Time of Evaluation Date of Evaluation: 03/24/18 Time of Evaluation: 16:15 Objective - Vital Signs/Intake and Output Vital Signs (last 24 hours): Temp Pulse Resp BP Pulse Ox 97.8 F 80 19 119/71 98 03/24/18 15:38 03/24/18 15:38 03/24/18 15:38 03/24/18 15:38 02/17/18 02:07 - Medications Medications: Current Medications Acetaminophen (Tylenol 325mg Tab) 650 mg PO Q4 PRN PRN Reason: Pain, moderate (4-7) Last Admin: 03/18/18 00:45 Dose: 650 mg Al Hydrox/Mg Hydrox/Simethicone (Maalox Plus 30 Ml) 30 ml PO Q4 PRN PRN Reason: Dyspepsia Last Admin: 02/20/18 20:56 Dose: 30 ml Bismuth Subsalicylate (Pepto-Bismol) 524 mg PO Q4 PRN PRN Reason: Diarrhea Donepezil HCl (Aricept) 5 mg PO HS [facility] Last Admin: 03/24/18 21:16 Dose: 5 mg Levofloxacin (Levaquin) 500 mg PO DAILY [facility]; Protocol Stop: 03/29/18 23:59 Levothyroxine Sodium (Synthroid) 75 mcg PO DAILY@0630 [facility] Last Admin: 03/24/18 05:41 Dose: 75 mcg Magnesium Hydroxide (Milk Of Magnesia) 30 ml PO HS PRN PRN Reason: Constipation Risperidone (Risperdal Tab) 1 mg PO BID [facility] Last Admin: 03/24/18 17:01 Dose: 1 mg - Labs Labs: 03/18/18 18:55 03/18/18 19:55 Assessment and Plan (1) Dementia with behavioral disturbance Status: Acute (2) Hypothyroidism (acquired) Status: Acute (3) Psychosis Status: Acute (4) Cellulitis Status: Acute (5) Right knee skin infection Status: Acute
[2018-03-25] MEDS: Levothyroxine 75 MCG TAB PO SCH (05:59)
[2018-03-25] MEDS: levoFLOXacin 500 MG TAB PO SCH (08:25)
--- NOTE | 2018-03-25 09:12 | PCM.PYCHPN ---
Psychiatric Progress Note - Psychiatric Progress Note Patient seen today, length of contact: Pt evaluated, case discussed w/ team, chart reviewed Patient Chief Complaint: Inability to care for self Problems Identified/Issues Discussed: Patient reports her mood is stable. She denies acute depression/anxiety. She has been compliant with Risperdal. No adverse effects to medications reported. She understands that she will need computer terminal operator placement. Patient now on PO antibiotics. Medication Change: No Medical Record Reviewed: Yes Consults ordered or reviewed: Medicine consult, ID consult Mental Status Examination - Cognitive Function Orientation: Person, Place, Time Memory: Impaired Concentration: Poor Association: Loose Fund of Knowledge: Poor Decription of patient's judgement and insights: Poor I/J due to chronic dementia - Mood Mood: Neutral - Affect Affect: Broad - Speech Speech: Appropriate - Formal Thought Process Formal Thought Process: Circumstantial Psychotic Thoughts and Behaviors: Denies AH/VH - Suicidal Ideation Suicidal Ideation: No - Homicidal Ideation Homicidal Ideation: No Goal/Treatment Plan - Goal/Treatment Plan Need for Continued Stay: Severe functional impairment Progress Toward Problem(s) and Goals/Treatment Plan: Psychosis NOS, Alzheimer's Dementia without behavioral disturbance; patient is psychiatrically stable for referral for jail placement; pending senior care placement -Individual and group therapy -Continue Aricept -Continue Risperdal -Medicine consult + ID consult re: L knee/leg cellulitis; patient on PO antibiotics -Psychoeducation -Case discussed w/ POA and patient's PMD -Disposition planning- pending senior care placement, see RODRICK re: disposition planning
--- NOTE | 2018-03-25 15:39 | PCM.BM ---
Treatment Plan Problems - Problems identified on initial assessmt Problem 2 Date Initiated: 02/18/18 Time Initiated: 10:49 Assessment reference: HP, NA Status: Active Delusions Date Initiated: 02/18/18 Time Initiated: 10:48 Assessment reference: HP, NA Status: Active Altered Memory Time Initiated: 14:58 Treatment assets and liabiliti Patient Assests: ADL independent, negotiates basic needs Patient Liabilities: live alone, relationship conflicts, medical problems, imparied memory - Milieu Protocol Maintain good personal hygiene: daily Encourage regular showers, daily Remind patient to perform daily oral care, daily Assist patient to perform ADL's Conduct patient checks and document Observation sheet: Q15 minutes Maintain personal safety: every shift Educate patient to report safety concerns to staff, every shift Monitor environment for contraband/sharps Medication safety: Monitor for expected outcome, potential side effects: every shift, Assess barriers to learning: every shift, Assess readiness for medication education: every shift Milieu Narrative: Psychosis NOS, Alzheimer's Dementia without behavioral disturbance; patient is psychiatrically stable for referral for nursing home placement; pending [facility] placement -Individual and group therapy -Continue Aricept -Continue Risperdal -Medicine consult + ID consult re: L knee/leg cellulitis; patient on PO antibiotics -Psychoeducation -Case discussed w/ POA and patient's PMD -Disposition planning- pending [facility] placement, see SW re: disposition planning Family Contact Family involvement: Family/SO is involved Family contact: Patient agrees to contact, Family has been contacted by patient, Telephone contact initiated by staff Family contact name: Denise PALAFOX Family contacted how many times per week?: 4 Family contact comment: Academy Director spoke with pt's daughter and PODung, Denise [phone], to gain collateral and discuss treatment and discharge. Denise reported that pt was brought to the ED after pt's other daughter came to visit her apartment and found it to be extremely hot and pt did not have any food in her refrigerator. Denise reported that pt will not speak to her or allow her into her apartment because the pt believes that Denise is poisoning her. Denise reported that pt was residing in [place] near her other daughter and would call Denise and tell her that the other daughter was trying to kill her or say that she attempted to hit her with a car. Pt also called the police in September with fears that someone was attempting to break into her apartment to poison her. Denise reported that the police found all of pt's belongings in boxes. Denise reported that pt has no prior psych history, but was diagnosed with Alzheimer's Disease on Oct 29, 2015 by Jeni Vanegas. Pt's two daughters do not feel that pt is safe to return home and are hoping to have pt placed in Long-term care. - Goals for Treatment Patient goals for treatment: Pt unable to formulate goals due to dementia. Patient's family/SO goals for treatment: Daughter would like pt placed in long- term care where gher dementia can be specially treated. Discharge/Continuing Care - Education Needs Education Needs: Family Medication, Family Diagnosis/Disease Process, Family Coping Skills, Family Aftercare Safety Plan, Patient Medication, Patient Diagnosis/Disease Process, Patient Coping Skills, Patient Aftercare Safety Plan - Discharge Discharge Criteria: Tolerates medication w/o severe side effects, Free of paranoid thoughts, Free of agitation, Reduction of target symptoms [facility]:: [facility] ([facility] - Treatment Team Participation Patient/Family/SO Statement: Psychosis NOS, Alzheimer's Dementia without behavioral disturbance; patient is psychiatrically stable for referral for local intermodal truck driver placement; pending [facility] placement -Individual and group therapy -Continue Aricept -Continue Risperdal -Medicine consult + ID consult re: L knee/leg cellulitis; patient on PO antibiotics -Psychoeducation -Case discussed w/ POA and patient's PMD -Disposition planning- pending [facility] placement, see re: disposition planning Discussed with Family/SO: Yes Was Patient/Family/SO present at Treatment Team Meeting: Yes Treatment Plan Review - Problem Problem 2 Time Initiated: 10:49 Delusions Date Initiated: 02/16/18 Time Initiated: 10:48 Progress toward outcomes: improved (Pt is less paranoid towards her daughter, Denise. Pt reported feeling safe on the unit.) Altered Memory Date Initiated: 02/16/18 Time Initiated: 14:58 Progress toward outcomes: unchanged - Discharge / Continuing Care Discharge to:: [facility] Services: Residential treatment Health Needs: Follow up care/test, Medications/Rx (Pt was seen in tx team for review on 2/8/19. Pt was informed that [facility]TP was found and we are awaiting insurance auth, so pt would be transferred in the near future. Pt's knee pain and antibiotics were discussed. Pt reported that as of today she was "feeling great.")
[2018-03-26] MEDS: Levothyroxine 75 MCG TAB PO SCH (06:03)
--- NOTE | 2018-03-26 08:41 | PCM.PYCHPN ---
Psychiatric Progress Note - Psychiatric Progress Note Patient seen today, length of contact: Pt evaluated, case discussed w/ team, chart reviewed Patient Chief Complaint: Inability to care for self Problems Identified/Issues Discussed: Patient reports her mood is stable. She denies acute depression/anxiety. She has been compliant with Risperdal. No adverse effects to medications reported. She understands that she will need rat exterminator placement. Patient on PO an tibiotics. Medication Change: No Medical Record Reviewed: Yes Consults ordered or reviewed: Medicine consult, ID consult Mental Status Examination - Cognitive Function Orientation: Person, Place, Time Memory: Impaired Concentration: Poor Association: Loose Fund of Knowledge: Poor Decription of patient's judgement and insights: Poor I/J due to chronic dementia - Mood Mood: Neutral - Affect Affect: Broad - Speech Speech: Appropriate - Formal Thought Process Formal Thought Process: Circumstantial Psychotic Thoughts and Behaviors: Denies AH/VH - Suicidal Ideation Suicidal Ideation: No - Homicidal Ideation Homicidal Ideation: No Goal/Treatment Plan - Goal/Treatment Plan Need for Continued Stay: Severe functional impairment Progress Toward Problem(s) and Goals/Treatment Plan: Psychosis NOS, Alzheimer's Dementia without behavioral disturbance; patient is psychiatrically stable for referral for rat exterminator placement; pending intermediate placement -Individual and group therapy -Continue Aricept -Continue Risperdal -Medicine consult + ID consult re: L knee/leg cellulitis; patient on PO antibiotics -Psychoeducation -Case discussed w/ POA and patient's PMD -Disposition planning- pending intermediate placement, see RODRICK re: disposition planning Estimated Date of D/C: 03/28/18
[2018-03-26] MEDS: levoFLOXacin 500 MG TAB PO SCH (08:53)
[2018-03-26 16:52] VITALS: O2SAT 18
--- NOTE | 2018-03-26 22:09 | CP.PCM.PN ---
Subjective - Date & Time of Evaluation Date of Evaluation: 03/25/18 Time of Evaluation: 18:10 Objective - Vital Signs/Intake and Output Vital Signs (last 24 hours): Temp Pulse Resp BP Pulse Ox 98.9 F 87 18 121/77 18 L 03/26/18 16:51 03/26/18 16:51 03/26/18 06:00 03/26/18 16:51 03/26/18 16:51 - Medications Medications: Current Medications Acetaminophen (Tylenol 325mg Tab) 650 mg PO Q4 PRN PRN Reason: Pain, moderate (4-7) Last Admin: 03/26/18 22:05 Dose: 650 mg Al Hydrox/Mg Hydrox/Simethicone (Maalox Plus 30 Ml) 30 ml PO Q4 PRN PRN Reason: Dyspepsia Last Admin: 02/20/18 20:56 Dose: 30 ml Bismuth Subsalicylate (Pepto-Bismol) 524 mg PO Q4 PRN PRN Reason: Diarrhea Donepezil HCl (Aricept) 5 mg PO HS [facility] Last Admin: 03/26/18 21:03 Dose: 5 mg Levofloxacin (Levaquin) 500 mg PO DAILY [facility]; Protocol Stop: 03/29/18 23:59 Last Admin: 03/26/18 08:53 Dose: 500 mg Levothyroxine Sodium (Synthroid) 75 mcg PO DAILY@0630 [facility] Last Admin: 03/26/18 06:03 Dose: 75 mcg Magnesium Hydroxide (Milk Of Magnesia) 30 ml PO HS PRN PRN Reason: Constipation Risperidone (Risperdal Tab) 1 mg PO BID [facility] Last Admin: 03/26/18 17:22 Dose: 1 mg - Labs Labs: 03/18/18 18:55 03/18/18 19:55 Assessment and Plan (1) Dementia with behavioral disturbance Status: Acute (2) Hypothyroidism (acquired) Status: Acute (3) Psychosis Status: Acute (4) Cellulitis Status: Acute (5) Right knee skin infection Status: Acute
--- NOTE | 2018-03-26 22:11 | CP.PCM.PN ---
Subjective - Date & Time of Evaluation Date of Evaluation: 03/26/18 Time of Evaluation: 17:15 Objective - Vital Signs/Intake and Output Vital Signs (last 24 hours): Temp Pulse Resp BP Pulse Ox 98.9 F 87 18 121/77 18 L 03/26/18 16:51 03/26/18 16:51 03/26/18 06:00 03/26/18 16:51 03/26/18 16:51 - Medications Medications: Current Medications Acetaminophen (Tylenol 325mg Tab) 650 mg PO Q4 PRN PRN Reason: Pain, moderate (4-7) Last Admin: 03/26/18 22:05 Dose: 650 mg Al Hydrox/Mg Hydrox/Simethicone (Maalox Plus 30 Ml) 30 ml PO Q4 PRN PRN Reason: Dyspepsia Last Admin: 02/20/18 20:56 Dose: 30 ml Bismuth Subsalicylate (Pepto-Bismol) 524 mg PO Q4 PRN PRN Reason: Diarrhea Donepezil HCl (Aricept) 5 mg PO HS [facility] Last Admin: 03/26/18 21:03 Dose: 5 mg Levofloxacin (Levaquin) 500 mg PO DAILY [facility]; Protocol Stop: 03/29/18 23:59 Last Admin: 03/26/18 08:53 Dose: 500 mg Levothyroxine Sodium (Synthroid) 75 mcg PO DAILY@0630 [facility] Last Admin: 03/26/18 06:03 Dose: 75 mcg Magnesium Hydroxide (Milk Of Magnesia) 30 ml PO HS PRN PRN Reason: Constipation Risperidone (Risperdal Tab) 1 mg PO BID [facility] Last Admin: 03/26/18 17:22 Dose: 1 mg - Labs Labs: 03/18/18 18:55 03/18/18 19:55 Assessment and Plan (1) Dementia with behavioral disturbance Status: Acute (2) Hypothyroidism (acquired) Status: Acute (3) Psychosis Status: Acute (4) Cellulitis Status: Acute (5) Right knee skin infection Status: Acute
[2018-03-27] MEDS: Levothyroxine 75 MCG TAB PO SCH (06:00)
--- NOTE | 2018-03-27 08:31 | PCM.PYCHPN ---
Psychiatric Progress Note - Psychiatric Progress Note Patient seen today, length of contact: Pt evaluated, case discussed w/ team, chart reviewed Patient Chief Complaint: Inability to care for self Problems Identified/Issues Discussed: No new events overnight. Patient reports her mood is stable. She denies acute depression/anxiety. She has been compliant with Risperdal. No adverse effects to medications reported. She understands that she will need [facility] gonzalo cement. Medication Change: No Medical Record Reviewed: Yes Consults ordered or reviewed: Medicine consult, ID consult Mental Status Examination - Cognitive Function Orientation: Person, Place, Time Memory: Impaired Concentration: Poor Association: Loose Fund of Knowledge: Poor Decription of patient's judgement and insights: Poor I/J due to chronic dementia - Mood Mood: Neutral - Affect Affect: Broad - Speech Speech: Appropriate - Formal Thought Process Formal Thought Process: Circumstantial Psychotic Thoughts and Behaviors: Denies AH/VH - Suicidal Ideation Suicidal Ideation: No - Homicidal Ideation Homicidal Ideation: No Goal/Treatment Plan - Goal/Treatment Plan Need for Continued Stay: Severe functional impairment Progress Toward Problem(s) and Goals/Treatment Plan: Psychosis NOS, Alzheimer's Dementia without behavioral disturbance; patient is psychiatrically stable for referral for curriculum writer placement; pending [facility] placement -Individual and group therapy -Continue Aricept -Continue Risperdal -Medicine consult + ID consult re: L knee/leg cellulitis; patient on PO antibiotics -Psychoeducation -Case discussed w/ POA and patient's PMD -Disposition planning- pending [facility] placement, see RODRICK re: disposition planning Estimated Date of D/C: 03/28/18
[2018-03-27] MEDS: levoFLOXacin 500 MG TAB PO SCH (08:55)
[2018-03-28] MEDS: Levothyroxine 75 MCG TAB PO SCH (06:23)
--- NOTE | 2018-03-28 08:41 | PCM.PYCHPN ---
Psychiatric Progress Note - Psychiatric Progress Note Patient seen today, length of contact: Pt evaluated, case discussed w/ team, chart reviewed Patient Chief Complaint: Inability to care for self Problems Identified/Issues Discussed: No new events over the weekend. Patient reports her mood is stable. She denies acute depression/anxiety. She has been compliant with Risperdal. No adverse effects to medications reported. She understands that she will need [facility] placement. Medication Change: No Medical Record Reviewed: Yes Consults ordered or reviewed: Medicine consult, ID consult Mental Status Examination - Cognitive Function Orientation: Person, Place, Time Memory: Impaired Concentration: Poor Association: Loose Fund of Knowledge: Poor Decription of patient's judgement and insights: Poor I/J due to chronic dementia - Mood Mood: Neutral - Affect Affect: Broad - Speech Speech: Appropriate - Formal Thought Process Formal Thought Process: Circumstantial Psychotic Thoughts and Behaviors: Denies AH/VH - Suicidal Ideation Suicidal Ideation: No - Homicidal Ideation Homicidal Ideation: No Goal/Treatment Plan - Goal/Treatment Plan Need for Continued Stay: Severe functional impairment Progress Toward Problem(s) and Goals/Treatment Plan: Psychosis NOS, Alzheimer's Dementia without behavioral disturbance; patient is psychiatrically stable for referral for long term care pharmacist placement; pending fdc placement -Individual and group therapy -Continue Aricept -Continue Risperdal -Medicine consult + ID consult re: L knee/leg cellulitis; patient on PO antibiotics -Psychoeducation -Case discussed w/ POA and patient's PMD -Disposition planning- pending fdc placement, see RODRICK re: disposition planning Estimated Date of D/C: 03/28/18
[2018-03-28] MEDS: levoFLOXacin 500 MG TAB PO SCH (09:02)
--- NOTE | 2018-03-29 00:11 | CP.PCM.PN ---
Subjective - Date & Time of Evaluation Date of Evaluation: 03/27/18 Time of Evaluation: 18:30 Objective - Vital Signs/Intake and Output Vital Signs (last 24 hours): Temp Pulse Resp BP Pulse Ox 96.8 F L 82 20 116/71 18 L 03/28/18 17:45 03/28/18 17:45 03/28/18 17:45 03/28/18 17:45 03/26/18 16:51 - Medications Medications: Current Medications Acetaminophen (Tylenol 325mg Tab) 650 mg PO Q4 PRN PRN Reason: Pain, moderate (4-7) Last Admin: 03/26/18 22:05 Dose: 650 mg Al Hydrox/Mg Hydrox/Simethicone (Maalox Plus 30 Ml) 30 ml PO Q4 PRN PRN Reason: Dyspepsia Last Admin: 02/20/18 20:56 Dose: 30 ml Bismuth Subsalicylate (Pepto-Bismol) 524 mg PO Q4 PRN PRN Reason: Diarrhea Donepezil HCl (Aricept) 5 mg PO HS [facility] Last Admin: 03/28/18 21:29 Dose: 5 mg Levothyroxine Sodium (Synthroid) 75 mcg PO DAILY@0630 [facility] Last Admin: 03/28/18 06:23 Dose: 75 mcg Magnesium Hydroxide (Milk Of Magnesia) 30 ml PO HS PRN PRN Reason: Constipation Risperidone (Risperdal Tab) 1 mg PO BID [facility] Last Admin: 03/28/18 17:52 Dose: 1 mg - Labs Labs: 03/18/18 18:55 03/18/18 19:55 Assessment and Plan (1) Dementia with behavioral disturbance Status: Acute (2) Hypothyroidism (acquired) Status: Acute (3) Psychosis Status: Acute (4) Cellulitis Status: Acute (5) Right knee skin infection Status: Acute
--- NOTE | 2018-03-29 00:12 | CP.PCM.PN ---
Subjective - Date & Time of Evaluation Date of Evaluation: 03/28/18 Time of Evaluation: 18:05 Objective - Vital Signs/Intake and Output Vital Signs (last 24 hours): Temp Pulse Resp BP Pulse Ox 96.8 F L 82 20 116/71 18 L 03/28/18 17:45 03/28/18 17:45 03/28/18 17:45 03/28/18 17:45 03/26/18 16:51 - Medications Medications: Current Medications Acetaminophen (Tylenol 325mg Tab) 650 mg PO Q4 PRN PRN Reason: Pain, moderate (4-7) Last Admin: 03/26/18 22:05 Dose: 650 mg Al Hydrox/Mg Hydrox/Simethicone (Maalox Plus 30 Ml) 30 ml PO Q4 PRN PRN Reason: Dyspepsia Last Admin: 02/20/18 20:56 Dose: 30 ml Bismuth Subsalicylate (Pepto-Bismol) 524 mg PO Q4 PRN PRN Reason: Diarrhea Donepezil HCl (Aricept) 5 mg PO HS [facility] Last Admin: 03/28/18 21:29 Dose: 5 mg Levothyroxine Sodium (Synthroid) 75 mcg PO DAILY@0630 [facility] Last Admin: 03/28/18 06:23 Dose: 75 mcg Magnesium Hydroxide (Milk Of Magnesia) 30 ml PO HS PRN PRN Reason: Constipation Risperidone (Risperdal Tab) 1 mg PO BID [facility] Last Admin: 03/28/18 17:52 Dose: 1 mg - Labs Labs: 03/18/18 18:55 03/18/18 19:55 Assessment and Plan (1) Dementia with behavioral disturbance Status: Acute (2) Hypothyroidism (acquired) Status: Acute (3) Psychosis Status: Acute (4) Cellulitis Status: Acute (5) Right knee skin infection Status: Acute
[2018-03-29] MEDS: Levothyroxine 75 MCG TAB PO SCH (05:36)
--- NOTE | 2018-03-29 08:10 | PCM.PYCHPN ---
Psychiatric Progress Note - Psychiatric Progress Note Patient seen today, length of contact: Pt evaluated, case discussed w/ team, chart reviewed Patient Chief Complaint: Inability to care for self Problems Identified/Issues Discussed: No new events; pending correction placement. Patient reports her mood is stable. She denies acute depression/anxiety. She has been compliant with Risperdal. No adverse effects to medications reported. She understands that she will need joint terminal attack controller placement. Medication Change: No Medical Record Reviewed: Yes Consults ordered or reviewed: Medicine consult, ID consult Mental Status Examination - Cognitive Function Orientation: Person, Place, Time Memory: Impaired Concentration: Poor Association: Loose Fund of Knowledge: Poor Decription of patient's judgement and insights: Poor I/J due to chronic dementia - Mood Mood: Neutral - Affect Affect: Broad - Speech Speech: Appropriate - Formal Thought Process Formal Thought Process: Circumstantial Psychotic Thoughts and Behaviors: Denies AH/VH - Suicidal Ideation Suicidal Ideation: No - Homicidal Ideation Homicidal Ideation: No Goal/Treatment Plan - Goal/Treatment Plan Need for Continued Stay: Severe functional impairment Progress Toward Problem(s) and Goals/Treatment Plan: Psychosis NOS, Alzheimer's Dementia without behavioral disturbance; patient is psychiatrically stable for referral for skilled nursing placement; pending correction placement -Individual and group therapy -Continue Aricept -Continue Risperdal -Medicine consult + ID consult re: L knee/leg cellulitis; patient to complete PO antibiotics today -Psychoeducation -Case discussed w/ POA and patient's PMD -Disposition planning- pending correction placement, see SW re: disposition planning
--- NOTE | 2018-03-29 11:23 | PCM.PYCHDC ---
Mental Status Examination - Mental Status Examination Orientation: Person, Place Memory: Impaired Mood: Neutral Affect: Broad Speech: Appropriate Attention: Poor Concentration: Poor Association: Loose Fund of Knowledge: Poor Formal Thought Process: Circumstantial Description of patient's judgement and insight: Poor I/J due to chronic dementia Psychotic Thoughts and Behaviors: Denies AH/VH Suicidal Ideation: No Current Homicidal Ideation?: No Discharge Summary - Discharge Note Reason for Hospitalization: HPI: 72 yo female w/ h/o Alzheimer's Dementia, presents w/ worsening memory, paranoia that she is being poisoned or contaminated, feelings that her daughter is mistreating her, belief that someone broke into her home and changed the alarm, tangential speech, mood lability, poor insight/judgment. Patient has also been hoarding at home. She did not have food at home and has decreased ability to care for herself. Payroll Clerk discussed case w/ patient's daughter, Denise Atkins ([phone]), who gave staff writer to modify medications as psychiatrically and medically indicated. Payroll Clerk informed patient's daughter that there is an increased risk of with treatment with antipsychotics in patient's w/ dementia. PPHx: No history of psychiatric admissions or medications PMHx: Hypothyroidism; HLD, anemia, h/o bladder surery, h/o colon polyp resection ALL: Cortison, PCN SHx: Lives alone, denies drugs/etoh/ cig use Consultations:: List each consultation separately and include: 1. Reason for request. 2. Findings. 3. Follow-up Consultations: Medicine consult, ID consult Summary of Hospital Course include:: 1. Description of specific treatment plan utilized for patients during their course of treatmen. 2. Summarize the time- course for resolution of acute symptoms and/or regressed behaviors. 3. Describe issues identified and worked on during hospitalization. 4. Describe medication utilized. 5. Describe medical problems identified and treated. 6. Reassessment of suicide risk Summary of Hospital Course: Patient was admitted to the psychiatry unit. Individual and group therapy were provided. Patient was stabilized on Risperdal 1 mg PO BID and Aricept 5 mg PO HS. Patient has chronic neurocognitive deficits which limit patient's ability to care for herself. Patient is psychiatrically stable for discharge to [facility]. No acute depression/anxiety/AH/VH/SI/HI/paranoia. Patient completed IV and PO antibiotic treatment for L knee/leg cellulitis. - Diagnosis (1) Dementia with behavioral disturbance Current Visit: Yes Status: Chronic Priority: Medium (2) Psychosis Current Visit: Yes Status: Resolved - Final Diagnosis (DSM 5) Condition upon Discharge: STABLE DSM 5: Psychosis NOS, Alzheimer's Dementia without behavioral disturbance Disposition: TRANSF TO SNF Follow-up Treatment Plan: Psychosis NOS, Alzheimer's Dementia without behavioral disturbance; patient is psychiatrically stable for discharge to [facility]. Discharge to [facility] - Smoking Cessation Smoking Cessation Medication prescribed: No Reason for not providing: Not indicated - Antipsychotic Medications Pt discharged on 2 or more routine antipsychotic medications: No
--- NOTE | 2018-03-29 23:58 | CP.PCM.PN ---
Subjective - Date & Time of Evaluation Date of Evaluation: 03/29/18 Time of Evaluation: 18:35 Objective - Vital Signs/Intake and Output Vital Signs (last 24 hours): Temp Pulse Resp BP Pulse Ox 97.4 F L 82 19 146/77 18 L 03/29/18 16:01 03/29/18 16:01 03/29/18 16:01 03/29/18 16:01 03/26/18 16:51 - Medications Medications: Current Medications Acetaminophen (Tylenol 325mg Tab) 650 mg PO Q4 PRN PRN Reason: Pain, moderate (4-7) Last Admin: 03/29/18 19:36 Dose: 650 mg Donepezil HCl (Aricept) 5 mg PO HS [facility] Last Admin: 03/29/18 21:02 Dose: 5 mg Levothyroxine Sodium (Synthroid) 75 mcg PO DAILY@0630 [facility] Last Admin: 03/29/18 05:36 Dose: 75 mcg Risperidone (Risperdal Tab) 1 mg PO BID [facility] Last Admin: 03/29/18 16:23 Dose: 1 mg - Labs Labs: 03/18/18 18:55 03/18/18 19:55 Assessment and Plan (1) Dementia with behavioral disturbance Status: Chronic (2) Hypothyroidism (acquired) Status: Acute (3) Psychosis Status: Resolved (4) Cellulitis Status: Acute (5) Right knee skin infection Status: Acute
[2018-03-30 06:07] VITALS: BP 112/67; PULSE 80; RESP 18; TEMP 97.2
[2018-03-30] MEDS: Levothyroxine 75 MCG TAB PO SCH (06:16)
--- NOTE | 2018-03-30 08:09 | PCM.PYCHDC ---
Mental Status Examination - Mental Status Examination Orientation: Person, Place Memory: Impaired Mood: Neutral Affect: Broad Speech: Appropriate Attention: Poor Concentration: Poor Association: Loose Fund of Knowledge: Poor Formal Thought Process: Circumstantial Description of patient's judgement and insight: Poor I/J due to chronic dementia Psychotic Thoughts and Behaviors: Denies AH/VH Suicidal Ideation: No Current Homicidal Ideation?: No Discharge Summary - Discharge Note Reason for Hospitalization: HPI: 72 yo female w/ h/o Alzheimer's Dementia, presents w/ worsening memory, paranoia that she is being poisoned or contaminated, feelings that her daughter is mistreating her, belief that someone broke into her home and changed the alarm, tangential speech, mood lability, poor insight/judgment. Patient has also been hoarding at home. She did not have food at home and has decreased ability to care for herself. System Auditor discussed case w/ patient's daughter, Denise Atkins ([phone]), who gave typewriter repairer to modify medications as psychiatrically and medically indicated. System Auditor informed patient's daughter that there is an increased risk of with treatment with antipsychotics in patient's w/ dementia. PPHx: No history of psychiatric admissions or medications PMHx: Hypothyroidism; HLD, anemia, h/o bladder surery, h/o colon polyp resection ALL: Cortison, PCN SHx: Lives alone, denies drugs/etoh/ cig use Consultations:: List each consultation separately and include: 1. Reason for request. 2. Findings. 3. Follow-up Consultations: Medicine consult, ID consult Summary of Hospital Course include:: 1. Description of specific treatment plan utilized for patients during their course of treatmen. 2. Summarize the time- course for resolution of acute symptoms and/or regressed behaviors. 3. Describe issues identified and worked on during hospitalization. 4. Describe medication utilized. 5. Describe medical problems identified and treated. 6. Reassessment of suicide risk Summary of Hospital Course: Patient was admitted to the psychiatry unit. Individual and group therapy were provided. Patient was stabilized on Risperdal 1 mg PO BID and Aricept 5 mg PO HS. Patient has chronic neurocognitive deficits which limit patient's ability to care for herself. Patient is psychiatrically stable for discharge to halfway. No acute depression/anxiety/AH/VH/SI/HI/paranoia. Patient completed IV and PO antibiotic treatment for L knee/leg cellulitis. - Diagnosis (1) Dementia with behavioral disturbance Current Visit: Yes Status: Chronic Priority: Medium (2) Psychosis Current Visit: Yes Status: Resolved - Final Diagnosis (DSM 5) Condition upon Discharge: STABLE DSM 5: Psychosis NOS, Alzheimer's Dementia without behavioral disturbance Disposition: TRANSF TO SNF Follow-up Treatment Plan: Psychosis NOS, Alzheimer's Dementia without behavioral disturbance; patient is psychiatrically stable for discharge to halfway. Discharge to halfway - Smoking Cessation Smoking Cessation Medication prescribed: No Reason for not providing: Not indicated - Antipsychotic Medications Pt discharged on 2 or more routine antipsychotic medications: No
== END 2018-03-30 09:46 | DRG 885 ==
LOC: H.ER 19:51 → H.STEP 23:57
PROVIDERS: ADMIT Psychiatry & Neurology Psychiatry; ATTEND Psychiatry & Neurology Psychiatry
PROC: GZHZZZZ Group Psychotherapy (ICD-10-PCS; principal; 2018-02-16)
PROC: GZ58ZZZ Individual Psychotherapy, Cognitive-Behavioral (ICD-10-PCS; 2018-02-16)
DX: F29 Unspecified psychosis not due to a substance or known physiological condition (principal); F02.81 Dementia in other diseases classified elsewhere, unspecified severity, with behavioral disturbance; L03.116 Cellulitis of left lower limb; G30.9 Alzheimer's disease, unspecified; E03.9 Hypothyroidism, unspecified; E78.5 Hyperlipidemia, unspecified; E78.00 Pure hypercholesterolemia, unspecified; Z86.010 Personal history of colon polyps; Z88.0 Allergy status to penicillin